=== PATIENT | male | born 1960 | race African-American/Black ===

== ENCOUNTER 2016-09-22 16:22 | Inpatient (IN) | payer OTHER, MEDICAID, MEDICARE ==
[~2016-09-22] VITALS: Ht 180.3 cm; Wt 72.3 kg
[~2016-09-22 16:22] MED LIST: ASPI81TA11 PO; CARV3.12 PO; CYCL1TAB29 PO; FURO40TA PO; LEVEMIR SQ; LISI40TA PO; ONDANSETRON HCL 4 MG/2 ML VIAL IV PUSH ONE; POTA-245 PO; PROPOFOL 200 MG/20 ML AMP IV ONE; TRAM50TA PO
[2016-09-22 16:24] VITALS: BP 204/100; PULSE 94; RESP 20; TEMP 98.2; O2SAT 97
[2016-09-22 16:41] VITALS: BP 191/88; PULSE 89
[2016-09-22] MEDS ORDERED: INSULIN HUMAN REGULAR 1,000 UNITS/10 ML VIAL SQ ONE (19:30)
[2016-09-22] MEDS ORDERED: SODIUM CHLOR 0.9% 1000 ML INJ 1,000 ML IV ONE (19:30)
[2016-09-22 19:31] VITALS: BP 207/97; PULSE 98; RESP 20; O2SAT 99
--- NOTE | 2016-09-22 19:34 | PD ---
HPI Chief Complaint: Eye Problems/Injury Stated Complaint: DR SENT/EYE PAIN Time Seen by Provider: 19:34 Travel History International Travel<30 days: No Contact w/Intl Traveler<30days: No Known affected area: No History of Present Illness HPI 56-year-old male with history of diabetes, COPD, CHF, with persistent vitreous hemorrhage, diabetic retinopathy, and blindness, presents to emergency department at the instruction of Dr. Orourke, for pain control and surgical intervention tomorrow on the left eye. Patient was in the office today and was noted to have elevated intraocular pressures of greater than 40. Following a YAG procedure, the patient developed pressures greater than 60 and a severe headache. Patient was given 500 mg Diamox in office. Patient states that this was similar to his symptoms following his last procedure. He denies a nausea vomiting. No fever or chills. Patient does report at this time that he feels like his blood glucose is not controlled as he has not been able to take his medications. He denies chest pain or tightness. No difficulty breathing. He has no other symptoms to report. History Social History Alcohol Use: No Tobacco Use: No Allergies-Medications (Allergen,Severity, Reaction): Coded Allergies: Neurontin (Verified Allergy, Intermediate, Itching, 09/22/16) Reported Meds & Prescriptions Reported Meds & Active Scripts Active Reported Tramadol (Tramadol HCl) 50 Mg Tab 50 Mg PO Q8H PRN Aspirin EC (Aspirin) 81 Mg Tabdr 81 Mg PO DAILY Carvedilol 3.125 Mg Tab 3.125 Mg PO BID Flexeril (Cyclobenzaprine HCl) 10 Mg Tab 10 Mg PO TID Furosemide 40 Mg Tab 40 Mg PO DAILY Levemir Inj (Insulin Detemir) 1,000 unit/ 10 ML Vial 28 Units SQ DAILY Do not mix with any other Insulin. Lisinopril 40 Mg Tab 40 Mg PO DAILY Klor-Con M20 (Potassium Chloride Microencaps) 20 Meq Tab 20 Meq PO DAILY Review of Systems Except as stated in HPI: all other systems reviewed are Neg Physical Exam Narrative GENERAL: Well-nourished male patient, lying in bed, in no acute distress SKIN: Warm and dry. HEAD: Atraumatic. Normocephalic. EYES: Pupils equal and round. No scleral icterus. Slight drainage from the left eye. Patient is maintaining his eyes closed for comfort. There is mild left periorbital edema. No significant erythema. ENT: No nasal bleeding or discharge. Mucous membranes pink and moist. NECK: Trachea midline. No JVD. CARDIOVASCULAR: Elevated rate and rhythm. No murmur appreciated. RESPIRATORY: No accessory muscle use. Clear to auscultation. Breath sounds equal bilaterally. GASTROINTESTINAL: Abdomen soft, non-tender, nondistended. Hepatic and splenic margins not palpable. MUSCULOSKELETAL: No obvious deformities. No clubbing. No cyanosis. No edema. NEUROLOGICAL: Awake and alert. No obvious cranial nerve deficits. Motor grossly within normal limits. Normal speech. PSYCHIATRIC: Appropriate mood and affect; insight and judgment normal. Data Data Last Documented VS Vital Signs Date Time Temp Pulse Resp B/P Pulse Ox O2 Delivery O2 Flow Rate FiO2 09/22/16 20:19 88 16 205/98 100 Room Air 09/22/16 16:24 98.2 Orders Complete Blood Count With Diff (09/22/16 19:28) Basic Metabolic Panel (Bmp) (09/22/16 19:28) Prothrombin Time / Inr (Pt) (09/22/16 19:28) Act Partial Throm Time (Ptt) (09/22/16 19:28) Iv Access Insert/Monitor (09/22/16 19:28) Beta Hydroxybutyrate (Acetone) (09/22/16 19:28) Sodium Chlor 0.9% 1000 Ml Inj (Ns 1000 M (09/22/16 19:30) Insulin Human Regular Inj (Novolin R Inj (09/22/16 19:30) Npo After Midnight W/ Po Meds (09/23/16 Breakfast) Sodium Chlorid 0.9% 500 Ml Inj (Ns 500 M (09/22/16 20:15) Chest, Single Ap (09/22/16 ) Electrocardiogram (09/22/16 ) Hydromorphone Pf Inj (Dilaudid Pf Inj) (09/22/16 20:30) Blood Glucose (09/22/16 20:41) Blood Glucose (09/22/16 21:41) Hydromorphone Pf Inj (Dilaudid Pf Inj) (09/22/16 20:45) Labs Laboratory Tests Test 09/22/16 20:00 White Blood Count 8.4 TH/MM3 Red Blood Count 4.46 MIL/MM3 Hemoglobin 11.3 GM/DL Hematocrit 34.2 % Mean Corpuscular Volume 76.6 FL Mean Corpuscular Hemoglobin 25.3 PG Mean Corpuscular Hemoglobin 33.0 % Concent Red Cell Distribution Width 14.9 % Platelet Count 146 TH/MM3 Mean Platelet Volume 11.1 FL Neutrophils (%) (Auto) 77.6 % Lymphocytes (%) (Auto) 14.5 % Monocytes (%) (Auto) 7.0 % Eosinophils (%) (Auto) 0.7 % Basophils (%) (Auto) 0.2 % Neutrophils # (Auto) 6.5 TH/MM3 Lymphocytes # (Auto) 1.2 TH/MM3 Monocytes # (Auto) 0.6 TH/MM3 Eosinophils # (Auto) 0.1 TH/MM3 Basophils # (Auto) 0.0 TH/MM3 CBC Comment DIFF FINAL Differential Comment Prothrombin Time 10.6 SEC Prothromb Time International 1.0 RATIO Ratio Activated Partial 21.8 SEC Thromboplast Time MDM Medical Decision Making Medical Screen Exam Complete: Yes Emergency Medical Condition: Yes Medical Record Reviewed: Yes Differential Diagnosis Increased intraocular pressure versus postop complication versus postop infection versus headache, cluster versus tension versus migraine versus electrolyte abnormality Narrative Course 56-year-old male presents to the emergency department at the instruction of Dr. Alvarado for admission for pain control and surgical intervention on his eye tomorrow. Patient is evaluated in the triage area. He is tearful due to his left-sided eye and head pain. He has no other focal deficits or weakness. I discussed the patient with KRISTINE Rush for Dr. Alvarado. She requests the patient be admitted for pain control and given IV mannitol 150 Grams over 60 minutes. She requests he be nothing by mouth after midnight. I discussed imaging studies with her and she states patient does not need any at this time. Preop lab work, EKG, and chest x-ray are ordered and once a medical bed becomes available, patient will be transferred to that pod and care assumed by that provider. Patient is noted to be hyperglycemic. Bedside glucose is 459. I have ordered a half liter normal saline bolus at this time if the patient is not on a monitor and has a history of CHF as well as 10 units subcutaneous regular insulin. I discussed the patient with Dr. Glover. He will assume care of the patient. Diagnosis Primary Impression: Increased intraocular pressure Qualified Code: H40.052 - Increased intraocular pressure, left Additional Impressions: Headache Qualified Code: R51 - Intractable episodic headache, unspecified headache type Vitreous hemorrhage of left eye Diabetic retinopathy Qualified Code: E13.3593 - Proliferative diabetic retinopathy of both eyes associated with diabetes mellitus of other type, unspecified proliferative retinopathy type Hyperglycemia Hypertension Qualified Code: I10 - Essential hypertension Admitting Information Admitting Physician Requests: Admit Condition: Stable Kimi Guzman Sep 22, 2016 19:34
[2016-09-22] MEDS ORDERED: SODIUM CHLORID 0.9% 500 ML INJ 500 ML IV ONE (20:15)
[2016-09-22 20:18] LABS: AUTOMATED NEUTROPHIL # 6.5 TH/MM3 (1.8-7.7); BASOPHIL % 0.2 % (0.0-2.0); EOSINOPHIL # 0.1 TH/MM3 (0-0.4); EOSINOPHIL % 0.7 % (0.0-4.0); HEMATOCRIT 34.2 % (39.0-51.0); HEMO FLAGS DIFF FINAL; LYMPH % 14.5 % (9.0-44.0); LYMPHOCYTE # 1.2 TH/MM3 (1.0-4.8); MEAN CELL VOLUME 76.6 FL (80.0-100.0); MEAN CORPUSCULAR HEMOGLOBIN 25.3 PG (27.0-34.0); NEUT % 77.6 % (16.0-70.0); PLATELET COUNT 146 TH/MM3 (150-450); RED BLOOD COUNT 4.46 MIL/MM3 (4.50-5.90); RED CELL DISTRIBUTION WIDTH 14.9 % (11.6-17.2); WHITE BLOOD COUNT 8.4 TH/MM3 (4.0-11.0)
[2016-09-22 20:19] VITALS: BP 205/98; PULSE 88; RESP 16; O2SAT 100
[2016-09-22] MEDS ORDERED: HYDROmorphone HCL PF 1 MG/ML VIAL IV PUSH ONE ×2 (20:30→20:45)
[2016-09-22 20:31] LABS: APTT (PATIENT) 21.8 SEC (24.3-30.1); PROTHROMBIN TIME - PATIENT 10.6 SEC (9.8-11.6)
--- NOTE | 2016-09-22 20:38 | RADRPT ---
EXAM DATE/TIME: 09/22/2016 20:26 [facility] COMPARISON: CHEST SINGLE AP, March 30, 2016, 7:22. INDICATIONS : Chest pain. MEDICAL HISTORY : Congestive heart failure. SURGICAL HISTORY : None. ENCOUNTER: Initial ACUITY: 1 day PAIN SCORE: 8/10 LOCATION: Bilateral chest FINDINGS: A single view of the chest demonstrates the lungs to be symmetrically aerated without evidence of mas s, infiltrate or effusion. The cardiomediastinal contours are unremarkable. Osseous structures are intact. CONCLUSION: No acute disease. Darion Kinsey MD on September 22, 2016 at 20:36 Board Certified Radiologist. This report was verified electronically.
--- NOTE | 2016-09-22 20:48 | PD ---
Data Data Last Documented VS Vital Signs Date Time Temp Pulse Resp B/P Pulse Ox O2 Delivery O2 Flow Rate FiO2 09/22/16 22:01 90 18 221/111 98 Room Air 09/22/16 16:24 98.2 Orders Complete Blood Count With Diff (09/22/16 19:28) Basic Metabolic Panel (Bmp) (09/22/16 19:28) Prothrombin Time / Inr (Pt) (09/22/16 19:28) Act Partial Throm Time (Ptt) (09/22/16 19:28) Iv Access Insert/Monitor (09/22/16 19:28) Beta Hydroxybutyrate (Acetone) (09/22/16 19:28) Sodium Chlor 0.9% 1000 Ml Inj (Ns 1000 M (09/22/16 19:30) Insulin Human Regular Inj (Novolin R Inj (09/22/16 19:30) Sodium Chlorid 0.9% 500 Ml Inj (Ns 500 M (09/22/16 20:15) Chest, Single Ap (09/22/16 ) Electrocardiogram (09/22/16 ) Hydromorphone Pf Inj (Dilaudid Pf Inj) (09/22/16 20:30) Blood Glucose (09/22/16 20:41) Blood Glucose (09/22/16 21:41) Hydromorphone Pf Inj (Dilaudid Pf Inj) (09/22/16 20:45) Admit Order (Ed Use Only) (09/22/16 22:05) Labs Laboratory Tests Test 09/22/16 20:00 White Blood Count 8.4 TH/MM3 Red Blood Count 4.46 MIL/MM3 Hemoglobin 11.3 GM/DL Hematocrit 34.2 % Mean Corpuscular Volume 76.6 FL Mean Corpuscular Hemoglobin 25.3 PG Mean Corpuscular Hemoglobin 33.0 % Concent Red Cell Distribution Width 14.9 % Platelet Count 146 TH/MM3 Mean Platelet Volume 11.1 FL Neutrophils (%) (Auto) 77.6 % Lymphocytes (%) (Auto) 14.5 % Monocytes (%) (Auto) 7.0 % Eosinophils (%) (Auto) 0.7 % Basophils (%) (Auto) 0.2 % Neutrophils # (Auto) 6.5 TH/MM3 Lymphocytes # (Auto) 1.2 TH/MM3 Monocytes # (Auto) 0.6 TH/MM3 Eosinophils # (Auto) 0.1 TH/MM3 Basophils # (Auto) 0.0 TH/MM3 CBC Comment DIFF FINAL Differential Comment Prothrombin Time 10.6 SEC Prothromb Time International 1.0 RATIO Ratio Activated Partial 21.8 SEC Thromboplast Time Sodium Level 136 MEQ/L Potassium Level 3.9 MEQ/L Chloride Level 103 MEQ/L Carbon Dioxide Level 23.1 MEQ/L Anion Gap 10 MEQ/L Blood Urea Nitrogen 41 MG/DL Creatinine 2.12 MG/DL Estimat Glomerular Filtration 39 ML/MIN Rate Random Glucose 439 MG/DL Calcium Level 8.7 MG/DL B-Hydroxybutyrate 0.28 MMOL/L [facility] Medical Record Reviewed: Yes Supervised Visit with MARC: Yes Narrative Course I, Dr. Lechuga, have reviewed the advance practice practitioner's documentation and am in agreement, met with the patient face to face, made the diagnosis, and the medical decision making was done by me. 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 Nothing by mouth past midnight status requested. The patient's pain is significantly improved after 0.75 mg hydromorphone. Case d/w Dr Wiley for [facility]. Dr Alvarado will take pt to OR in AM. Diagnosis Primary Impression: Increased intraocular pressure Qualified Code: H40.052 - Increased intraocular pressure, left Additional Impressions: Headache Qualified Code: R51 - Intractable episodic headache, unspecified headache type Hyperglycemia Diabetic retinopathy Qualified Code: E13.3593 - Proliferative diabetic retinopathy of both eyes associated with diabetes mellitus of other type, unspecified proliferative retinopathy type Vitreous hemorrhage of left eye Hypertension Qualified Code: I10 - Essential hypertension Condition: Stable Crow Lechuga MD Sep 22, 2016 20:48 Crow Lechuga MD Sep 22, 2016 20:48
[2016-09-22 20:58] LABS: BETA-HYDROXYBUTYRATE 0.28 MMOL/L (0.00-0.39); BICARBONATE 23.1 MEQ/L (21.0-32.0)
[2016-09-22 21:12] LABS: POTASSIUM 3.9 MEQ/L (3.5-5.1)
[2016-09-22 22:01] VITALS: BP 221/111; PULSE 90; RESP 18; O2SAT 98
[2016-09-22 22:13] VITALS: BP 176/97; PULSE 88; RESP 18; O2SAT 99
[2016-09-22] MEDS ORDERED: ACETAMINOPHEN 325 MG TAB PO PRN (22:30)
[2016-09-22] MEDS ORDERED: HYDROmorphone HCL PF 1 MG/ML VIAL IV PRN ×3 (22:30)
[2016-09-22] MEDS ORDERED: ACETAMINOPHEN/HYDROcodone 325 MG/5 MG TAB PO PRN (22:30)
[2016-09-22] MEDS ORDERED: NALOXONE HCL 0.4 MG/ML AMP IV PRN (22:30)
[2016-09-22] MEDS ORDERED: SODIUM CHLORIDE 0.9% FLUSH 5 ML FLUSH FLUSH PRN (22:30)
[2016-09-22] MEDS: SODIUM CHLOR 0.9% 1000 ML INJ 1,000 ML IV SCH (23:07)
--- NOTE | 2016-09-22 23:26 | HHI.HP ---
[facility] Marylin Gonzalez MD Admission Diagnosis L Eye Pain, Hyperglycemia, Renal Insufficiency Diagnoses: Chief Complaint: Left eye pain Travel History International Travel<30 Days: No Contact w/Intl Traveler <30 Da: No Traveled to Known Affected Are: No History of Present Illness 56-year-old male with a history of diabetes, COPD, CHF and vitreous hemorrhage, diabetic retinopathy and blindness was sent to the ED by Dr. Orourke for surgical intervention on the left eye in the a.m. According to the ER reports patient was seen in Dr. Orourke's office and was noted to have elevated intraocular pressures greater than 40, a YAG procedure was performed and the patient suffered increased pressures in the severe headache. Patient states in August he began to to go blind in both eyes due to vitreous hemorrhage and diabetic retinopathy. Today he denies any nausea, vomiting, fever or chills. He denies any chest pain or shortness of breath. Patient does understand the Dr. Orourke will be performing surgery in the a.m. Review of Systems Constitutional: DENIES: Fever, Chills Eyes: COMPLAINS OF: Eye inflammation, Eye pain, Vision loss Respiratory: DENIES: Cough, Sputum production, Shortness of breath Cardiovascular: DENIES: Chest pain, Lower Extremity Edema, Orthopnea Gastrointestinal: DENIES: Abdominal pain, Nausea, Vomiting Genitourinary: DENIES: Hematuria Musculoskeletal: DENIES: Back pain, Neck pain Integumentary: DENIES: Rash Hematologic/lymphatic: DENIES: Lymphadenopathy Immunologic/allergic: DENIES: Urticaria Past Family Social History Past Medical History COPD CHF Hypertension Diabetes Dyslipidemia Persistent vitreous hemorrhages Diabetic retinopathy Blindness Past Surgical History Right total knee replacement Multiple eye surgeries Reported Medications Reported Meds & Active Scripts Active Reported Tramadol (Tramadol HCl) 50 Mg Tab 50 Mg PO Q8H PRN Aspirin EC (Aspirin) 81 Mg Tabdr 81 Mg PO DAILY Carvedilol 3.125 Mg Tab 3.125 Mg PO BID Flexeril (Cyclobenzaprine HCl) 10 Mg Tab 10 Mg PO TID Furosemide 40 Mg Tab 40 Mg PO DAILY Levemir Inj (Insulin Detemir) 1,000 unit/ 10 ML Vial 28 Units SQ DAILY Do not mix with any other Insulin. Lisinopril 40 Mg Tab 40 Mg PO DAILY Klor-Con M20 (Potassium Chloride Microencaps) 20 Meq Tab 20 Meq PO DAILY Allergies: Coded Allergies: Neurontin (Verified Allergy, Intermediate, Itching, 09/22/16) Active Ordered Medications Current Medications Medications (Trade) Dose Ordered Sig/Naila Route Start Time Stop Time Status Last Admin (NS 1000 ml Inj) 1,000 ml @ 100 mls/hr Q10H IV 09/22/16 22:20 09/22/16 23:07 (NS Flush) 2 ml UNSCH PRN FLUSH 09/22/16 22:30 (NS Flush) 2 ml BID FLUSH 09/23/16 09:00 (Tylenol) 650 mg Q4H PRN PO 09/22/16 22:30 ([place] 5-325 Mg) 1 tab Q4H PRN PO 09/22/16 22:30 ([place] 10-325 Mg) 1 tab Q4H PRN PO 09/22/16 22:30 09/23/16 00:32 (Dilaudid Pf Inj) 0.5 mg Q3H PRN IV 09/22/16 22:30 (Dilaudid Pf Inj) 1 mg Q3H PRN IV 09/22/16 22:30 (Dilaudid Pf Inj) 1 mg Q3H PRN IV 09/22/16 22:30 09/23/16 00:31 (Narcan Inj) 0.4 mg UNSCH PRN IV 09/22/16 22:30 Family History Family history significant for diabetes Social History Tobacco use: Denies Alcohol use: Socially Illicit drug use: Denies Physical Exam Vital Signs Vital Signs Date Time Temp Pulse Resp B/P Pulse Ox O2 Delivery O2 Flow Rate FiO2 09/22/16 22:13 88 18 176/97 99 Room Air 09/22/16 22:01 90 18 221/111 98 Room Air 09/22/16 20:19 88 16 205/98 100 Room Air 09/22/16 19:31 98 20 207/97 99 09/22/16 16:41 89 191/88 09/22/16 16:24 98.2 94 20 204/100 97 Room Air Physical Exam GENERAL: This is a well-nourished, well-developed patient, in no apparent distress. SKIN: No rashes, ecchymoses or lesions. Cool and dry. HEAD: Atraumatic. Normocephalic. No temporal or scalp tenderness. EYES: Erythematous sclera, complete blindness. Mild drainage. ENT: Nose without bleeding, purulent drainage or septal hematoma. Throat without erythema, tonsillar hypertrophy or exudate. Uvula midline. Airway patent. NECK: Trachea midline. No JVD . CARDIOVASCULAR: Regular rate and rhythm without murmurs, gallops, or rubs. RESPIRATORY: Clear to auscultation. Breath sounds equal bilaterally. No wheezes , rales, or rhonchi. GASTROINTESTINAL: Abdomen soft, non-tender, nondistended. MUSCULOSKELETAL: Extremities without clubbing, cyanosis, or edema. No joint tenderness, effusion, or edema noted. No calf tenderness. NEUROLOGICAL: Awake and alert. Motor and sensory grossly within normal limits. Five out of 5 muscle strength in all muscle groups. Normal speech. Laboratory Laboratory Tests Test 09/22/16 20:00 White Blood Count 8.4 Red Blood Count 4.46 Hemoglobin 11.3 Hematocrit 34.2 Mean Corpuscular Volume 76.6 Mean Corpuscular Hemoglobin 25.3 Mean Corpuscular Hemoglobin 33.0 Concent Red Cell Distribution Width 14.9 Platelet Count 146 Mean Platelet Volume 11.1 Neutrophils (%) (Auto) 77.6 Lymphocytes (%) (Auto) 14.5 Monocytes (%) (Auto) 7.0 Eosinophils (%) (Auto) 0.7 Basophils (%) (Auto) 0.2 Neutrophils # (Auto) 6.5 Lymphocytes # (Auto) 1.2 Monocytes # (Auto) 0.6 Eosinophils # (Auto) 0.1 Basophils # (Auto) 0.0 CBC Comment DIFF FINAL Differential Comment Prothrombin Time 10.6 Prothromb Time International 1.0 Ratio Activated Partial 21.8 Thromboplast Time Sodium Level 136 Potassium Level 3.9 Chloride Level 103 Carbon Dioxide Level 23.1 Anion Gap 10 Blood Urea Nitrogen 41 Creatinine 2.12 Estimat Glomerular Filtration 39 Rate Random Glucose 439 Calcium Level 8.7 B-Hydroxybutyrate 0.28 Result Diagram: 09/22/16199909/22/161999 Assessment and Plan Problem List: (1) Diabetic retinopathy ICD Code: E11.319 Status: Acute (2) Diabetes mellitus ICD Code: E11.9 Status: Chronic (3) Hypertension ICD Code: I10 Status: Chronic (4) CHF (congestive heart failure) ICD Code: I50.9 Status: Acute Assessment and Plan 56-year-old male with a history of diabetes, COPD, CHF and vitreous hemorrhage, diabetic retinopathy and blindness was sent to the ED by Dr. Orourke for surgical intervention on the left eye in the a.m. Diabetic retinopathy -Surgery planned by Dr. Alvarado's in a.m. -Pain management with IV Dilaudid, and [place] by mouth Diabetes, chronic -Accu-Cheks before meals and at bedtime sliding scale insulin Hypertension, chronic -Monitor vitals -Clonidine when necessary -Reordered home medications lisinopril CHF, chronic -Reorder home medications Coreg and Lasix -Watch for fluid overload DVT prophylaxis: SCDs Written by Modesta CARMONA, acting as scribe for Dr. Wiley on 09/22/16 at 2335. The documentation accurately reflects the work performed [id number] and decisions made by me and the physician Dr Wiley on 09/22/16. The documentation accurately reflects the work performed [id number] by me Dr Wiley on 09/22/16. Discussed Condition With Patient and ED physician Physician Certification 2 Midnight Certification Type: Admission for Inpatient Services Order for Inpatient Services The services are ordered in accordance with Medicare regulations or non- Medicare payer requirements, as applicable. In the case of services not specified as inpatient-only, they are appropriately provided as inpatient services in accordance with the 2-midnight benchmark. Estimated LOS (days): 3 days is the estimated time the patient will need to remain in the hospital, assuming treatment plan goals are met and no additional complications. Post-Hospital Plan: Home Problem Qualifiers (1) Diabetic retinopathy: Qualified Code: E13.3593 - Proliferative diabetic retinopathy of both eyes associated with diabetes mellitus of other type, unspecified proliferative retinopathy type (2) Hypertension: Qualified Code: I10 - Essential hypertension Modesta Pierre Sep 22, 2016 23:26 Sahra Wiley MD Sep 23, 2016 04:08
[2016-09-22] MEDS ORDERED: MANNITOL 12.5 GM/50 ML VIAL IV ONE (23:30)
[2016-09-22] MEDS ORDERED: MANNITOL INJ 50 ML ONE (23:51)
[2016-09-23] MEDS: ACETAMINOPHEN/HYDROcodone 325 MG/10 MG TAB PO PRN (00:32)
[2016-09-23] MEDS ORDERED: GLUCAGON 1 MG/ML VIAL OTHER PRN (02:30)
[2016-09-23] MEDS ORDERED: DEXTROSE 50% IN WATER 50 ML VIAL(D50) IV PUSH PRN (02:30)
[2016-09-23 03:25] VITALS: BP 169/85; PULSE 76; RESP 20; O2SAT 99
--- NOTE | 2016-09-23 05:27 | EKG ---
Date Performed: 09/22/2016 Time Performed: 19:23:26 PTAGE: 56 years EKG: Sinus rhythm POSSIBLE LEFT ATRIAL ENLARGEMENT NONSPECIFIC ST & T-WAVE ABNORMALITY BORDERLINE ECG NO SIGNIFICANT C HANGE FROM PRIOR ELECTROCARDIOGRAM. PREVIOUS TRACING : 09/22/2016 19.22 DOCTOR: Jose Mcneal Interpretating Date/Time 09/23/2016 05:26:31
[2016-09-23 06:53] VITALS: BP 178/90; PULSE 81; RESP 20; TEMP 97.9; O2SAT 98
[2016-09-23] MEDS: INSULIN ASPART SUPPLEMENTAL SCALE SQ SCH ×4 (07:00→21:04)
[2016-09-23] MEDS ORDERED: DEXAMETHASONE SOD PHOS 4 MG/ML VIAL ONE (07:15)
[2016-09-23] MEDS ORDERED: BALANCED SALT SOLN OPHT IRRIG 15 ML BTL ONE (07:15)
[2016-09-23] MEDS ORDERED: STERILE WATER FOR INJ 20 ML VIAL ONE (07:15)
[2016-09-23] MEDS ORDERED: TOBRAMYCIN 0.3%/DEXAMETHASONE 0.1% OPHT SUSP 5 ML BTL ONE ×2 (07:15→08:54)
[2016-09-23] MEDS ORDERED: TOBRAMYCIN/DEXAMETHASONE OPTH OINT 3.5 GM TUBE ONE (07:15)
[2016-09-23] MEDS ORDERED: EPINEPHrine HCL (1:1000) 1 MG/ML VIAL ONE (07:15)
[2016-09-23] MEDS ORDERED: ceFAZolin INJ 1,000 MG VIAL ONE (07:16)
[2016-09-23 07:34] VITALS: BP 190/91
[2016-09-23] MEDS ORDERED: ATROPINE SULFATE 1% OPHT SOLN 2 ML BTL ONE (08:23)
[2016-09-23] MEDS ORDERED: FAMOTIDINE 20 MG/2 ML VIAL ONE (08:27)
[2016-09-23] MEDS ORDERED: MIDAZOLAM HCL 2 MG/2 ML VIAL ONE (08:27)
[2016-09-23] MEDS ORDERED: CYCLOPENTOLATE HCL 1% OPHT SOLN 2 ML BTL LEFT EYE SCH (08:30)
[2016-09-23] MEDS ORDERED: PHENYLEPHRINE HCL 2.5% OPTH SOLN 2 ML BTL LEFT EYE SCH (08:30)
[2016-09-23] MEDS ORDERED: ATROPINE SULFATE 1% OPHT SOLN 5 ML BTL LEFT EYE SCH (08:30)
[2016-09-23] MEDS ORDERED: TROPICAMIDE 1% OPTH SOLN 2 ML BTL LEFT EYE SCH (08:30)
[2016-09-23] MEDS ORDERED: BUPIVACAINE HCL PF 0.75% 10 ML VIAL ONE (08:54)
[2016-09-23] MEDS: SODIUM CHLORIDE 0.9% FLUSH 5 ML FLUSH FLUSH SCH ×2 (09:00→21:00)
[2016-09-23] MEDS ORDERED: LABETALOL HCL 100 MG/20 ML VIAL ONE (11:29)
[2016-09-23] MEDS ORDERED: *diphenhydrAMINE HCL 50 MG/ML VIAL PERIprocedural Use ONLY ONE (11:44)
[2016-09-23] MEDS ORDERED: DO NOT ADM ANY ANTICOAGULANT DRUGS XX PRN (11:45)
[2016-09-23] MEDS: POTASSIUM CHLORIDE 20 MEQ CONTROLLED RELEASE TAB PO SCH (11:50)
[2016-09-23] MEDS: CARVEDILOL 3.125 MG TAB PO SCH ×2 (11:50→21:03)
[2016-09-23] MEDS: FUROSEMIDE 40 MG TAB PO SCH (11:50)
[2016-09-23] MEDS: LISINOPRIL 20 MG TAB PO SCH (11:50)
[2016-09-23] MEDS ORDERED: ONDANSETRON HCL 4 MG/2 ML VIAL IM PRN (12:00)
[2016-09-23] MEDS ORDERED: LACTATED RINGER'S 1000 ML INJ 1,000 ML IV SCH (12:00)
[2016-09-23] MEDS ORDERED: oxyCODONE/ACETAMINOPHEN 5 MG/325 MG TAB PO PRN (12:00)
[2016-09-23] MEDS ORDERED: *morphine SULFATE 8 MG/ML PERIprocedure ONLY ONE (12:15)
[2016-09-23] MEDS ORDERED: *ENALAPRILAT 1.25 MG/ML VIAL PERIprocedural Use ONLY ONE (12:23)
--- NOTE | 2016-09-23 12:23 | MP ---
cc: SUNNY HUITRON M.D. 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 SURGEON Dr. Sunny Huitron. ANESTHESIA General laryngeal mask anesthesia. INDICATION Mr. Avila is a 56-year-old gentleman with a history of severe proliferative diabetic retinopathy. He underwent a second surgical procedure on 08/26/2016 to his left eye, at which time there was extreme ischemia and areas of traction and retinal detachment. This was repaired and laser performed and then silicone oil instilled. The patient was doing fairly well with improving vision to approximately counting fingers at 5 feet in his left eye when he presented with a 3-day history of headache and eye pain in the left eye. His pressure was found to be 44 and he had iris bombe. He was sent to a disaster or damage control specialist who performed an inferior laser iridotomy, however, his pressure continued to rise up to the level of 60, he was in extreme pain and agitation, complaining of headache and eye ache, when he was sent back to [place] and I had him admitted through the emergency department for pain management and IV administration of mannitol. He spent the night in the emergency department with plans to remove the silicone oil on the following day which is today. PROCEDURE He was brought to [facility] operating room one and placed on the operating table. Appropriate anesthesia monitoring devices were applied and he was placed under general anesthesia using a laryngeal mask. The left eye was identified as the operative site and then prepped and draped in the usual sterile fashion. A lid speculum was placed. At this time an appropriate time-out was called with the surgical team agreeing to the procedure and the surgical site. The conjunctivae was opened 360 degrees at the limbus using conjunctival forceps and Stefanie scissors. There was difficulty opening the superior quadrants where he had sclerostomies for two previous vitrectomies. Once the limbal peritomy was done, all four quadrants were opened with blunt dissection using the Stefanie scissors. The four recti muscles were hooked on muscle hooks and then secured with 4-0 black silk ties. Next, using the Eber 23-gauge vitrectomy system the trocar cannulas were placed 3-1/2 mm posterior to the limbus at the 2, 4 and 10 o'clock positions. At the 4 o'clock position an infusion cannula was affixed. Silicone oil was extracted from the eye and BSS allowed to flush through the eye. The visibility was poor due to a pupillary membrane across the posterior chamber IOL, this was lysed in several places but did cause some bleeding at the site of the lysis. The blood was removed with vitrectomy cutter entering at the limbus through a small incision at 11 o'clock. This allowed some visualization into the posterior pole which showed string necrosis and fibrosis on the retinal surface as well as subretinal hemorrhage. The fundus looked very disorganized and ischemic. I decided to place a 41 band around the globe to help support the areas or retina that were still attached and this was done with anchoring in all for quadrants with a 5-0 polyester suture. The orbit was flushed with a mixture of 2% lidocaine and 0.75% Marcaine after which the conjunctiva was brought back up and closed after first removing the cannulas and closing each site with a single 7-0 Vicryl suture. Once the conjunctiva was back into place, subconjunctival injections of Ancef 125 mg in half cc and Decadron 2 mg in half cc were given at separate sites, 2.5 mg in 0.1 cc of Avastin were given into the posterior pole to help control the neovascularization of the iris and elsewhere. The lid speculum was then removed and TobraDex ointment was placed on the cornea followed by patch and shield. The patient had the laryngeal mask removed in the room and was returned to recovery in good condition. SURGICAL PROCEDURE The surgical procedure was then a pars plana vitrectomy, removal of silicone oil, lysis of iris adhesions, scleral buckle procedure and intravitreal injection of Avastin. PROGNOSIS Prognosis for this eye is extremely poor. MD MERCED Harvey/CHARLEEN /11:48 AM 11:59 AM
[2016-09-23] MEDS: cloNIDine HCL 0.1 MG TAB PO PRN (14:05)
--- NOTE | 2016-09-23 16:46 | HHI.PR ---
Subjective Remarks Patient seen postop vitrectomy and other procedures noted per Ophthalmology on the left eye. He reports that he is sore on the left thigh otherwise he has no new complaints. Objective Vitals Vital Signs Date Time Temp Pulse Resp B/P Pulse Ox O2 Delivery O2 Flow Rate FiO2 09/23/16 15:00 76 14 148/85 96 Nasal Cannula 2 09/23/16 14:00 76 14 169/97 95 Nasal Cannula 2 09/23/16 13:15 80 14 169/91 94 Nasal Cannula 2 09/23/16 13:00 98.2 77 14 174/98 94 Nasal Cannula 2 09/23/16 12:45 79 14 175/92 94 Nasal Cannula 2 09/23/16 12:30 70 14 177/90 94 Nasal Cannula 2 09/23/16 12:15 59 14 183/104 94 Nasal Cannula 2 09/23/16 12:00 62 14 171/99 93 Nasal Cannula 2 09/23/16 11:45 87 14 184/98 92 Nasal Cannula 2 09/23/16 11:30 94 14 180/103 93 Nasal Cannula 2 09/23/16 11:20 98.1 93 14 193/111 92 Nasal Cannula 2 09/23/16 07:34 75 14 190/91 96 09/23/16 06:53 97.9 81 20 178/90 98 09/23/16 03:25 76 20 169/85 99 09/23/16 01:30 16 09/23/16 01:00 16 09/22/16 22:13 88 18 176/97 99 Room Air 09/22/16 22:01 90 18 221/111 98 Room Air 09/22/16 20:19 88 16 205/98 100 Room Air 09/22/16 19:31 98 20 207/97 99 I/O 09/22/16 09/22/16 09/22/16 09/23/16 09/23/16 09/23/16 07:00 15:00 23:00 07:00 15:00 23:00 Intake Total 750 ml Output Total 250 ml Balance 500 ml Intake Oral 250 ml Other 500 ml Output Urine Total 250 ml Result Diagram: 09/22/16199909/22/161999 Imaging Last Impressions Chest X-Ray 09/22/16 0000 Signed Impressions: Service Date/Time: Thursday, September 22, 2016 20:26 - CONCLUSION: No acute disease. Darion Kinsey MD Objective Remarks GENERAL: This is a well-nourished, well-developed patient. Postop. Left side is covered. Right eye is closed. Patient is blind. CARDIOVASCULAR: Normal rate and regular rhythm without murmurs, gallops, or rubs. RESPIRATORY: Good respiratory efforts. Breath sounds equal and clear to auscultation bilaterally. GASTROINTESTINAL: Abdomen soft, non-tender, non-distended. Normal active bowel sounds MUSCULOSKELETAL: Extremities without cyanosis, or edema. NEURO: Alert & Oriented x4 to person, place, time, situation. Moves all ext x4 PSYCH: Appropriate mood and affect. A/P Problem List: (1) Diabetic retinopathy ICD Code: E11.319 Status: Acute (2) Diabetes mellitus ICD Code: E11.9 Status: Chronic (3) Hypertension ICD Code: I10 Status: Chronic (4) CHF (congestive heart failure) ICD Code: I50.9 Status: Acute (5) Increased intraocular pressure ICD Code: H40.059 Status: Acute Assessment and Plan 56-year-old male with a history of diabetes, COPD, CHF and vitreous hemorrhage, diabetic retinopathy and blindness admitted for surgical intervention due to increased intraocular pressure. Diabetic retinopathy. 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 -Patient is postop vitrectomy, removal of silicone oil, lysis of iris adhesions , scleral buckle procedure and intravitreal injection of Avastin per Dr. Nath. - Poor prognosis per Dr. Nath. -Pain management with IV Dilaudid, and [place] by mouth - Further plans per ophthalmology. Diabetes with retinopathy -Accu-Cheks before meals and at bedtime sliding scale insulin. - Add Levemir 10 units daily at bedtime. Adjust insulin as indicated. Hypertension - Resume home dose Coreg and lisinopril CHF not in exacerbation -Reorder home dose Coreg, lisinopril and Lasix DVT prophylaxis: SCDs Problem Qualifiers (1) Diabetic retinopathy: Qualified Code: E13.3593 - Proliferative diabetic retinopathy of both eyes associated with diabetes mellitus of other type, unspecified proliferative retinopathy type (2) Hypertension: Qualified Code: I10 - Essential hypertension (3) Increased intraocular pressure: Qualified Code: H40.052 - Increased intraocular pressure, left Pooja Barroso MD Sep 23, 2016 16:45
[2016-09-23 18:07] VITALS: BP 147/76; PULSE 89; RESP 20; TEMP 98.6; O2SAT 97
[2016-09-23] MEDS ORDERED: INSULIN DETEMIR 100 UNITS/ML VIAL SQ SCH (21:00)
[2016-09-23 21:14] VITALS: BP 158/79; PULSE 82; RESP 20; TEMP 97.7; O2SAT 98
[2016-09-24 01:44] VITALS: BP 162/79; PULSE 82; RESP 17; TEMP 96.7; O2SAT 99
[2016-09-24 04:00] VITALS: BP 186/92; PULSE 73; RESP 17; TEMP 97.3; O2SAT 98
[2016-09-24] MEDS: SODIUM CHLOR 0.9% 1000 ML INJ 1,000 ML IV SCH (04:20)
[2016-09-24] MEDS: ACETAMINOPHEN/HYDROcodone 325 MG/10 MG TAB PO PRN ×2 (05:50→12:55)
[2016-09-24] MEDS: cloNIDine HCL 0.1 MG TAB PO PRN (05:50)
[2016-09-24] MEDS: INSULIN ASPART SUPPLEMENTAL SCALE SQ SCH ×2 (06:38→11:00)
[2016-09-24 08:00] VITALS: BP 155/84; PULSE 70; RESP 17; TEMP 97.4; O2SAT 97
[2016-09-24 08:04] LABS: BICARBONATE 22.7 MEQ/L (21.0-32.0); POTASSIUM 3.7 MEQ/L (3.5-5.1)
[2016-09-24 08:12] LABS: HEMATOCRIT 32.7 % (39.0-51.0); MEAN CELL VOLUME 77.4 FL (80.0-100.0); MEAN CORPUSCULAR HEMOGLOBIN 25.2 PG (27.0-34.0); MEAN CORPUSCULAR HGB CONC 32.5 % (32.0-36.0); PLATELET COUNT 129 TH/MM3 (150-450); RED BLOOD COUNT 4.22 MIL/MM3 (4.50-5.90); RED CELL DISTRIBUTION WIDTH 14.9 % (11.6-17.2); REVIEW FLAG FINAL; WHITE BLOOD COUNT 7.9 TH/MM3 (4.0-11.0)
[2016-09-24] MEDS: POTASSIUM CHLORIDE 20 MEQ CONTROLLED RELEASE TAB PO SCH (09:35)
[2016-09-24] MEDS: SODIUM CHLORIDE 0.9% FLUSH 5 ML FLUSH FLUSH SCH (09:35)
[2016-09-24] MEDS: CARVEDILOL 3.125 MG TAB PO SCH (09:35)
[2016-09-24] MEDS: LISINOPRIL 20 MG TAB PO SCH (09:36)
[2016-09-24] MEDS: FUROSEMIDE 40 MG TAB PO SCH (09:36)
[2016-09-24] MEDS ORDERED: INFLUENZA VIRUS VACCINE (QUADRIVALENT) 0.5 ML SYR IM ONE (10:00)
[2016-09-24] MEDS ORDERED: PERC7.5T13 PO (10:33)
--- NOTE | 2016-09-24 10:34 | HHI.DCPOC ---
Discharge Care Plan Diagnosis: (1) Vitreous hemorrhage of left eye (2) Increased intraocular pressure (3) Diabetic neuropathy (4) Diabetic retinopathy Goals to Promote Your Health * To prevent worsening of your condition and complications * To maintain your health at the optimal level Directions to Meet Your Goals Take your medications as prescribed Follow your dietary instruction Follow activity as directed Keep your appointments as scheduled Take your immunizations and boosters as scheduled If your symptoms worsen call your PCP, if no PCP go to Urgent Care Center or Emergency Room Smoking is Dangerous to Your Health. Avoid second hand smoke Call the 24-hour hour crisis hotline for domestic abuse at Pooja Barroso MD Sep 24, 2016 10:34
--- NOTE | 2016-09-24 10:38 | HHI.DS ---
Discharge Summary Admission Date Sep 22, 2016 at 22:07 Discharge Date: Sep 24, 2016 Admitting Diagnosis L Eye Pain, Hyperglycemia, Renal Insufficiency (1) Diabetic retinopathy ICD Code: E11.319 (2) Diabetes mellitus ICD Code: E11.9 (3) Hypertension ICD Code: I10 (4) CHF (congestive heart failure) ICD Code: I50.9 (5) Increased intraocular pressure ICD Code: H40.059 Procedures Vitrectomy, removal of silicone oil, lysis of iris adhesions, scleral buckle procedure and intravitreal injection of Avastin Brief History - From Admission 56-year-old male with a history of diabetes, COPD, CHF and vitreous hemorrhage, diabetic retinopathy and blindness was sent to the ED by Dr. Orourke for surgical intervention on the left eye in the a.m. According to the ER reports patient was seen in Dr. Orourke's office and was noted to have elevated intraocular pressures greater than 40, a YAG procedure was performed and the patient suffered increased pressures in the severe headache. Patient states in August he began to to go blind in both eyes due to vitreous hemorrhage and diabetic retinopathy. Today he denies any nausea, vomiting, fever or chills. He denies any chest pain or shortness of breath. CBC/BMP: 09/24/16 0725 09/24/16 0725 Significant Findings Laboratory Tests Test 09/22/16 09/24/16 20:00 07:25 Red Blood Count 4.46 MIL/MM3 4.22 MIL/MM3 (4.50-5.90) (4.50-5.90) Hemoglobin 11.3 GM/DL 10.6 GM/DL (13.0-17.0) (13.0-17.0) Hematocrit 34.2 % 32.7 % (39.0-51.0) (39.0-51.0) Mean Corpuscular Volume 76.6 FL 77.4 FL (80.0-100.0) (80.0-100.0) Mean Corpuscular Hemoglobin 25.3 PG 25.2 PG (27.0-34.0) (27.0-34.0) Platelet Count 146 TH/MM3 129 TH/MM3 (150-450) (150-450) Mean Platelet Volume 11.1 FL 11.4 FL (7.0-11.0) (7.0-11.0) Neutrophils (%) (Auto) 77.6 % (16.0-70.0) Activated Partial 21.8 SEC Thromboplast Time (24.3-30.1) Blood Urea Nitrogen 41 MG/DL (7-18) 30 MG/DL (7-18) Creatinine 2.12 MG/DL 2.28 MG/DL (0.60-1.30) (0.60-1.30) Estimat Glomerular Filtration 39 ML/MIN (>89) 36 ML/MIN (>89) Rate Random Glucose 439 MG/DL 285 MG/DL (74-106) (74-106) Chloride Level 109 MEQ/L (98-107) Calcium Level 8.4 MG/DL (8.5-10.1) Imaging Last Impressions Chest X-Ray 09/22/16 0000 Signed Impressions: Service Date/Time: Thursday, September 22, 2016 20:26 - CONCLUSION: No acute disease. Darion Kinsey MD PE at Discharge GENERAL: This is a well-nourished, well-developed patient. Postop. Left side is covered. Right eye is closed. Patient is blind. CARDIOVASCULAR: Normal rate and regular rhythm without murmurs, gallops, or rubs. RESPIRATORY: Good respiratory efforts. Breath sounds equal and clear to auscultation bilaterally. GASTROINTESTINAL: Abdomen soft, non-tender, non-distended. Normal active bowel sounds MUSCULOSKELETAL: Extremities without cyanosis, or edema. NEURO: Alert & Oriented x4 to person, place, time, situation. Moves all ext x4 PSYCH: Appropriate mood and affect. Pt update on day of discharge Patient reports that he is doing okay except for usual pain on the left eye. Hospital Course 56-year-old male with a history of diabetes, COPD, CHF and vitreous hemorrhage, diabetic retinopathy and blindness admitted for surgical intervention due to increased intraocular pressure. Treatment course detailed below: Diabetic retinopathy. 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 -Patient is postop vitrectomy, removal of silicone oil, lysis of iris adhesions , scleral buckle procedure and intravitreal injection of Avastin per Dr. Nath. - Poor prognosis per Dr. Nath. The patient was cleared for discharge to follow-up in the clinic. -He was given a prescription for Percocet for pain control. Diabetes with retinopathy Patient was treated with Levemir and sliding scale insulin. He is to resume his home dose insulin follow-up with his primary care physician. Hypertension - Resume home dose Coreg and lisinopril CHF not in exacerbation -Continue home dose Coreg, lisinopril and Lasix Pt Condition on Discharge: Stable Discharge Disposition: Discharge Home Discharge Time: <= 30 minutes Discharge Instructions DIET: Follow Instructions for: Diabetic Diet Activities you can perform: Regular-No Restrictions Follow up Referrals: Ophthalmology PCP Follow-up - 1 Week New Medications: Oxycodone-Acetaminophen (Percocet) 7.5-325 mg Tab 1 TAB PO Q4H PRN PAIN #20 Ref 0 TAB Continued Medications: Aspirin DR (Aspirin EC) 81 Mg Tabdr 81 MG PO DAILY Ref 0 TAB Carvedilol (Carvedilol) 3.125 Mg Tab 3.125 MG PO BID #60 Ref 0 TAB Cyclobenzaprine (Flexeril) 10 Mg Tab 10 MG PO TID Muscle Spasm #90 Ref 0 TAB Furosemide (Furosemide) 40 Mg Tab 40 MG PO DAILY #30 Ref 0 TAB Insulin Detemir Inj (Levemir Inj) 1,000 unit/ 10 ML Vial 28 UNITS SQ DAILY Do not mix with any other Insulin. Blood Sugar Management Ref 0 VIAL Lisinopril (Lisinopril) 40 Mg Tab 40 MG PO DAILY Blood Pressure Management #30 Ref 0 TAB Potassium Chloride Microencaps (Klor-Con M20) 20 Meq Tab 20 MEQ PO DAILY Electrolyte Replacement #30 Ref 0 TAB Discontinued Medications: Tramadol (Tramadol) 50 Mg Tab 50 MG PO Q8H PRN PAIN Ref 0 TAB Pooja Barroso MD Sep 24, 2016 10:38
[2016-09-24 12:00] VITALS: BP 167/92; PULSE 79; RESP 16; TEMP 98.1; O2SAT 97
== END 2016-09-24 13:54 | disposition home or self-care (01) | DRG 115 ==
LOC: HOR 16:22 → NEDA 22:07 → NEDH 09-23 02:25 → HSDI 09-23 10:32 → N05B 09-23 17:03
PROVIDERS: ADMIT Family Medicine; ATTEND Family Medicine
PROC: 08T53ZZ Resection of Left Vitreous, Percutaneous Approach (ICD-10-PCS; 2016-09-23)
PROC: 08ND3ZZ Release Left Iris, Percutaneous Approach (ICD-10-PCS; 2016-09-23)
PROC: 08U10JZ Supplement of Left Eye with Synthetic Substitute, Open Approach (ICD-10-PCS; principal; 2016-09-23 08:44)
DX: H43.12 Vitreous hemorrhage, left eye (principal); E11.65 Type 2 diabetes mellitus with hyperglycemia; I50.9 Heart failure, unspecified; H40.212 Acute angle-closure glaucoma, left eye; E11.3592 Type 2 diabetes mellitus with proliferative diabetic retinopathy without macular edema, left eye; H40.052 Ocular hypertension, left eye; J44.9 Chronic obstructive pulmonary disease, unspecified; H54.0 Blindness, both eyes; R51 Headache; I10 Essential (primary) hypertension; E78.5 Hyperlipidemia, unspecified; Z23 Encounter for immunization; Z79.4 Long term (current) use of insulin; Z96.651 Presence of right artificial knee joint
CPT/HCPCS: 71010; 80048; 82010; 82948; 85025; 85027; 85610; 85730; 90686; 93005; 96372; 96374; J0171; J0690; J1100; J1170; J1200; J1815; J2150; J2250; J2270; J2405; J3010; J7030; Q2038

== ENCOUNTER 2017-03-10 07:09 | Day surgery (SDC) | payer OTHER, MEDICAID ==
[~2017-03-10] VITALS: Ht 180.3 cm; Wt 80.2 kg
[~2017-03-10 07:09] MED LIST changes: +BALANCED SALT SOLN OPHT IRRIG 15 ML BTL ONE; +DEXAMETHASONE SOD PHOS 4 MG/ML VIAL ONE; +EPINEPHrine HCL (1:1000) 1 MG/ML VIAL ONE; -ONDANSETRON HCL 4 MG/2 ML VIAL IV PUSH ONE; +PERC7.5T13 PO; -PROPOFOL 200 MG/20 ML AMP IV ONE; +STERILE WATER FOR INJ 20 ML VIAL ONE; +TOBRAMYCIN/DEXAMETHASONE OPTH OINT 3.5 GM TUBE ONE; -TRAM50TA PO; +TRIAMCINOLONE ACETONIDE/PF 40 MG/ML OPTH VIAL ONE; +ceFAZolin INJ 1,000 MG VIAL ONE
[2017-03-10] MEDS ORDERED: SODIUM CHLORID 0.9% 500 ML IV PRN (07:45)
[2017-03-10] MEDS ORDERED: METOPROLOL TARTRATE 25 MG TAB PO PRN (07:45)
[2017-03-10] MEDS ORDERED: LACTATED RINGER'S 1000 ML IV PRN (07:45)
[2017-03-10] MEDS ORDERED: POVIDONE IODINE 5% (ANTISEPSIS KIT) 4 APPLICATIONS EACH NARE PRN (07:45)
[2017-03-10] MEDS ORDERED: CHLORHEXIDINE GLUCONATE 2 % 1 PACK (2 CLOTHS) TOPICAL PRN (07:45)
[2017-03-10] MEDS ORDERED: INSULIN HUMAN REGULAR 1,000 UNITS/10 ML VIAL SQ PRN (07:45)
[2017-03-10 08:24] VITALS: BP 180/100; PULSE 76; RESP 20; TEMP 97.8; O2SAT 100
[2017-03-10] MEDS ORDERED: ATROPINE SULFATE 1% OPHT SOLN 2 ML BTL ONE (08:49)
[2017-03-10 09:01] LABS: AUTOMATED NEUTROPHIL # 4.4 TH/MM3 (1.8-7.7); BASOPHIL % 0.5 % (0.0-2.0); EOSINOPHIL # 0.1 TH/MM3 (0-0.4); EOSINOPHIL % 1.4 % (0.0-4.0); HEMATOCRIT 34.3 % (39.0-51.0); HEMO FLAGS DIFF FINAL; LYMPH % 25.2 % (9.0-44.0); LYMPHOCYTE # 1.7 TH/MM3 (1.0-4.8); MEAN CELL VOLUME 75.2 FL (80.0-100.0); MEAN CORPUSCULAR HEMOGLOBIN 24.9 PG (27.0-34.0); MEAN CORPUSCULAR HGB CONC 33.1 % (32.0-36.0); MONO % 7.5 % (0.0-8.0); NEUT % 65.4 % (16.0-70.0); PLATELET COUNT 141 TH/MM3 (150-450); RED BLOOD COUNT 4.57 MIL/MM3 (4.50-5.90); RED CELL DISTRIBUTION WIDTH 14.8 % (11.6-17.2); WHITE BLOOD COUNT 6.7 TH/MM3 (4.0-11.0)
[2017-03-10] MEDS: ATROPINE SULFATE 1% OPHT SOLN 5 ML BTL LEFT EYE SCH ×4 (10:10→11:00)
[2017-03-10] MEDS: TROPICAMIDE 1% OPHT SOLN 15 ML BTL LEFT EYE SCH ×4 (10:10→11:00)
[2017-03-10] MEDS: PHENYLEPHRINE HCL 2.5% OPTH SOLN 2 ML BTL LEFT EYE SCH ×4 (10:10→11:00)
[2017-03-10] MEDS: CYCLOPENTOLATE HCL 1% OPHT SOLN 2 ML BTL LEFT EYE SCH ×4 (10:10→11:00)
[2017-03-10] MEDS ORDERED: LACTATED RINGER'S 1000 ML INJ 1,000 ML IV ONE (12:00)
[2017-03-10] MEDS ORDERED: ONDANSETRON HCL 4 MG/2 ML VIAL IV PUSH ONE (12:00)
[2017-03-10] MEDS ORDERED: PROPOFOL 200 MG/20 ML AMP IV ONE (12:00)
[2017-03-10] MEDS ORDERED: ePHEDrine/NS 25 MG/5 ML SYR IV ONE (12:00)
[2017-03-10] MEDS ORDERED: DO NOT ADM ANY ANTICOAGULANT DRUGS PRN (14:00)
[2017-03-10] MEDS ORDERED: MIDAZOLAM HCL 2 MG/2 ML VIAL ONE (14:04)
[2017-03-10] MEDS ORDERED: *diphenhydrAMINE HCL 50 MG/ML VIAL PERIprocedural Use ONLY ONE (15:58)
[2017-03-10] MEDS ORDERED: *LABETALOL HCL 100 MG/20 ML VIAL PERIprocedural Use ONLY ONE (16:03)
[2017-03-10] MEDS ORDERED: *morphine SULFATE 8 MG/ML PERIprocedure ONLY ONE ×2 (16:39→17:17)
[2017-03-10] MEDS ORDERED: LORazepam 2 MG/ML VIAL ONE (16:43)
[2017-03-10] MEDS ORDERED: hydrALAZINE HCL 20 MG/ML VIAL ONE ×2 (16:44→17:17)
[2017-03-10] MEDS ORDERED: LORazepam 2 MG/ML VIAL IV ONE (18:00)
[2017-03-10] MEDS ORDERED: hydrALAZINE HCL 20 MG/ML VIAL IV ONE ×3 (18:00→19:00)
[2017-03-10 18:15] VITALS: TEMP 98.2
[2017-03-10 18:48] VITALS: BP 180/82; PULSE 85; RESP 14; O2SAT 99
--- NOTE | 2017-03-11 14:08 | MP ---
cc: SUNNY HUITRON M.D. 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 PROCEDURE Trans pars plana vitrectomy with lysis of iris synechia, peripheral iridectomies, washout of anterior and posterior chamber, air-fluid exchange, and injection of intravitreal Eylea 2 mg in 0.05 cc, left eye. SURGEON Dr. Sunny Huitron ANESTHESIA General laryngeal mask. INDICATION Mr. Avila is a 56-year-old gentleman with severe proliferative diabetic retinopathy and multiple retinal procedures on both eyes. 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 It was thought that he needed to have the iris synechia lysed and peripheral iridectomies placed to try and prevent this from happening again. The condition of the retina is poor. The risks and benefits of surgery were discussed with the patient. Informed consent was obtained. No guarantee was made as to the outcome. DETAILS OF PROCEDURE He was brought to [facility] Operating Room-1 and placed on the operating table. Appropriate anesthesia monitoring devices were applied and he was placed under general anesthesia using a laryngeal mask. The left eye was prepped and draped in the usual sterile fashion. A lid speculum was placed and the microscope was brought around and adjusted. At this time the appropriate timeout was called with the surgical team agreeing to the surgical site and the planned procedure. Using the Eber 23-gauge vitrectomy system the trocar cannulas were placed 3.5 mm posterior to the limbus with the first one being placed at 3 o'clock, verified to be in the posterior chamber and infusion cannula affixed to it. Two additional trocar cannulas were made at 10 and 2 o'clock and plugged with sterile plugs. The anterior chamber was entered with a 30-gauge needle on a TB syringe at the limbus and attempts were made to place the synechia on the posterior surface of the iris to the capsule. This generated hemorrhage in the anterior chamber which was controlled by increasing the intraocular pressure and allowing the blood to clot. The eye was then entered with the vitrectomy cutter and peripheral iridectomies of good size were made at 12:30 o'clock, 10 o'clock and 5:30 o'clock. Again this generated some bleeding so the plugs were placed back in the eye and the blood was allowed to clot and stop. After that occurred a 23-gauge MVR blade was used at the limbus to create a shelf incision to allow the vitrectomy cutter to be placed into the anterior chamber so the blood clot over the posterior chamber IOL centrally and on the iris could be removed. With this being done there was some visualization of the posterior pole which allowed washout of the hemorrhage there. The retina was ischemic. There were areas of traction detachment. Overall the retina looked very ischemic. An air-fluid exchange was performed. The limbal incision was closed with interrupted 10-0 nylon suture. The plugs were removed one by one and the superonasal sclerostomy required a single 7-0 Vicryl to make it airtight. Atropine drops were placed on the cornea followed by subconjunctival injections of Ancef 125 mg in 0.5 cc and Decadron 2 mg in 0.5 cc. The last thing was injection 3 mm posterior to the limbus at the 9 o'clock position of 2 mg in 0.05 cc of Eylea, an anti-VEGF agent. Atropine drops were placed on the cornea. The lid speculum was removed. The patient was undraped. TobraDex ointment was placed on the cornea and then the left eye was patched and shielded. The patient had the laryngeal mask removed in the room and was returned to Recovery in a head-up position. When he is awake and cooperative he will be asked to begin some face-down positioning. MD MERCED Harvey/STEPHANIE /4:10 PM /1:47 PM
== END 2017-03-10 19:00 | disposition home or self-care (01) ==
LOC: HSDC 07:09
PROVIDERS: ATTEND Ophthalmology
DX: E13.3 Other specified diabetes mellitus with ophthalmic complications (principal); H21.542 Posterior synechiae (iris), left eye; H21.42 Pupillary membranes, left eye; H40.20X0 Unspecified primary angle-closure glaucoma, stage unspecified
CPT/HCPCS: 00145; 65875; 67036; 82948; 85025; J0171; J0360; J0690; J1100; J1200; J1815; J2060; J2250; J2270; J2405; J3010; J7120; J3300

== ENCOUNTER 2017-03-27 07:25 | Inpatient (IN) | payer OTHER, MEDICAID, MEDICARE ==
[2017-03-27] VITALS (8 sets, daily range): BP systolic 127–197; BP diastolic 71–113; PULSE 80–107; RESP 17–21; TEMP 97.8–99.9; O2SAT 98–100
[~2017-03-27] VITALS: Ht 180.3 cm; Wt 79.9 kg
[~2017-03-27 07:25] MED LIST changes: -BALANCED SALT SOLN OPHT IRRIG 15 ML BTL ONE; -DEXAMETHASONE SOD PHOS 4 MG/ML VIAL ONE; -EPINEPHrine HCL (1:1000) 1 MG/ML VIAL ONE; -STERILE WATER FOR INJ 20 ML VIAL ONE; -TOBRAMYCIN/DEXAMETHASONE OPTH OINT 3.5 GM TUBE ONE; -TRIAMCINOLONE ACETONIDE/PF 40 MG/ML OPTH VIAL ONE; -ceFAZolin INJ 1,000 MG VIAL ONE
[2017-03-27] MEDS ORDERED: ONDANSETRON HCL 4 MG/2 ML VIAL ONE (07:49)
[2017-03-27] MEDS ORDERED: MORPHINE SULFATE 8 MG/ML INJ IV PUSH ONE ×2 (08:00→11:30)
[2017-03-27] MEDS ORDERED: SODIUM CHLORIDE 0.9% FLUSH 10 ML FLUSH IVF PRN (08:00)
[2017-03-27] MEDS ORDERED: ASPIRIN 81 MG CHEW TAB PO ONE (08:00)
--- NOTE | 2017-03-27 08:05 | PD ---
HPI Chief Complaint: Cardiac Complaint Time Seen by Provider: 07:35 Travel History International Travel<30 days: No Contact w/Intl Traveler<30days: No Traveled to known affect area: No History of Present Illness HPI 56yo M with PMH of COPD, CHF, DM, bilateral blindness presents to the ED with 2 complaints. States he has been having epigastric abdominal pain for 2 days and it is nonradiating and associated with nausea. Pt also with left sided chest pain for 1 day and states this is a different pain than the abdominal pain. Intermittent, nonradiating. +Cough. 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 Never had an ND. Denies any fever, sob , dysuria, hematuria, focal weakness or numbness. Pt also has chronic lower back pain for which he used to take dilaudid and currently takes tramadol for and has not seen pain management for a while. PFSH Past Medical History Arthritis: Yes (CHRONIC BACK/ BODY PAIN) Blood Disorders: No Anxiety: No Depression: No Heart Rhythm Problems: No Cancer: No Cardiovascular Problems: Yes High Cholesterol: No Chest Pain: No Congestive Heart Failure: Yes Diabetes: Yes Patient Takes Glucophage: Yes Diminished Hearing: No Endocrine: Yes Gastrointestinal Disorders: No GERD: No Glaucoma: No Genitourinary: No Hepatitis: No Hiatal Hernia: No Hypertension: Yes Immune Disorder: No Kidney Stones: No Musculoskeletal: Yes (ARTHRITIS) Neurologic: No Psychiatric: No Reproductive: No Respiratory: No Integumentary: No Immunizations Current: No Pneumonia: Yes (WITH SEPSIS) Renal Failure: No Thyroid Disease: No Ulcer: Yes (2013) Past Surgical History Abdominal Surgery: Yes AICD: No Cardiac Surgery: No Ear Surgery: No Endocrine Surgery: No Eye Surgery: Yes (SURGERY TO BOTH EYES) Genitourinary Surgery: No Joint Replacement: No Oral Surgery: No Pacemaker: No Thoracic Surgery: No Other Surgery: Yes (Liver Drain, Right Knee Arthroscopy, Eye Sx) Social History Alcohol Use: Yes (social) Tobacco Use: No Substance Use: No Allergies-Medications (Allergen,Severity, Reaction): Coded Allergies: Neurontin (Verified Allergy, Intermediate, Itching, 03/27/17) Reported Meds & Prescriptions Reported Meds & Active Scripts Active Reported Aspirin EC (Aspirin) 81 Mg Tabdr 81 Mg PO DAILY Carvedilol 3.125 Mg Tab 3.125 Mg PO BID Flexeril (Cyclobenzaprine HCl) 10 Mg Tab 10 Mg PO TID Furosemide 40 Mg Tab 40 Mg PO DAILY Levemir Inj (Insulin Detemir) 1,000 unit/ 10 ML Vial 28 Units SQ DAILY Do not mix with any other Insulin. Lisinopril 40 Mg Tab 40 Mg PO DAILY Klor-Con M20 (Potassium Chloride Microencaps) 20 Meq Tab 20 Meq PO DAILY Review of Systems Except as stated in HPI: all other systems reviewed are Neg Physical Exam Narrative GENERAL: 56yo M in mild distress. SKIN: Focused skin assessment warm/dry. HEAD: Atraumatic. Normocephalic. EYES: Bilateral blindness. ENT: No nasal bleeding or discharge. Mucous membranes pink and moist. NECK: Trachea midline. No JVD. CARDIOVASCULAR: Regular rate and rhythm. No murmur appreciated. RESPIRATORY: No accessory muscle use. Clear to auscultation. Breath sounds equal bilaterally. GASTROINTESTINAL: Abdomen soft, +Epigastric abdominal pain. No rebound tenderness or guarding. MUSCULOSKELETAL: No obvious deformities. No clubbing. No cyanosis. Trace lower ext edema. NEUROLOGICAL: Awake and alert. No obvious cranial nerve deficits. Motor grossly within normal limits. Normal speech. PSYCHIATRIC: Appropriate mood and affect; insight and judgment normal. Data Data Last Documented VS Vital Signs Date Time Temp Pulse Resp B/P Pulse Ox O2 Delivery O2 Flow Rate FiO2 03/27/17 09:03 145/78 03/27/17 08:26 100 Room Air 03/27/17 07:40 99.9 101 20 Orders Ondansetron Inj (Zofran Inj) (03/27/17 07:49) Electrocardiogram (03/27/17 07:56) B-Type Natriuretic Peptide (03/27/17 07:56) Ckmb (Isoenzyme) Profile (03/27/17 07:56) Complete Blood Count With Diff (03/27/17 07:56) Magnesium (Mg) (03/27/17 07:56) Prothrombin Time / Inr (Pt) (03/27/17 07:56) Act Partial Throm Time (Ptt) (03/27/17 07:56) Troponin I (03/27/17 07:56) Lipase (03/27/17 07:56) Chest, Single Ap (03/27/17 07:56) Ecg Monitoring (03/27/17 07:56) Bilateral Bp Monitoring (03/27/17 07:56) Iv Access Insert/Monitor (03/27/17 07:56) Oximetry (03/27/17 07:56) Oxygen Administration (03/27/17 07:56) Aspirin Chew (Aspirin Chew) (03/27/17 08:00) Sodium Chloride 0.9% Flush (Ns Flush) (03/27/17 08:00) Comprehensive Metabolic Panel (03/27/17 07:56) Morphine Inj (Morphine Inj) (03/27/17 08:00) Blood Culture (03/27/17 07:58) Lactic Acid Sepsis Protocol (03/27/17 07:58) CKMB (03/27/17 08:15) CKMB% (03/27/17 08:15) Ct Abd/Pel W/O Iv Contrast (03/27/17 ) Admit Order (Ed Use Only) (03/27/17 10:32) Labs Laboratory Tests Test 03/27/17 08:15 White Blood Count 6.6 TH/MM3 Red Blood Count 5.03 MIL/MM3 Hemoglobin 12.3 GM/DL Hematocrit 38.3 % Mean Corpuscular Volume 76.2 FL Mean Corpuscular Hemoglobin 24.6 PG Mean Corpuscular Hemoglobin 32.2 % Concent Red Cell Distribution Width 14.4 % Platelet Count 146 TH/MM3 Mean Platelet Volume 11.2 FL Neutrophils (%) (Auto) 73.0 % Lymphocytes (%) (Auto) 12.8 % Monocytes (%) (Auto) 13.2 % Eosinophils (%) (Auto) 0.5 % Basophils (%) (Auto) 0.5 % Neutrophils # (Auto) 4.8 TH/MM3 Lymphocytes # (Auto) 0.8 TH/MM3 Monocytes # (Auto) 0.9 TH/MM3 Eosinophils # (Auto) 0.0 TH/MM3 Basophils # (Auto) 0.0 TH/MM3 CBC Comment DIFF FINAL Differential Comment Prothrombin Time 10.7 SEC Prothromb Time International 1.0 RATIO Ratio Activated Partial 29.2 SEC Thromboplast Time Sodium Level 135 MEQ/L Potassium Level 3.8 MEQ/L Chloride Level 102 MEQ/L Carbon Dioxide Level 23.1 MEQ/L Anion Gap 10 MEQ/L Blood Urea Nitrogen 23 MG/DL Creatinine 2.46 MG/DL Estimat Glomerular Filtration 33 ML/MIN Rate Random Glucose 113 MG/DL Lactic Acid Level 1.3 mmol/L Calcium Level 9.0 MG/DL Magnesium Level 1.9 MG/DL Total Bilirubin 0.3 MG/DL Aspartate Amino Transf 29 U/L (AST/SGOT) Alanine Aminotransferase 28 U/L (ALT/SGPT) Alkaline Phosphatase 89 U/L Total Creatine Kinase 582 U/L Creatine Kinase MB 1.8 NG/ML Creatine Kinase MB % 0.3 % Troponin I 0.05 NG/ML B-Type Natriuretic Peptide 45 PG/ML Total Protein 7.7 GM/DL Albumin 3.3 GM/DL Lipase 80 U/L [facility] Medical Decision Making Medical Screen Exam Complete: Yes Emergency Medical Condition: Yes Interpretation(s) EKG: Sinus tachycardia at 103bpm. ST depression II, V5, V6. Differential Diagnosis Pneumonia vs. ACS vs. Pancreatitis vs. gastritis vs. colitis Narrative Course 56yo M with PMH of CHF, DM here with left sided chest pain for 1 day. It is atypical. Labs reviewed, no leukocytosis. H/H low but at baseline. BUN/ Creatinine elevated but at baseline. Lactic acid 1.3. BNP 45. CK is mildly elevated but CKMB is normal. Troponin is within normal limits at 0.05. Lipase normal. CXR normal. CTa/p showed normal exam except for prostatic enlargement. Pt given aspirin, morphine and zofran. Pt reevaluated at bedside and still with some pain so another dose of morphine ordered. States morphine did help. Pt now states he follows with Dr. Best and saw him in December. Unsure what tests were done. I discussed with Dr. Best on the phone and he states that he remembers seeing him but cannot states if nuclear stress test was completed at this time. Does recommend ruling out ACS in chest pain center and they can contact him in the morning prior to stress test. I initially admitted pt to chest pain center to r/o ACS. However, Dr. Gilmore evaluated the patient and feels that GI consult is appropriate since pt is still having epigastric abdominal pain. Pt still needs to have ACS ruled out but since pt is still with abdominal pain, needs further work up for this pain as well so will admit to hospitalist instead of chest pain center. Discussed with Dr. Barroso and accepted to his service. Diagnosis Primary Impression: Chest pain Qualified Code: R07.9 - Chest pain, unspecified type Additional Impression: Abdominal pain Qualified Code: R10.13 - Epigastric pain Admitting Information Admitting Physician Requests: Cynthia Guillory DO Mar 27, 2017 08:05
--- NOTE | 2017-03-27 08:22 | RADRPT ---
EXAM DATE/TIME: 03/27/2017 08:02 [facility] COMPARISON: No previous studies available for comparison. INDICATIONS : Chest pain MEDICAL HISTORY : Congestive heart failure. SURGICAL HISTORY : None. ENCOUNTER: Initial ACUITY: 3 days PAIN SCORE: 8/10 LOCATION: Bilateral chest FINDINGS: A single view of the chest demonstrates the lungs to be symmetrically aerated without evidence of mas s, infiltrate or effusion. The cardiomediastinal contours are unremarkable. Osseous structures are intact. CONCLUSION: Normal examination. Ion Staley MD on March 27, 2017 at 8:20 Board Certified Radiologist. This report was verified electronically.
[2017-03-27 08:44] LABS: AUTOMATED NEUTROPHIL # 4.8 TH/MM3 (1.8-7.7); BASOPHIL % 0.5 % (0.0-2.0); EOSINOPHIL % 0.5 % (0.0-4.0); HEMATOCRIT 38.3 % (39.0-51.0); HEMO FLAGS DIFF FINAL; LYMPH % 12.8 % (9.0-44.0); LYMPHOCYTE # 0.8 TH/MM3 (1.0-4.8); MEAN CELL VOLUME 76.2 FL (80.0-100.0); MEAN CORPUSCULAR HEMOGLOBIN 24.6 PG (27.0-34.0); MEAN CORPUSCULAR HGB CONC 32.2 % (32.0-36.0); MONO % 13.2 % (0.0-8.0); PLATELET COUNT 146 TH/MM3 (150-450); RED BLOOD COUNT 5.03 MIL/MM3 (4.50-5.90); RED CELL DISTRIBUTION WIDTH 14.4 % (11.6-17.2); WHITE BLOOD COUNT 6.6 TH/MM3 (4.0-11.0)
[2017-03-27 08:49] LABS: APTT (PATIENT) 29.2 SEC (24.3-30.1); PROTHROMBIN TIME - PATIENT 10.7 SEC (9.8-11.6)
[2017-03-27 09:00] LABS: ANION GAP 10 MEQ/L (5-15); AST (GOT) 29 U/L (15-37); BICARBONATE 23.1 MEQ/L (21.0-32.0); BLOOD UREA NITROGEN 23 MG/DL (7-18); CHLORIDE 102 MEQ/L (98-107); GLOMERULAR FILTRATION RATE 33 ML/MIN (>89); MAGNESIUM 1.9 MG/DL (1.5-2.5); POTASSIUM 3.8 MEQ/L (3.5-5.1); SODIUM (NA) 135 MEQ/L (136-145)
[2017-03-27 09:01] LABS: ALT (GPT) 28 U/L (12-78)
[2017-03-27 09:05] LABS: ALKALINE PHOSPHATASE 89 U/L (45-117); CREATINE KINASE 582 U/L (39-308); TOTAL BILIRUBIN ADULT 0.3 MG/DL (0.2-1.0)
[2017-03-27 09:18] LABS: CKMB 1.8 NG/ML (0.5-3.6)
--- NOTE | 2017-03-27 10:27 | RADRPT ---
EXAM DATE/TIME: 03/27/2017 10:05 [place] COMPARISON: No previous studies available for comparison. INDICATIONS : Epigastric pain for two days. ORAL CONTRAST: No oral contrast ingested. RADIATION DOSE: 9.96 CTDIvol (mGy) MEDICAL HISTORY : Congestive heart failure. SURGICAL HISTORY : None. ENCOUNTER: Initial ACUITY: 2 days PAIN SCALE: 8/10 LOCATION: epigastric abdomen TECHNIQUE: Volumetric scanning of the abdomen and pelvis was performed. Using automated exposure control and ad justment of the mA and/or kV according to patient size, radiation dose was kept as low as reasonably achievable to obtain optimal diagnostic quality images. DICOM format image data is available electro nically for review and comparison. FINDINGS: LOWER LUNGS: The visualized lower lungs are clear. LIVER: Homogeneous density without lesion. There is no dilation of the biliary tree. No calcified gallston es. SPLEEN: Normal size without lesion. PANCREAS: Within normal limits. KIDNEYS: Normal in size and shape. There is no mass, stone, or hydronephrosis. ADRENAL GLANDS: Within normal limits. VASCULAR: There is no aortic aneurysm. BOWEL/MESENTERY: The stomach, small bowel, and colon demonstrate no acute abnormality. There is no free intraperitone al air or fluid. ABDOMINAL WALL: Within normal limits. RETROPERITONEUM: There is no lymphadenopathy. BLADDER: No wall thickening or mass. The prostate is enlarged. INGUINAL: There is no lymphadenopathy or hernia. MUSCULOSKELETAL: Within normal limits for patient age. CONCLUSION: Normal examination except for prostatic enlargement. Ion Staley MD on March 27, 2017 at 10:23 Board Certified Radiologist. This report was verified electronically.
[2017-03-27] MEDS ORDERED: MORPHINE SULFATE 4 MG/ML INJ IV PUSH ONE (10:45)
[2017-03-27] MEDS ORDERED: DEXTROSE 50% IN WATER 50 ML VIAL(D50) IV PRN ×2 (11:00→12:30)
[2017-03-27] MEDS ORDERED: GLUCAGON 1 MG/ML VIAL IM/SQ PRN (11:00)
[2017-03-27] MEDS ORDERED: INSULIN ASPART SUPPLEMENTAL SCALE SQ SCH (11:00)
[2017-03-27] MEDS ORDERED: BISACODYL 10 MG SUPP RECTAL PRN (12:30)
[2017-03-27] MEDS ORDERED: NALOXONE HCL 0.4 MG/ML AMP IV PRN (12:30)
[2017-03-27] MEDS ORDERED: GLUCAGON 1 MG/ML VIAL OTHER PRN (12:30)
[2017-03-27] MEDS ORDERED: SENNOSIDES 8.6 MG TAB PO PRN (12:30)
[2017-03-27] MEDS ORDERED: SODIUM CHLORIDE 0.9% FLUSH 10 ML FLUSH IV FLUSH PRN (12:30)
[2017-03-27] MEDS ORDERED: LACTULOSE SYRUP 20 GM/30 ML CUP PO PRN (12:30)
[2017-03-27] MEDS ORDERED: MAGNESIUM HYDROXIDE SUSP 30 ML CUP PO PRN (12:30)
[2017-03-27] MEDS ORDERED: CYCLOBENZAPRINE HCL 10 MG TAB PO SCH (13:00)
--- NOTE | 2017-03-27 13:20 | EKG ---
Date Performed: 03/27/2017 Time Performed: 07:49:05 PTAGE: 56 years EKG: SINUS TACHYCARDIA WITH OCCASIONAL SUPRAVENTRICULAR PREMATURE COMPLEXES POSSIBLE LEFT ATRIAL ENLARGEMENT LEFT VENTRICULAR HYPERTROPHY AND ST-T CHANGE ABNORMAL ECG PREVIOUS TRACING : 09/22/2016 19.23 Compared to prior tracing no significant change DOCTOR: Wallace Lechuga Interpretating Date/Time 03/27/2017 13:18:35
--- NOTE | 2017-03-27 13:50 | HHI.HP ---
[facility] Marylin Gonzalez MD Admission Diagnosis Chest pain Diagnoses: Chief Complaint: abdominal pain/nausea/vomiting Travel History International Travel<30 Days: No Contact w/Intl Traveler <30 Da: No Traveled to Known Affected Are: No History of Present Illness Written by Lyndsey Arnold, acting as scribe for Dr. Barroso on 03/27/17 at 14:16. 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 The patient reports 2 days ago he developed congestion and cough with sputum production (unknown color as patient is blind). Denies fevers/chills. He then developed diffuse abdominal pain located across bilateral mid abdomen/ periumbilical yesterday and then became nauseous and vomited twice. He states with the vomiting he also developed chest pains located at the left lower lateral rib cage that has now resolved. The patient reports his last BM was 2 days ago. The patient does endorse contact with a friend who had flulike symptoms on 03/21/17. He denies any other medical complaints. Since his arrival to the ER, he has been given IV Zofran and morphine and he started feeling better. He has now ate lunch and has not yet had any further nausea or vomiting. 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 Denies any history of UT/CAD. Review of Systems Except as stated in HPI: all other systems reviewed are Neg Past Family Social History Past Medical History COPD CHF Hypertension Diabetes Dyslipidemia Persistent vitreous hemorrhages Diabetic retinopathy Blindness Liver abscess 2013 Past Surgical History Right total knee replacement Multiple eye surgeries Liver abscess with drain placement and removed Reported Medications Reported Meds & Active Scripts Active Reported Aspirin EC (Aspirin) 81 Mg Tabdr 81 Mg PO DAILY Carvedilol 3.125 Mg Tab 3.125 Mg PO BID Flexeril (Cyclobenzaprine HCl) 10 Mg Tab 10 Mg PO TID Furosemide 40 Mg Tab 40 Mg PO DAILY Levemir Inj (Insulin Detemir) 1,000 unit/ 10 ML Vial 28 Units SQ DAILY Do not mix with any other Insulin. Lisinopril 40 Mg Tab 40 Mg PO DAILY Klor-Con M20 (Potassium Chloride Microencaps) 20 Meq Tab 20 Meq PO DAILY Allergies: Coded Allergies: Neurontin (Verified Allergy, Intermediate, Itching, 03/27/17) Active Ordered Medications Current Medications Medications (Trade) Dose Ordered Sig/Anila Route Start Time Stop Time Status Last Admin (NS Flush) 2 ml UNSCH PRN IVF 03/27/17 08:00 (D50w (Vial) Inj) 25 ml UNSCH PRN IV 03/27/17 11:00 (Glucagon Inj) 1 mg UNSCH PRN IM/SQ 03/27/17 11:00 (Ecotrin Ec) 81 mg DAILY PO 03/28/17 09:00 (Coreg) 3.125 mg BID PO 03/27/17 21:00 (Flexeril) 10 mg TID PO 03/27/17 13:00 (Lasix) 40 mg DAILY PO 03/28/17 09:00 (Levemir Inj) 28 units DAILY SQ 03/28/17 09:00 (KCl) 20 meq DAILY PO 03/28/17 09:00 (Prinivil) 40 mg DAILY PO 03/28/17 09:00 (NS Flush) 2 ml UNSCH PRN IV FLUSH 03/27/17 12:30 (NS Flush) 2 ml BID IV FLUSH 03/27/17 21:00 (Zofran Inj) 4 mg Q6H PRN IVP 03/27/17 12:30 (Narcan Inj) 0.4 mg UNSCH PRN IV 03/27/17 12:30 (Brittany-Colace) 1 tab BID PO 03/27/17 21:00 (Milk Of Magnesia Liq) 30 ml Q12H PRN PO 03/27/17 12:30 (Senokot) 17.2 mg Q12H PRN PO 03/27/17 12:30 (Dulcolax Supp) 10 mg DAILY PRN RECTAL 03/27/17 12:30 (Lactulose Liq) 30 ml DAILY PRN PO 03/27/17 12:30 (D50w (Vial) Inj) 50 ml UNSCH PRN IV 03/27/17 12:30 (Glucagon Inj) 1 mg UNSCH PRN OTHER 03/27/17 12:30 Family History Family history significant for diabetes Social History Tobacco use: Denies Alcohol use: Socially Illicit drug use: Denies Physical Exam Vital Signs Vital Signs Date Time Temp Pulse Resp B/P Pulse Ox O2 Delivery O2 Flow Rate FiO2 03/27/17 11:16 85 18 127/84 100 Room Air 03/27/17 09:03 145/78 03/27/17 08:26 100 Room Air 03/27/17 08:26 100 Room Air 03/27/17 07:40 99.9 101 20 197/106 100 Room Air 03/27/17 07:27 97.8 107 21 141/88 98 Physical Exam GENERAL: Well-nourished, well-developed pleasant Blind male patient in NAD. SKIN: Warm and dry. No rash. HEAD: Normocephalic. Atraumatic. EYES: Pupils equal and round. No scleral icterus. No injection or drainage. ENT: No nasal bleeding or discharge. Mucous membranes pink and moist. NECK: Supple. Trachea midline. CARDIOVASCULAR: Regular rate and rhythm. S1, S2 noted. No murmur appreciated. RESPIRATORY: No accessory muscle use. Clear to auscultation. Breath sounds equal bilaterally. GASTROINTESTINAL: Abdomen soft, nondistended, mild diffuse TTP throughout mid abdominal/periumbilical area. Normoactive bowel sounds x4. MUSCULOSKELETAL: No obvious deformities. Extremities without clubbing, cyanosis , or edema. NEUROLOGICAL: Awake and alert. No obvious cranial nerve deficits. Motor grossly within normal limits. Normal speech. PSYCHIATRIC: Appropriate mood and affect; insight and judgment normal. Laboratory Laboratory Tests Test 03/27/17 08:15 White Blood Count 6.6 Red Blood Count 5.03 Hemoglobin 12.3 Hematocrit 38.3 Mean Corpuscular Volume 76.2 Mean Corpuscular Hemoglobin 24.6 Mean Corpuscular Hemoglobin 32.2 Concent Red Cell Distribution Width 14.4 Platelet Count 146 Mean Platelet Volume 11.2 Neutrophils (%) (Auto) 73.0 Lymphocytes (%) (Auto) 12.8 Monocytes (%) (Auto) 13.2 Eosinophils (%) (Auto) 0.5 Basophils (%) (Auto) 0.5 Neutrophils # (Auto) 4.8 Lymphocytes # (Auto) 0.8 Monocytes # (Auto) 0.9 Eosinophils # (Auto) 0.0 Basophils # (Auto) 0.0 CBC Comment DIFF FINAL Differential Comment Prothrombin Time 10.7 Prothromb Time International 1.0 Ratio Activated Partial 29.2 Thromboplast Time Sodium Level 135 Potassium Level 3.8 Chloride Level 102 Carbon Dioxide Level 23.1 Anion Gap 10 Blood Urea Nitrogen 23 Creatinine 2.46 Estimat Glomerular Filtration 33 Rate Random Glucose 113 Lactic Acid Level 1.3 Calcium Level 9.0 Magnesium Level 1.9 Total Bilirubin 0.3 Aspartate Amino Transf 29 (AST/SGOT) Alanine Aminotransferase 28 (ALT/SGPT) Alkaline Phosphatase 89 Total Creatine Kinase 582 Creatine Kinase MB 1.8 Creatine Kinase MB % 0.3 Troponin I 0.05 B-Type Natriuretic Peptide 45 Total Protein 7.7 Albumin 3.3 Lipase 80 Date/Time Procedure Status Source Growth 03/27/17 08:20 Aerobic Blood Culture Received Blood Peripheral Pending 03/27/17 08:20 Anaerobic Blood Culture Received Blood Peripheral Pending Result Diagram: 03/27/17 0815 03/27/17 0815 Imaging Last Impressions Chest X-Ray 03/27/17 0756 Signed Impressions: Service Date/Time: Monday, March 27, 2017 08:02 - CONCLUSION: Normal examination. Ion Staley MD Abdomen/Pelvis CT 03/27/17 0000 Signed Impressions: Service Date/Time: Monday, March 27, 2017 10:05 - CONCLUSION: Normal examination except for prostatic enlargement. Ion Staley MD Assessment and Plan Problem List: (1) Abdominal pain ICD Code: R10.9 Status: Acute (2) Nausea ICD Code: R11.0 Status: Acute (3) Chest pain ICD Code: R07.9 Status: Resolved (4) Cough ICD Code: R05 Status: Acute Assessment and Plan 56-year-old blind male with history of COPD, CHF, HTN, DM, HLD, and liver abscess 2013 presents with cough, abdominal pain, nausea/vomiting, and chest pains. Abdominal Pain/Nausea/Vomiting: suspect gastroenteritis. CT abd/pelvis images reviewed, no acute findings although study done without oral or IV contrast. Lipase and LFTs wnl. Afebrile, no leukocytosis, and lactic acid 1.3. S/p IV Zofran/Morphine in the ER with significant relief. -Continue supportive treatment with antiemetics and pain control prn -Caution with IVF with hx of CHF, give IVF at 42cc/hr x1L -Diet as tolerated -Last BM 2 days ago, started on brittany-colace -patient improving Cough/Congestion, suspect Viral URI: recent sick contact last week. CXR images reviewed, no acute findings. Low grade fever Tmax99.9 and tachycardic upon arrival. -supportive treatment with Robitussin prn cough -check sputum culture Atypical Chest Pain: suspect pleuritic secondary to recent coughing/vomiting -initial troponin 0.05, will continue to trend serial cardiac enzymes and EKGs -monitor on telemetry -continue aspirin, lisinopril, coreg -check lipid panel in the am POLI on CKD, stage III: Cr 2.46, previously Cr 1.94 March2016 -suspect secondary to recent vomiting -will give very gentle IVF with NS at 42ml/hr x1L -repeat BMP in the am Diabetes Mellitus: chronic -continue patient's Levemir 28u daily -monitor Accu-checks, cover with SSI Chronic Systolic CHF: no signs of fluid overload at this time. BNP 45. CXR clear. Echo showed EF 30-35% with mild-mod MR, mild-mod TR. -caution with IVF -hold patient's lasix for today All other chronic medical conditions stable, continue home medications as appropriate. DVT Prophylaxis: teds/SCDs This note was transcribed by [email or web address] [janneth Arnold]. I, Dr. Pooja Barroso personally performed the history, physical exam, and medical decision making; and confirmed the accuracy of the information in the transcribed note. Authenticated by Dr. Pooja Barroso on 03/27/17 at 1420. Discussed Condition With Patient, ER Problem Qualifiers (1) Abdominal pain: Qualified Code: R10.10 - Pain of upper abdomen (2) Chest pain: Qualified Code: R07.9 - Chest pain, unspecified type Lyndsey Arnold PA-C Mar 27, 2017 13:50 Pooja Barroso MD Mar 30, 2017 19:51
[2017-03-27] MEDS ORDERED: SODIUM CHLOR 0.9% 1000 ML INJ 1,000 ML IV SCH (16:00)
[2017-03-27 16:14] LABS: CKMB 1.1 NG/ML (0.5-3.6)
[2017-03-27] MEDS ORDERED: ACETAMINOPHEN 325 MG TAB PO PRN (16:30)
[2017-03-27] MEDS ORDERED: ACETAMINOPHEN/HYDROcodone 325 MG/5 MG TAB PO PRN (16:30)
[2017-03-27] MEDS: INSULIN ASPART SUPPLEMENTAL SCALE SQ SCH ×2 (17:55→21:07)
[2017-03-27] MEDS: SODIUM CHLORIDE 0.9% FLUSH 10 ML FLUSH IV FLUSH SCH (21:00)
[2017-03-27] MEDS ORDERED: CYCLOBENZAPRINE HCL 10 MG TAB PO PRN (21:00)
[2017-03-27] MEDS: DOCUSATE SODIUM 50 MG/SENNA 8.6 MG TAB PO SCH (21:09)
[2017-03-27] MEDS: CARVEDILOL 3.125 MG TAB PO SCH (21:10)
[2017-03-27 22:30] LABS: CKMB 1.1 NG/ML (0.5-3.6)
[2017-03-28] VITALS (10 sets, daily range): BP systolic 122–183; BP diastolic 63–87; PULSE 79–96; RESP 15–18; TEMP 98–100.4; O2SAT 98–100
[2017-03-28] MEDS: guaiFENesin/DEXTROMETHORPHAN 200 MG/20 MG/10 ML CUP PO PRN (01:36)
[2017-03-28] MEDS: ONDANSETRON HCL 4 MG/2 ML VIAL IVP PRN ×2 (01:37→10:46)
[2017-03-28] MEDS: MORPHINE SULFATE 4 MG/ML INJ IV PUSH PRN ×3 (01:38→19:32)
[2017-03-28] MEDS: INSULIN ASPART SUPPLEMENTAL SCALE SQ SCH ×4 (07:00→20:30)
--- NOTE | 2017-03-28 08:46 | HHI.PR ---
Subjective Remarks Follow-up for abdominal pain and nausea. The patient continues to complain of nausea today, no vomiting. He also continues to have lower abdominal cramping pain. He denies any problems urinating. He denies any chest pain or shortness breath. He continues to have productive cough. He continues to feel generally unwell. He did tolerate full diet last night. Zofran helps the nausea. Objective Vitals Vital Signs Date Time Temp Pulse Resp B/P Pulse Ox O2 Delivery O2 Flow Rate FiO2 03/28/17 07:41 98.2 96 15 145/87 98 03/28/17 04:49 100.4 89 183/85 98 03/28/17 04:29 87 03/28/17 02:38 79 03/28/17 01:58 84 03/28/17 00:08 98.6 86 18 132/86 100 03/27/17 20:29 98.9 85 17 152/113 99 03/27/17 17:45 80 03/27/17 14:37 99.2 81 18 151/71 98 03/27/17 11:16 85 18 127/84 100 Room Air 03/27/17 09:03 145/78 I/O 03/27/17 03/27/17 03/27/17 03/28/17 03/28/17 03/28/17 07:00 15:00 23:00 07:00 15:00 23:00 Intake Total 240 ml 570 ml Output Total 200 ml 400 ml Balance 240 ml -200 ml 170 ml Intake Oral 240 ml 150 ml IV Total 420 ml Output Urine Total 200 ml 400 ml # Voids 2 Result Diagram: 03/27/17 0815 03/27/17 0815 Imaging Last Impressions Chest X-Ray 03/27/17 0756 Signed Impressions: Service Date/Time: Monday, March 27, 2017 08:02 - CONCLUSION: Normal examination. Ion Staley MD Abdomen/Pelvis CT 03/27/17 0000 Signed Impressions: Service Date/Time: Monday, March 27, 2017 10:05 - CONCLUSION: Normal examination except for prostatic enlargement. Ion Staley MD Objective Remarks GENERAL: Well-developed well-nourished. In no acute distress. SKIN: Warm and dry. No lesions noted. HEENT: Normocephalic. Pupils equal and round. Blindness. Mucous membranes pink and moist. CARDIOVASCULAR: Regular rate and rhythm. No murmur appreciated. RESPIRATORY: No accessory muscle use. Clear to auscultation. Breath sounds equal bilaterally. GASTROINTESTINAL: Abdomen soft, nondistended. RLQ TTP, no rebound. Bowel sounds x4. MUSCULOSKELETAL: No obvious deformities. No clubbing or cyanosis. No edema. NEUROLOGICAL: Awake and alert. No focal neurological deficits. Moves upper and lower extremities spontaneously. Normal speech. PSYCHIATRIC: Appropriate mood and affect; insight and judgment normal. A/P Problem List: (1) Abdominal pain ICD Code: R10.9 Status: Acute (2) Nausea ICD Code: R11.0 Status: Acute (3) Chest pain ICD Code: R07.9 Status: Resolved (4) Cough ICD Code: R05 Status: Acute Assessment and Plan 56-year-old blind male with history of COPD, CHF, HTN, DM, HLD, and liver abscess 2013 presents with cough, abdominal pain, nausea/vomiting, and chest pains. Abdominal Pain/Nausea/Vomiting: Likely secondary to viral enteritis. Reviewed: CT abd/pelvis reviewed, no acute findings although study done without oral or IV contrast. Lipase and LFTs wnl. Afebrile, no leukocytosis, and lactic acid 1.3. -Continue supportive treatment with antiemetics and pain control prn -Caution with IVF with hx of CHF, give IVF at 42cc/hr x1L -Diet as tolerated -Last BM 2 days prior, started on david-colace -patient improving Cough/Congestion, suspect Viral URI: recent sick contact last week. CXR reviewed , no acute findings. -supportive treatment with Robitussin prn cough -sputum culture pending Atypical Chest Pain: suspect pleuritic secondary to recent coughing/vomiting. Reviewed: EKG with nonspecific lateral ST changes, no standing and change from previous. Troponins 0.05, 0.05, 0.06; flat, nonischemic. - Ruled out ACS per protocol. -monitor on telemetry -continue aspirin, lisinopril, coreg -Lipid panel pending POLI on CKD, stage III: Cr 2.46, previously Cr 1.94 March2016 -suspect secondary to recent vomiting -will give very gentle IVF with NS at 42ml/hr x1L -repeat BMP pending SIRS: Overnight the patient with Tmax 100.4 and tachycardia. Suspect source is likely viral. -Follow up blood cultures -Check UA Diabetes Mellitus: chronic -continue patient's Levemir 28u daily -monitor Accu-checks, cover with SSI Chronic Systolic CHF: no signs of fluid overload at this time. BNP 45. CXR clear. Echo showed EF 30-35% with mild-mod MR, mild-mod TR. -caution with IVF -hold patient's lasix for now All other chronic medical conditions stable, continue home medications as appropriate. DVT Prophylaxis: teds/SCDs Discharge Planning Follow-up blood cultures and monitor clinically. Possible discharge tomorrow if patient continues to improve and cultures remain negative. Problem Qualifiers (1) Abdominal pain: Qualified Code: R10.10 - Pain of upper abdomen (2) Chest pain: Qualified Code: R07.9 - Chest pain, unspecified type Reji Jaramlilo Mar 28, 2017 08:46
[2017-03-28] MEDS ORDERED: FUROSEMIDE 40 MG TAB PO SCH (09:00)
[2017-03-28] MEDS: SODIUM CHLORIDE 0.9% FLUSH 10 ML FLUSH IV FLUSH SCH ×2 (09:00→20:12)
[2017-03-28 09:05] LABS: BICARBONATE 25.5 MEQ/L (21.0-32.0); HDL CHOLESTEROL 39.2 MG/DL (40.0-60.0)
[2017-03-28] MEDS: LISINOPRIL 20 MG TAB PO SCH (09:16)
[2017-03-28] MEDS: DOCUSATE SODIUM 50 MG/SENNA 8.6 MG TAB PO SCH ×2 (09:16→20:12)
[2017-03-28] MEDS: CARVEDILOL 3.125 MG TAB PO SCH ×2 (09:16→20:12)
[2017-03-28] MEDS: POTASSIUM CHLORIDE 20 MEQ CONTROLLED RELEASE TAB PO SCH (09:17)
[2017-03-28] MEDS: ASPIRIN EC 81 MG TABEC PO SCH (09:17)
[2017-03-28] MEDS: INSULIN DETEMIR 100 UNITS/ML VIAL SQ SCH (09:27)
[2017-03-28 09:32] LABS: BACTERIA, URINE RARE /hpf; BLOOD, URINE SMALL (NEG); COMMENT (UR) CULT NOT INDICATED; CULTURE IF INDICATED CULT NOT INDICATED; GLUCOSE,URINE TRACE mg/dL (NEG); KETONE, URINE NEG (NEG); MUCUS URINE FEW /lpf (OCC); NITRITE,URINE NEG (NEG); SQUAMOUS EPITHELIAL CELL URINE <1 /hpf (0-5); URINE COLOR YELLOW (YELLW/STRAW)
--- NOTE | 2017-03-28 13:33 | EKG ---
Date Performed: 03/27/2017 Time Performed: 20:55:47 PTAGE: 56 years EKG: Sinus rhythm NONSPECIFIC ST & T-WAVE ABNORMALITY ABNORMAL ECG Compared to prior tracing no significant change PREVIOUS TRACING : 03/27/2017 16.57 DOCTOR: Leonardo Gilmore Interpretating Date/Time 03/28/2017 13:29:00
--- NOTE | 2017-03-28 13:49 | EKG ---
Date Performed: 03/27/2017 Time Performed: 16:57:07 PTAGE: 56 years EKG: Sinus rhythm NONSPECIFIC ST & T-WAVE ABNORMALITY ABNORMAL ECG Compared to PREVIOUS TRACING , the rate has slowed otherwise largely unchanged. PREVIOUS TRACIN05/2017 07.49 DOCTOR: Leonardo Gilmore Interpretating Date/Time 03/28/2017 13:48:12
[2017-03-29] VITALS (8 sets, daily range): BP systolic 143–190; BP diastolic 70–93; PULSE 68–82; RESP 16–18; TEMP 97.8–99.6; O2SAT 99–100
[2017-03-29] MEDS: INSULIN ASPART SUPPLEMENTAL SCALE SQ SCH ×4 (06:12→20:40)
[2017-03-29] MEDS: POTASSIUM CHLORIDE 20 MEQ CONTROLLED RELEASE TAB PO SCH (08:24)
[2017-03-29] MEDS: ASPIRIN EC 81 MG TABEC PO SCH (08:25)
[2017-03-29] MEDS: SODIUM CHLORIDE 0.9% FLUSH 10 ML FLUSH IV FLUSH SCH ×2 (08:25→20:35)
[2017-03-29] MEDS: CARVEDILOL 3.125 MG TAB PO SCH ×2 (08:25→20:36)
[2017-03-29] MEDS: DOCUSATE SODIUM 50 MG/SENNA 8.6 MG TAB PO SCH ×2 (08:25→20:36)
[2017-03-29] MEDS: LISINOPRIL 20 MG TAB PO SCH (08:25)
[2017-03-29] MEDS: INSULIN DETEMIR 100 UNITS/ML VIAL SQ SCH (08:26)
--- NOTE | 2017-03-29 10:09 | EKG ---
Date Performed: 03/28/2017 Time Performed: 18:24:59 PTAGE: 56 years EKG: Sinus rhythm NONSPECIFIC T-WAVE ABNORMALITY ABNORMAL ECG PREVIOUS TRACING : 03/27/[address] abnormalities have improved from the old tracing. DOCTOR: Demian Meek Interpretating Date/Time 03/29/2017 10:07:23
[2017-03-29 10:13] LABS: BASOPHIL % 0.4 % (0.0-2.0); EOSINOPHIL # 0.1 TH/MM3 (0-0.4); EOSINOPHIL % 1.4 % (0.0-4.0); HEMATOCRIT 34.6 % (39.0-51.0); HEMO FLAGS DIFF FINAL; LYMPH % 35.9 % (9.0-44.0); LYMPHOCYTE # 1.5 TH/MM3 (1.0-4.8); MEAN CELL VOLUME 76.2 FL (80.0-100.0); MEAN CORPUSCULAR HEMOGLOBIN 24.1 PG (27.0-34.0); MEAN CORPUSCULAR HGB CONC 31.7 % (32.0-36.0); MONO % 13.5 % (0.0-8.0); NEUT % 48.8 % (16.0-70.0); PLATELET COUNT 119 TH/MM3 (150-450); RED BLOOD COUNT 4.54 MIL/MM3 (4.50-5.90); WHITE BLOOD COUNT 4.1 TH/MM3 (4.0-11.0)
[2017-03-29 10:20] LABS: BICARBONATE 25.6 MEQ/L (21.0-32.0); POTASSIUM 4.2 MEQ/L (3.5-5.1)
[2017-03-29] MEDS ORDERED: FAMOTIDINE 20 MG TAB PO SCH (11:00)
--- NOTE | 2017-03-29 11:02 | HHI.PR ---
Subjective Remarks Follow-up for abdominal pain. The patient continues to complain of some epigastric discomfort. He denies any specific fever or chills, but states he has felt hot. He has been tolerating diet, and feels like he can't get enough food. He denies any vomiting or diarrhea. He does have a history of kidney disease and his band shover is Dr. Granados. Objective Vitals Vital Signs Date Time Temp Pulse Resp B/P Pulse Ox O2 Delivery O2 Flow Rate FiO2 03/29/17 07:12 99.6 76 16 145/82 100 03/29/17 05:00 99.5 80 18 151/74 99 03/29/17 00:16 98.9 82 17 145/70 100 03/28/17 20:15 79 03/28/17 19:45 99.6 84 17 137/77 98 03/28/17 15:48 98.2 86 15 122/63 98 03/28/17 11:31 98.0 84 16 133/70 I/O 03/28/17 03/28/17 03/28/17 03/29/17 03/29/17 03/29/17 07:00 15:00 23:00 07:00 15:00 23:00 Intake Total 570 ml Output Total 200 ml 400 ml Balance -200 ml 170 ml Intake Oral 150 ml IV Total 420 ml Output Urine Total 200 ml 400 ml # Voids 2 Result Diagram: 03/29/17 0929 03/29/17 0929 Imaging Last Impressions Chest X-Ray 03/27/17 0756 Signed Impressions: Service Date/Time: Monday, March 27, 2017 08:02 - CONCLUSION: Normal examination. Ion Staley MD Abdomen/Pelvis CT 03/27/17 0000 Signed Impressions: Service Date/Time: Monday, March 27, 2017 10:05 - CONCLUSION: Normal examination except for prostatic enlargement. Ion Staley MD Objective Remarks GENERAL: Well-developed well-nourished. In no acute distress. SKIN: Warm and dry. No lesions noted. HEENT: Normocephalic. Pupils equal and round. Blindness. Mucous membranes pink and moist. CARDIOVASCULAR: Regular rate and rhythm. No murmur appreciated. RESPIRATORY: No accessory muscle use. Clear to auscultation. Breath sounds equal bilaterally. GASTROINTESTINAL: Abdomen soft, nondistended. Mild epigastric TTP. Bowel sounds x4. MUSCULOSKELETAL: No obvious deformities. No clubbing or cyanosis. No edema. NEUROLOGICAL: Awake and alert. No focal neurological deficits. Moves upper and lower extremities spontaneously. Normal speech. PSYCHIATRIC: Appropriate mood and affect; insight and judgment normal. A/P Problem List: (1) Abdominal pain ICD Code: R10.9 Status: Acute (2) Nausea ICD Code: R11.0 Status: Acute (3) Chest pain ICD Code: R07.9 Status: Resolved (4) Cough ICD Code: R05 Status: Acute Assessment and Plan 56-year-old blind male with history of COPD, CHF, HTN, DM, HLD, and liver abscess 2013 presents with cough, abdominal pain, nausea/vomiting, and chest pains. Abdominal Pain/Nausea/Vomiting: Likely secondary to viral enteritis, improving. Reviewed: CT abd/pelvis reviewed, no acute findings although study done without oral or IV contrast. Lipase and LFTs wnl. Afebrile, no leukocytosis, and lactic acid 1.3. -Continue supportive treatment with antiemetics and pain control prn -Caution with IVF with hx of CHF, given 1L IVF -Diet as tolerated -Last BM 2 days prior, started on david-colace -Start Pepcid Cough/Congestion, suspect Viral URI: recent sick contact last week. CXR reviewed , no acute findings. -supportive treatment with Robitussin prn cough -sputum culture pending Atypical Chest Pain: suspect pleuritic secondary to recent coughing/vomiting vs epigastric from enteritis. Reviewed: EKG with nonspecific lateral ST changes, no standing and change from previous. Troponins 0.05, 0.05, 0.06; flat, nonischemic. Lipid profile well controlled. -Ruled out ACS per protocol. -monitor on telemetry -continue aspirin, lisinopril, coreg POLI on CKD, stage III: Cr 2.46, previously Cr 1.94 March2016. Creatinine continues to increase, now to 2.69. -S/P gentle IVF, resume -Hold Lasix and lisinopril. -Check urine sodium and creatinine -Check renal ultrasound -Consult nephrology SIRS: Tmax 100.4 and tachycardia overnight on 03/28. Still with some low-grade fevers. No leukocytosis. UA shows no infection. Suspect source is likely viral. -Follow up blood cultures Diabetes Mellitus: chronic -continue patient's Levemir 28u daily -monitor Accu-checks, cover with SSI Chronic Systolic CHF: no signs of fluid overload at this time. BNP 45. CXR clear. Echo showed EF 30-35% with mild-mod MR, mild-mod TR. -caution with IVF -hold patient's lasix for now All other chronic medical conditions stable, continue home medications as appropriate. DVT Prophylaxis: teds/SCDs Discharge Planning Follow blood cultures. Follow nephrology recommendations. Consider inpatient admission with worsening kidney function. Problem Qualifiers (1) Abdominal pain: Qualified Code: R10.10 - Pain of upper abdomen (2) Chest pain: Qualified Code: R07.9 - Chest pain, unspecified type Reji Jaramillo Mar 29, 2017 11:02
[2017-03-29] MEDS: MORPHINE SULFATE 4 MG/ML INJ IV PUSH PRN ×2 (13:25→20:46)
[2017-03-29] MEDS ORDERED: SODIUM CHLOR 0.9% 1000 ML INJ 1,000 ML IV SCH (15:00)
--- NOTE | 2017-03-29 17:15 | PD.CONS ---
HPI Service Nephrology Consult Requested By Reason for Consult POLI on CKD Primary Care Physician Marylin Gonzalez MD History of Present Illness This is a 56 y/o male patient who was admitted on 03/27 for complaints of cough with chest pain. He did later endorse abdominal pain and back pain. He vomited a few times at home that may have been the result of a heavy cough/gag reflex. PMH of COPD, HTN, CHF, DM II, diabetic retinopathy and he is mostly blind. He also has a hx of CKD. Looking through his records, we follow him outpatient and at the end of this past September, his creatinine was 1.64, GFR 53, consistent with CKD 3. On admission his creatinine was 2.46, that increased to 2.54 and is 2.69 today. We were consulted for management. He has been on IVF at 42cc/hr since arrival. His lasix and lisinopril have been held beginning today. His UA has protein, RBC, and trace blood. His CK was elevated at 582 that has improved to 231 as of today. Potassium is in normal range. His blood pressure was elevated at 200 systolic two days ago and then dropped to 120s shortly after. He is awake, alert, not in distress, and is a full code. (Britney Perry) Review of Systems Constitutional: COMPLAINS OF: Fatigue, DENIES: Fever Respiratory: COMPLAINS OF: Cough, DENIES: Shortness of breath Cardiovascular: DENIES: Chest pain, Dyspnea on Exertion, Lower Extremity Edema , Orthopnea Gastrointestinal: DENIES: Abdominal pain (Britney Perry) Past Family Social History Allergies: Coded Allergies: Neurontin (Verified Allergy, Intermediate, Itching, 03/27/17) Past Medical History CKD 3 COPD CHF Hypertension Diabetes Dyslipidemia Persistent vitreous hemorrhages Diabetic retinopathy and Blindness Liver abscess 2013 Past Surgical History Right total knee replacement Multiple eye surgeries Liver abscess with drain placement and removed Reported Medications Aspirin EC (Aspirin) 81 Mg Tabdr 81 Mg PO DAILY Carvedilol 3.125 Mg Tab 3.125 Mg PO BID Flexeril (Cyclobenzaprine HCl) 10 Mg Tab 10 Mg PO TID Furosemide 40 Mg Tab 40 Mg PO DAILY Levemir Inj (Insulin Detemir) 1,000 unit/ 10 ML Vial 28 Units SQ DAILY Do not mix with any other Insulin. Lisinopril 40 Mg Tab 40 Mg PO DAILY [place]ah-Con M20 (Potassium Chloride Microencaps) 20 Meq Tab 20 Meq PO DAILY Active Ordered Medications Current Medications Medications (Trade) Dose Ordered Sig/Anila Route Start Time Stop Time Status Last Admin (NS Flush) 2 ml UNSCH PRN IVF 03/27/17 08:00 (Ecotrin Ec) 81 mg DAILY PO 03/28/17 09:00 03/29/17 08:25 (Coreg) 3.125 mg BID PO 03/27/17 21:00 03/29/17 08:25 (Lasix) 40 mg DAILY PO 03/28/17 09:00 Hold (Levemir Inj) 28 units DAILY SQ 03/28/17 09:00 03/29/17 08:26 (KCl) 20 meq DAILY PO 03/28/17 09:00 Hold 03/29/17 08:24 (Prinivil) 40 mg DAILY PO 03/28/17 09:00 Hold 03/29/17 08:25 (NS Flush) 2 ml UNSCH PRN IV FLUSH 03/27/17 12:30 03/28/17 19:35 (NS Flush) 2 ml BID IV FLUSH 03/27/17 21:00 03/29/17 08:25 (Zofran Inj) 4 mg Q6H PRN IVP 03/27/17 12:30 03/28/17 10:46 (Narcan Inj) 0.4 mg UNSCH PRN IV 03/27/17 12:30 (Brittany-Colace) 1 tab BID PO 03/27/17 21:00 03/29/17 08:25 (Milk Of Magnesia Liq) 30 ml Q12H PRN PO 03/27/17 12:30 (Senokot) 17.2 mg Q12H PRN PO 03/27/17 12:30 (Dulcolax Supp) 10 mg DAILY PRN RECTAL 03/27/17 12:30 (Lactulose Liq) 30 ml DAILY PRN PO 03/27/17 12:30 (D50w (Vial) Inj) 50 ml UNSCH PRN IV 03/27/17 12:30 (Glucagon Inj) 1 mg UNSCH PRN OTHER 03/27/17 12:30 (Flexeril) 10 mg Q8H PRN PO 03/27/17 21:00 (Robitussin Dm 200-20 Mg/10 ml Liq) 10 ml Q4H PRN PO 03/27/17 16:00 03/28/17 01:36 (Tylenol) 650 mg Q6H PRN PO 03/27/17 16:30 03/27/17 16:35 (Morphine Inj) 1 mg Q3H PRN IV PUSH 03/28/17 17:00 03/29/17 13:25 Famotidine 10 mg 10 mg BID PO 03/29/17 21:00 (NS 1000 ml Inj) 1,000 ml @ 42 mls/hr [id number] IV 03/29/17 15:00 03/29/17 15:16 Family History no hx of renal disorders Social History , lives alone 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 legally 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 non smoker no ETOH full code (Britney Perry) Physical Exam Vital Signs Vital Signs Date Time Temp Pulse Resp B/P Pulse Ox O2 Delivery O2 Flow Rate FiO2 03/29/17 15:25 97.8 68 18 143/79 99 03/29/17 13:30 20 03/29/17 11:13 98.2 68 16 153/70 99 03/29/17 07:12 99.6 76 16 145/82 100 03/29/17 05:00 99.5 80 18 151/74 99 03/29/17 00:16 98.9 82 17 145/70 100 03/28/17 20:15 79 03/28/17 19:45 99.6 84 17 137/77 98 Physical Exam Elderly AAM lying in bed awake/alert, no neuro deficit S1/S2, RRR no murmurs or ectopy Lungs clear in all alcazar abd: soft, non tender, normal bowel sounds ext: no edema skin: intact Laboratory Laboratory Tests Test 03/29/17 09:29 White Blood Count 4.1 Red Blood Count 4.54 Hemoglobin 10.9 Hematocrit 34.6 Mean Corpuscular Volume 76.2 Mean Corpuscular Hemoglobin 24.1 Mean Corpuscular Hemoglobin 31.7 Concent Red Cell Distribution Width 15.0 Platelet Count 119 Mean Platelet Volume 10.5 Neutrophils (%) (Auto) 48.8 Lymphocytes (%) (Auto) 35.9 Monocytes (%) (Auto) 13.5 Eosinophils (%) (Auto) 1.4 Basophils (%) (Auto) 0.4 Neutrophils # (Auto) 2.0 Lymphocytes # (Auto) 1.5 Monocytes # (Auto) 0.5 Eosinophils # (Auto) 0.1 Basophils # (Auto) 0.0 CBC Comment DIFF FINAL Differential Comment Sodium Level 137 Potassium Level 4.2 Chloride Level 106 Carbon Dioxide Level 25.6 Anion Gap 5 Blood Urea Nitrogen 32 Creatinine 2.69 Estimat Glomerular Filtration 30 Rate Random Glucose 133 Calcium Level 8.2 Total Creatine Kinase 231 Date/Time Procedure Status Source Growth 03/27/17 16:33 Cancelled Sputum Expectorated Sputum 03/27/17 08:20 Aerobic Blood Culture - Preliminary Resulted Blood Peripheral NO GROWTH IN 2 DAYS 03/27/17 08:20 Anaerobic Blood Culture - Preliminary Resulted Blood Peripheral NO GROWTH IN 2 DAYS (Britney Perry) Result Diagram: 03/29/17 0929 03/29/17 0929 Imaging Last 72 hours Impressions Chest X-Ray 03/27/17 0756 Signed Impressions: Service Date/Time: Monday, March 27, 2017 08:02 - CONCLUSION: Normal examination. Ion Staley MD Abdomen/Pelvis CT 03/27/17 0000 Signed Impressions: Service Date/Time: Monday, March 27, 2017 10:05 - CONCLUSION: Normal examination except for prostatic enlargement. Ion Staley MD (Britney Perry) Assessment and Plan Problem List: (1) ARF (acute renal failure) Plan: In a patient with baseline CKD 3, creatinine 1.64/GFR 53 in September 2016 , suspected underlying diabetic nephropathy CT negative for obstruction renal function has not improved with IVF he had a relative drop in blood pressure which may have lead to renal hypoperfusion, may have progressed to ATN CPK was elevated on arrival but not at levels typical with rhabdomyolysis at this time I agree with holding lasix and lisinopril he is non oliguric, I have asked the nurse to obtain post void bladder scan to assess for retention, he has a hx of untreated BPH repeat renal panel in am avoid nephrotoxic medications quantify proteinuria his EF was 30% in 2013, check echo to evaluate LVEF; due to this I will stop the IVF currently infusing (2) Hypertension Plan: continue coreg, CHANTAL has been held due to POLI (3) Diabetes mellitus Plan: continue insulin therapy, goal 14-180 mg/dL glucose level (Britney Perry) Assessment and Plan patient was seen and examined. Agree with above assessment and plan. Clinically does not appear volume overloaded. Monitor renal function, continue supportive care. (Rohit Granados MD) Britney Perry Mar 29, 2017 17:15 Rohit Granados MD Mar 30, 2017 16:49
[2017-03-29] MEDS: FAMOTIDINE 20 MG TAB PO SCH (20:37)
[2017-03-29] MEDS: guaiFENesin/DEXTROMETHORPHAN 200 MG/20 MG/10 ML CUP PO PRN (22:28)
[2017-03-30] VITALS (9 sets, daily range): BP systolic 153–194; BP diastolic 76–99; PULSE 72–90; RESP 16–20; TEMP 97.1–98.6; O2SAT 95–100
[2017-03-30] MEDS: MORPHINE SULFATE 4 MG/ML INJ IV PUSH PRN ×3 (01:30→21:00)
[2017-03-30] MEDS ORDERED: NIFEdipine 30 MG SUSTAINED RELEASE TAB PO ONE (03:30)
[2017-03-30] MEDS: guaiFENesin/DEXTROMETHORPHAN 200 MG/20 MG/10 ML CUP PO PRN ×2 (05:56→23:28)
[2017-03-30] MEDS: INSULIN ASPART SUPPLEMENTAL SCALE SQ SCH ×4 (06:06→21:15)
[2017-03-30 07:30] LABS: BICARBONATE 17.5 MEQ/L (21.0-32.0); POTASSIUM 4.9 MEQ/L (3.5-5.1)
[2017-03-30] MEDS: CARVEDILOL 3.125 MG TAB PO SCH ×2 (07:59→21:10)
[2017-03-30] MEDS: DOCUSATE SODIUM 50 MG/SENNA 8.6 MG TAB PO SCH ×2 (07:59→21:00)
[2017-03-30] MEDS: ASPIRIN EC 81 MG TABEC PO SCH (07:59)
[2017-03-30] MEDS: FAMOTIDINE 20 MG TAB PO SCH ×2 (07:59→21:00)
[2017-03-30] MEDS: SODIUM CHLORIDE 0.9% FLUSH 10 ML FLUSH IV FLUSH SCH ×2 (07:59→21:00)
[2017-03-30] MEDS: INSULIN DETEMIR 100 UNITS/ML VIAL SQ SCH (08:00)
[2017-03-30] MEDS ORDERED: NIFEdipine 30 MG SUSTAINED RELEASE TAB PO SCH (09:00)
--- NOTE | 2017-03-30 11:18 | HHI.NPPN ---
Subjective Renal Failure: Chronic, Acute, Stage III Interval History He is sitting up in chair, not in distress. Denies further chest pain. Renal function has improved. (Britney Perry) Review of Systems Respiratory Lungs: SOB, Cough (Britney Perry) Cardiovascular Cardiac: Chest Pain Cardiac Remarks mostly resolved (Britney Perry) Objective Data Data 03/29/17 03/30/17 19:00 07:00 Intake Total 1080 ml 360 ml Output Total 700 ml 501 ml Balance 380 ml -141 ml Intake Oral 1080 ml 360 ml Output Urine Total 700 ml 500 ml Stool Total 1 ml # Bowel Movements 1 Vital Signs Date Time Temp Pulse Resp B/P Pulse Ox O2 Delivery O2 Flow Rate FiO2 03/30/17 08:00 97.1 74 20 194/99 100 03/30/17 06:08 16 03/30/17 03:06 98.2 72 16 192/96 100 03/30/17 02:11 98.0 77 18 165/78 97 03/29/17 21:50 170/90 03/29/17 20:00 70 03/29/17 19:36 98.1 69 17 190/93 03/29/17 15:25 97.8 68 18 143/79 99 (Britney Perry) -: 03/29/17 0929 03/30/17 0557 Imaging Last Impressions Chest X-Ray 03/27/17 0756 Signed Impressions: Service Date/Time: Monday, March 27, 2017 08:02 - CONCLUSION: Normal examination. Ion Staley MD Abdomen/Pelvis CT 03/27/17 0000 Signed Impressions: Service Date/Time: Monday, March 27, 2017 10:05 - CONCLUSION: Normal examination except for prostatic enlargement. Ion Staley MD (Britney Perry) Physical Exam General Appearance: Well Developed, Comfortable (Britney Perry) Eyes Eye Remarks blind at baseline (Britney Perry) Throat Throat Exam: Oral Mucosa [place] & Moist (Britney Perry) Neck Neck Exam: Neck Supple (Britney Perry) Pulmonary Resp Exam: Clear Bilaterally, Breath Sounds Equal (Britney Perry) Cardiology CV Exam: Regular, Normal Sinus Rhythm (Britney Perry) Gastrointestinal/Abdomen GI Exam: Soft, Non-Tender, Bowel Sounds Present (Britney Perry) Musculoskeletal MS Exam: Joints Intact, Normal Gait, Normal Tone, Good Strength (Britney Perry) Integumentary Skin Exam: Clear, Warm, Dry, Intact (Britney Perry) Extremeties Extremities Exam: No Edema, Pedal Pulses Palpable (Britney Perry) Neurologic Neuro Exam: Alert, Awake, Oriented, Speech Clear, Moving All Extremities ( Britney Perry) Psychiatric Psych Exam: Appropriate Responses (Britney Perry) Assessment/Plan Discussed Condition With: Patient Assessment Summary: POLI/Acute Renal Failure, Proteinuria, CHF, Hypertension, Diabetes Mellitus Problem List: (1) ARF (acute renal failure) Plan: In a patient with baseline CKD 3, creatinine 1.64/GFR 53 in September 2016 , suspected underlying diabetic nephropathy POLI from suspected renal hypoperfusion, may have progressed to ATN renal function has improved he is non oliguric, post void bladder scan not indicating retention, he has a hx of untreated BPH start Flomax daily to continue after discharge avoid nephrotoxic medications 2D echo ordered to evaluate LVEF he is not on IVF he can likely be discharged today after Echo, we will follow in CKD clinic resume CHNATAL tomorrow resume Lasix on tuesday (2) Hypertension Plan: continue coreg, given nifedipine CHANTAL has been held due to POLI (3) Diabetes mellitus Plan: blood sugar is acceptable, continue insulin therapy with a goal 14-180 mg /dL glucose level (Britney Perry) Plan patient was seen and examined. Renal function has improved. He can be discharged from renal standpoint. (Rohit Granados MD) Britney Perry Mar 30, 2017 11:18 Rohit Granados MD Mar 30, 2017 16:55
[2017-03-30] MEDS ORDERED: hydrALAZINE HCL 50 MG TAB PO ONE (11:30)
[2017-03-30] MEDS: TAMSULOSIN HCL 0.4 MG CAP PO SCH (11:30)
--- NOTE | 2017-03-30 11:52 | HHI.PR ---
Subjective Remarks Follow up for gastroenteritis, POLI on CKD. The patient reports feeling better today. He is tolerating oral intake. Denies any further abdominal pain, nausea, or vomiting. Denies fevers but reports constant chills because he is cold in the hospital. He wants to go home today. Objective Vitals Vital Signs Date Time Temp Pulse Resp B/P Pulse Ox O2 Delivery O2 Flow Rate FiO2 03/30/17 08:00 97.1 74 20 194/99 100 03/30/17 06:08 16 03/30/17 03:06 98.2 72 16 192/96 100 03/30/17 02:11 98.0 77 18 165/78 97 03/29/17 21:50 170/90 03/29/17 20:00 70 03/29/17 19:36 98.1 69 17 190/93 03/29/17 15:25 97.8 68 18 143/79 99 I/O 03/29/17 03/29/17 03/29/17 03/30/17 03/30/17 03/30/17 07:00 15:00 23:00 07:00 15:00 23:00 Intake Total 1080 ml 360 ml Output Total 700 ml 501 ml Balance 380 ml -141 ml Intake Oral 1080 ml 360 ml Output Urine Total 700 ml 500 ml Stool Total 1 ml # Bowel Movements 1 Result Diagram: 03/29/17 0929 03/30/17 0557 Imaging Last Impressions Chest X-Ray 03/27/17 0756 Signed Impressions: Service Date/Time: Monday, March 27, 2017 08:02 - CONCLUSION: Normal examination. Ion Staley MD Abdomen/Pelvis CT 03/27/17 0000 Signed Impressions: Service Date/Time: Monday, March 27, 2017 10:05 - CONCLUSION: Normal examination except for prostatic enlargement. Ion Staley MD Objective Remarks GENERAL: Well-nourished, well-developed pleasant blind AA male patient in [facility]. SKIN: Warm and dry. No rash. HEENT: Normocephalic. Atraumatic. Mucous membranes pink and moist. NECK: Supple. Trachea midline. CARDIOVASCULAR: Regular rate and rhythm. S1, S2 noted. No murmur appreciated. RESPIRATORY: No accessory muscle use. Clear to auscultation. Breath sounds equal bilaterally. GASTROINTESTINAL: Abdomen soft, non-tender, nondistended. Normoactive bowel sounds x4. MUSCULOSKELETAL: No obvious deformities. Extremities without clubbing, cyanosis , or edema. NEUROLOGICAL: Awake and alert. No obvious cranial nerve deficits. Motor grossly within normal limits. Normal speech. PSYCHIATRIC: Appropriate mood and affect; insight and judgment normal. Medications and IVs Current Medications Medications (Trade) Dose Ordered Sig/Anila Route Start Time Stop Time Status Last Admin (NS Flush) 2 ml UNSCH PRN IVF 03/27/17 08:00 (Ecotrin Ec) 81 mg DAILY PO 03/28/17 09:00 03/30/17 07:59 (Coreg) 3.125 mg BID PO 03/27/17 21:00 03/30/17 07:59 (Lasix) 40 mg DAILY PO 03/28/17 09:00 Hold (Levemir Inj) 28 units DAILY SQ 03/28/17 09:00 03/30/17 08:00 (KCl) 20 meq DAILY PO 03/28/17 09:00 Hold 03/29/17 08:24 (Prinivil) 40 mg DAILY PO 03/28/17 09:00 Hold 03/29/17 08:25 (NS Flush) 2 ml UNSCH PRN IV FLUSH 03/27/17 12:30 03/28/17 19:35 (NS Flush) 2 ml BID IV FLUSH 03/27/17 21:00 03/30/17 07:59 (Zofran Inj) 4 mg Q6H PRN IVP 03/27/17 12:30 03/28/17 10:46 (Narcan Inj) 0.4 mg UNSCH PRN IV 03/27/17 12:30 (Brittany-Colace) 1 tab BID PO 03/27/17 21:00 03/30/17 07:59 (Milk Of Magnesia Liq) 30 ml Q12H PRN PO 03/27/17 12:30 (Senokot) 17.2 mg Q12H PRN PO 03/27/17 12:30 (Dulcolax Supp) 10 mg DAILY PRN RECTAL 03/27/17 12:30 (Lactulose Liq) 30 ml DAILY PRN PO 03/27/17 12:30 (D50w (Vial) Inj) 50 ml UNSCH PRN IV 03/27/17 12:30 (Glucagon Inj) 1 mg UNSCH PRN OTHER 03/27/17 12:30 (Flexeril) 10 mg Q8H PRN PO 03/27/17 21:00 (Robitussin Dm 200-20 Mg/10 ml Liq) 10 ml Q4H PRN PO 03/27/17 16:00 03/30/17 05:56 (Tylenol) 650 mg Q6H PRN PO 03/27/17 16:30 03/27/17 16:35 (Morphine Inj) 1 mg Q3H PRN IV PUSH 03/28/17 17:00 03/30/17 06:03 (Pepcid) 10 mg BID PO 03/29/17 21:00 03/30/17 07:59 (Flomax) 0.4 mg DAILY PO 03/30/17 11:30 A/P Problem List: (1) Abdominal pain ICD Code: R10.9 Status: Acute (2) Nausea ICD Code: R11.0 Status: Acute (3) Chest pain ICD Code: R07.9 Status: Resolved (4) Cough ICD Code: R05 Status: Acute Assessment and Plan 56-year-old blind male with history of COPD, CHF, HTN, DM, HLD, and liver abscess 2013 presents with cough, abdominal pain, nausea/vomiting, and chest pains. Abdominal Pain/Nausea/Vomiting: Likely secondary to viral enteritis, improving. Reviewed: CT abd/pelvis reviewed, no acute findings although study done without oral or IV contrast. Lipase and LFTs wnl. Afebrile, no leukocytosis, and lactic acid 1.3. -Continue supportive treatment with antiemetics and pain control prn -Caution with IVF with hx of CHF, given 1L IVF -Diet as tolerated -Likely component of constipation no BM x3days, relieved with 1 large BM yesterday 03/29 -Started Pepcid -symptoms mostly resolved, patient tolerating oral intake Cough/Congestion, suspect Viral URI: recent sick contact last week. CXR reviewed , no acute findings. -supportive treatment with Robitussin prn cough -sputum culture unremarkable Atypical Chest Pain: suspect pleuritic secondary to recent coughing/vomiting vs epigastric from enteritis. Reviewed: EKG with nonspecific lateral ST changes, no standing and change from previous. Troponins 0.05, 0.05, 0.06; flat, nonischemic. Lipid profile well controlled. -Ruled out ACS per protocol. -monitor on telemetry -continue aspirin, lisinopril, coreg -chest pain resolved POLI on CKD, stage III: Cr 2.46, previously Cr 1.94 March2016. Creatinine continues to increase, now to 2.69. -S/P gentle IVF, resume -Held Lasix and lisinopril. -Ur Na 40 and Cr 93. -CT abd negative for obstruction -Consult nephrology, suspect hypoperfusion with drop in BP possibly progressed to ATN -BMP improved today with Cr 2.19 -post void bladder scan does not indicate retention, hx of untreated BPH, started on Flomax -nephrology ordered echo to evaluate LVEF -per nephro, patient can be discharged after echo; restart lisinopril tomorrow 03/31 and restart lasix on Sunday 04/01 SIRS: Tmax 100.4 and tachycardia overnight on 03/28. Still with some low-grade fevers. No leukocytosis. UA shows no infection. Suspect source is likely viral. -blood cultures with no growth x3days -no further fevers Diabetes Mellitus: chronic -continue patient's Levemir 28u daily -monitor Accu-checks, cover with SSI Chronic Systolic CHF: no signs of fluid overload at this time. BNP 45. CXR clear. Echo showed EF 30-35% with mild-mod MR, mild-mod TR. -caution with IVF -hold patient's lasix for now -echo pending Hypertension: BP elevated, likely secondary to holding patient's lisinopril and lasix -will start on hydralazine for now while home meds on hold -plan to restart lisinopril tomorrow and lasix in 2 days All other chronic medical conditions stable, continue home medications as appropriate. DVT Prophylaxis: teds/SCDs Discharge Planning 1140hrs: Likely discharge later today after echocardiogram resulted. Problem Qualifiers (1) Abdominal pain: Qualified Code: R10.10 - Pain of upper abdomen (2) Chest pain: Qualified Code: R07.9 - Chest pain, unspecified type Lyndsey Arnold PA-C Mar 30, 2017 11:52 am
[2017-03-30] MEDS ORDERED: hydrALAZINE HCL 25 MG TAB PO PRN (18:45)
[2017-03-31 04:00] VITALS: BP 142/88; PULSE 81; RESP 18; TEMP 97.8; O2SAT 98
[2017-03-31] MEDS: guaiFENesin/DEXTROMETHORPHAN 200 MG/20 MG/10 ML CUP PO PRN (05:54)
[2017-03-31] MEDS: INSULIN ASPART SUPPLEMENTAL SCALE SQ SCH ×2 (06:14→11:41)
[2017-03-31] MEDS: ASPIRIN EC 81 MG TABEC PO SCH (08:10)
[2017-03-31] MEDS: MORPHINE SULFATE 4 MG/ML INJ IV PUSH PRN ×2 (08:10→11:31)
[2017-03-31] MEDS: TAMSULOSIN HCL 0.4 MG CAP PO SCH (08:10)
[2017-03-31] MEDS: CARVEDILOL 3.125 MG TAB PO SCH (08:10)
[2017-03-31] MEDS: FAMOTIDINE 20 MG TAB PO SCH (08:17)
[2017-03-31] MEDS: DOCUSATE SODIUM 50 MG/SENNA 8.6 MG TAB PO SCH (08:17)
[2017-03-31] MEDS: SODIUM CHLORIDE 0.9% FLUSH 10 ML FLUSH IV FLUSH SCH (08:17)
[2017-03-31 08:20] VITALS: PULSE 78
[2017-03-31] MEDS: INSULIN DETEMIR 100 UNITS/ML VIAL SQ SCH (08:20)
[2017-03-31 08:28] VITALS: BP 175/88; PULSE 81; RESP 20; TEMP 97.9; O2SAT 99
[2017-03-31] MEDS: LISINOPRIL 20 MG TAB PO SCH (09:23)
--- NOTE | 2017-03-31 10:16 | HHI.NPPN ---
Subjective Renal Failure: Chronic, Acute, Stage III Interval History He has no concerns today. Labs in process. (Britney Perry) Review of Systems Respiratory Lungs: SOB, Cough (Britney Perry) Cardiovascular Cardiac: Chest Pain Cardiac Remarks mostly resolved (Britney Perry) Objective Data Data 03/30/17 03/31/17 19:00 07:00 Intake Total 0 ml 1320 ml Output Total 200 ml 1850 ml Balance -200 ml -530 ml Intake Oral 0 ml 1320 ml Output Urine Total 200 ml 1850 ml # Voids 1 # Bowel Movements 1 Vital Signs Date Time Temp Pulse Resp B/P Pulse Ox O2 Delivery O2 Flow Rate FiO2 03/31/17 08:28 97.9 81 20 175/88 99 03/31/17 08:20 78 03/31/17 04:00 97.8 81 18 142/88 98 03/30/17 23:20 75 03/30/17 23:00 98.4 77 18 164/89 99 03/30/17 20:57 98.6 76 18 156/80 99 03/30/17 20:00 90 03/30/17 16:06 97.9 82 16 153/76 95 03/30/17 12:00 98.1 77 20 175/90 100 (Britney Perry) -: 03/29/17 0929 03/30/17 0557 Physical Exam General Appearance: Well Developed, No Acute Distress, Comfortable (Britney Perry) Eyes Eye Remarks blind at baseline (Britney Perry) Throat Throat Exam: Oral Mucosa [place] & Moist (Britney Perry) Neck Neck Exam: Neck Supple (Britney Perry) Pulmonary Resp Exam: Clear Bilaterally, Breath Sounds Equal (Britney Perry) Cardiology CV Exam: Regular, Normal Sinus Rhythm, Good Perfusion (Britney Perry) Gastrointestinal/Abdomen GI Exam: Soft, Non-Tender, Bowel Sounds Present (Britney Perry) Musculoskeletal MS Exam: Joints Intact, Normal Gait, Normal Tone, Good Strength (Britney Perry) Integumentary Skin Exam: Clear, Warm, Dry, Intact (Britney Perry) Extremeties Extremities Exam: No Edema, Pedal Pulses Palpable (Britney Perry) Neurologic Neuro Exam: Alert, Awake, Oriented, Speech Clear, Moving All Extremities ( Britney Perry) Psychiatric Psych Exam: Appropriate Responses (Britney Perry) Assessment/Plan Discussed Condition With: Patient Assessment Summary: POLI/Acute Renal Failure, Proteinuria, CHF, Hypertension, Diabetes Mellitus Problem List: (1) ARF (acute renal failure) Plan: In a patient with baseline CKD 3, creatinine 1.64/GFR 53 in September 2016 , suspected underlying diabetic nephropathy POLI from suspected renal hypoperfusion, may have progressed to ATN renal function improving, repeat in process he is non oliguric, hx BPH, started on Flomax avoid nephrotoxic medications avoid IVF he is cleared for discharge, we will follow in CKD clinic resume home medications after discharge, although he may not require KCL tabs daily (2) Hypertension Plan: on coreg and hydralazine; resume CHANTAL after discharge (3) Diabetes mellitus Plan: blood sugar is acceptable, continue insulin therapy with a goal 14-180 mg /dL glucose level (4) CHF (congestive heart failure) Plan: fluid status is stable resume lasix at discharge (Britney Perry) Plan patient was seen and examined. Renal function has improved, he can be discharged from renal standpoint. Agree with above assessment and plan. ( Rohit Granados MD) Britney Perry Mar 31, 2017 10:15 Rohit Granados MD Apr 01, 2017 14:00
[2017-03-31] MEDS ORDERED: TAMS5CAP PO (10:56)
[2017-03-31] MEDS ORDERED: FAMO20TA2 PO (10:56)
--- NOTE | 2017-03-31 10:57 | HHI.DCPOC ---
Discharge Care Plan Diagnosis: (1) Gastroenteritis (2) Hypertension (3) Diabetes mellitus (4) Abdominal pain (5) Chest pain (6) Cough Goals to Promote Your Health * To prevent worsening of your condition and complications * To maintain your health at the optimal level Directions to Meet Your Goals Take your medications as prescribed Follow your dietary instruction Follow activity as directed Keep your appointments as scheduled Take your immunizations and boosters as scheduled If your symptoms worsen call your PCP, if no PCP go to Urgent Care Center or Emergency Room Smoking is Dangerous to Your Health. Avoid second hand smoke Call the 24-hour hour crisis hotline for domestic abuse at Lyndsey rAnold PA-C Mar 31, 2017 10:57 am
--- NOTE | 2017-03-31 11:34 | HHI.DS ---
cc: Rohit Granados MD; Marylin Gonzalez MD Discharge Summary Admission Date Mar 29, 2017 at 4:20 pm Discharge Date: Mar 31, 2017 Admitting Diagnosis Chest pain (1) Gastroenteritis ICD Code: K52.9 Diagnosis: Principal (2) Abdominal pain ICD Code: R10.9 Diagnosis: Principal (3) Nausea ICD Code: R11.0 Diagnosis: Principal (4) Chest pain ICD Code: R07.9 Diagnosis: Principal (5) Cough ICD Code: R05 Diagnosis: Secondary (6) POLI (acute kidney injury) ICD Code: N17.9 Diagnosis: Principal (7) CKD (chronic kidney disease) stage 3, GFR 30-59 ml/min ICD Code: N18.3 Diagnosis: Secondary (8) CHF (congestive heart failure) ICD Code: I50.9 Diagnosis: Secondary (9) Hypertension ICD Code: I10 Diagnosis: Secondary (10) Diabetes mellitus ICD Code: E11.9 Diagnosis: Secondary Procedures No procedures performed to the patient. 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 The patient reports 2 days ago he developed congestion and cough with sputum production (unknown color as patient is blind). Denies fevers/chills. He then developed diffuse abdominal pain located across bilateral mid abdomen/ periumbilical yesterday and then became nauseous and vomited twice. He states with the vomiting he also developed chest pains located at the left lower lateral rib cage that has now resolved. The patient reports his last BM was 2 days ago. The patient does endorse contact with a friend who had flulike symptoms on 03/21/17. He denies any other medical complaints. Since his arrival to the ER, he has been given IV Zofran and morphine and he started feeling better. He has now ate lunch and has not yet had any further nausea or vomiting. 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 Denies any history of NC/CAD. CBC/BMP: 03/29/17 0929 03/30/17 0557 Significant Findings Laboratory Tests Test 03/29/17 03/30/17 03/30/17 09:29 00:30 05:57 Hemoglobin 10.9 GM/DL (13.0-17.0) Hematocrit 34.6 % (39.0-51.0) Mean Corpuscular Volume 76.2 FL (80.0-100.0) Mean Corpuscular Hemoglobin 24.1 PG (27.0-34.0) Mean Corpuscular Hemoglobin 31.7 % Concent (32.0-36.0) Platelet Count 119 TH/MM3 (150-450) Monocytes (%) (Auto) 13.5 % (0.0-8.0) Blood Urea Nitrogen 32 MG/DL (7-18) 31 MG/DL (7-18) Creatinine 2.69 MG/DL 2.19 MG/DL (0.60-1.30) (0.60-1.30) Estimat Glomerular Filtration 30 ML/MIN (>89) 38 ML/MIN (>89) Rate Random Glucose 133 MG/DL (74-106) Calcium Level 8.2 MG/DL (8.5-10.1) Urine Microalbumin/Creatinine 1223 MG/G CRE Ratio (0-30) Sodium Level 135 MEQ/L (136-145) Chloride Level 109 MEQ/L (98-107) Carbon Dioxide Level 17.5 MEQ/L (21.0-32.0) Albumin 2.1 GM/DL (3.4-5.0) Imaging Last Impressions Chest X-Ray 03/27/17 0756 Signed Impressions: Service Date/Time: Monday, March 27, 2017 08:02 - CONCLUSION: Normal examination. Ion Staley MD Abdomen/Pelvis CT 03/27/17 0000 Signed Impressions: Service Date/Time: Monday, March 27, 2017 10:05 - CONCLUSION: Normal examination except for prostatic enlargement. Ion Staley MD PE at Discharge GENERAL: Well-nourished, well-developed pleasant blind AA male patient in NAD. SKIN: Warm and dry. No rash. HEENT: Normocephalic. Atraumatic. Mucous membranes pink and moist. NECK: Supple. Trachea midline. CARDIOVASCULAR: Regular rate and rhythm. S1, S2 noted. No murmur appreciated. RESPIRATORY: No accessory muscle use. Clear to auscultation. Breath sounds equal bilaterally. GASTROINTESTINAL: Abdomen soft, non-tender, nondistended. Normoactive bowel sounds x4. MUSCULOSKELETAL: No obvious deformities. Extremities without clubbing, cyanosis , or edema. NEUROLOGICAL: Awake and alert. No obvious cranial nerve deficits. Motor grossly within normal limits. Normal speech. PSYCHIATRIC: Appropriate mood and affect; insight and judgment normal. Pt update on day of discharge Follow up for gastroenteritis, POLI on CKD. The patient reports feeling much better again today and wants to go home. Denies any further nausea/vomiting/ abdominal pain. He is tolerating oral intake. No fevers/chills. He has no other medical complaints at this time. 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 The patient was initially admitted with abdominal pain/nausea/vomiting, suspected secondary viral enteritis. CT abd/pelvis reviewed, no acute findings although study done without oral or IV contrast. Lipase and LFTs wnl. Afebrile, no leukocytosis, and lactic acid 1.3. He was given supportive treatment with gentle IVF, antiemetics and pain control prn. Diet was advanced. Likely component of constipation no BM x3days, relieved after admission with large bowel movement. The patient also reported cough with chest congestion, suspect viral URI with recent sick contact last week. CXR and sputum culture was unremarkable. Patient also diagnosed with SIRS, Tmax 100.4 and tachycardia on . No leukocytosis. UA shows no infection. Suspect source is likely viral. Blood cultures with no growth x3days. No further fevers. Symptoms improved. The patient also had atypical chest pains, suspect pleuritic secondary to recent coughing/vomiting vs epigastric from enteritis. Ruled out ACS, EKG with nonspecific lateral ST changes, no standing and change from previous. Troponins 0.05, 0.05, 0.06; flat, nonischemic. Lipid profile well controlled. Chest pain resolved. He was started on Pepcid. The patient was also diagnosed with POLI on CKD stage III with Cr 2.46, previously 1.94 in March2016, then Cr increased to 2.69 after admission. His lasix and lisinopril were held. Nephrology was consulted, CT abd was negative for obstruction, nephrology suspected hypoperfusion with drop in BP possibly progressed to ATN. Post void bladder scan did not indicate retention, hx of untreated BPH, started on Flomax. BMP improved with Cr 2.19. He was cleared for discharge by nephrology, resume lisinopril today and resume lasix tomorrow. Outpatient follow up with nephrology. The patient was feeling well at discharge, tolerating oral intake, and requested to go home. Of note, echocardiogram was ordered by nephrology on to assess LVEF however still not done on 03/31 therefore echo was canceled by nephrology and will f/up as outpatient. Pt Condition on Discharge: Stable Discharge Disposition: Discharge Home Discharge Time: > 30 minutes Discharge Instructions DIET: Follow Instructions for: Heart Healthy Diet, Diabetic Diet Activities you can perform: Regular-No Restrictions Follow up Referrals: Nephrology - 1 Week with Rohit Granados MD PCP Follow-up - 2-3 Days with Marylin Gonzalez MD New Medications: Famotidine (Famotidine) 20 Mg Tab 10 MG PO BID Manage Heartburn #60 TAB Tamsulosin (Flomax) 0.4 Mg Cap 0.4 MG PO DAILY BPH #30 CAP Continued Medications: Aspirin DR (Aspirin EC) 81 Mg Tabdr 81 MG PO DAILY Ref 0 TAB Carvedilol (Carvedilol) 3.125 Mg Tab 3.125 MG PO BID #60 Ref 0 TAB Furosemide (Furosemide) 40 Mg Tab 40 MG PO DAILY #30 Ref 0 TAB Insulin Detemir Inj (Levemir Inj) 1,000 unit/ 10 ML Vial 28 UNITS SQ DAILY Do not mix with any other Insulin. Blood Sugar Management Ref 0 VIAL Lisinopril (Lisinopril) 40 Mg Tab 40 MG PO DAILY Blood Pressure Management #30 Ref 0 TAB Potassium Chloride Microencaps (Klor-Con M20) 20 Meq Tab 20 MEQ PO DAILY Electrolyte Replacement #30 Ref 0 TAB Discontinued Medications: Cyclobenzaprine (Flexeril) 10 Mg Tab 10 MG PO TID Muscle Spasm #90 Ref 0 TAB Lyndsey Arnold PA-C Mar 31, 2017 11:34 am
[2017-03-31 11:54] LABS: BICARBONATE 24.6 MEQ/L (21.0-32.0); POTASSIUM 4.4 MEQ/L (3.5-5.1)
[2017-03-31 12:07] VITALS: BP 170/84; PULSE 72; RESP 20; TEMP 98.4; O2SAT 98
== END 2017-03-31 15:45 | disposition home or self-care (01) | DRG 392 ==
LOC: NEPE 07:25 → NEDA 10:33 → NEPHCDU 14:31 → OBSVTOIN 03-29 16:20 → N04A 03-30 22:36
PROVIDERS: ADMIT Hospitalist; ATTEND Hospitalist
DX: A08.4 Viral intestinal infection, unspecified (principal); E11.22 Type 2 diabetes mellitus with diabetic chronic kidney disease; N17.9 Acute kidney failure, unspecified; I13.0 Hypertensive heart and chronic kidney disease with heart failure and stage 1 through stage 4 chronic kidney disease, or unspecified chronic kidney disease; N18.3 Chronic kidney disease, stage 3 (moderate); I50.22 Chronic systolic (congestive) heart failure; J44.9 Chronic obstructive pulmonary disease, unspecified; E11.319 Type 2 diabetes mellitus with unspecified diabetic retinopathy without macular edema; E78.5 Hyperlipidemia, unspecified; G89.29 Other chronic pain; M54.5 Low back pain; N40.0 Benign prostatic hyperplasia without lower urinary tract symptoms; K59.00 Constipation, unspecified; Z79.4 Long term (current) use of insulin; Z79.82 Long term (current) use of aspirin
CPT/HCPCS: 71010; 74176; 80048; 80053; 80061; 80069; 81001; 82043; 82550; 82552; 82570; 82948; 83605; 83690; 83735; 83880; 84300; 84484; 85025; 85610; 85730; 87040; 87205; 93005; 96374; 96375; G0378; J1815; J2270; J2405; J7030

== ENCOUNTER 2017-04-16 07:09 | Emergency (ER) | payer OTHER, MEDICAID ==
[~2017-04-16] VITALS: Ht 180.3 cm; Wt 80.0 kg
[~2017-04-16 07:09] MED LIST changes: -CYCL1TAB29 PO; +FAMO20TA2 PO; -PERC7.5T13 PO; +TAMS5CAP PO
[2017-04-16 07:13] VITALS: BP 215/107; PULSE 108; RESP 18; TEMP 98.7; O2SAT 99
--- NOTE | 2017-04-16 07:39 | PD ---
HPI Chief Complaint: Pain: Acute or Chronic Time Seen by Provider: 07:22 Travel History International Travel<30 days: No Contact w/Intl Traveler<30days: No Traveled to known affect area: No History of Present Illness HPI patient c/o 3 days of sharp left sided neck pain, 7/10, nonradiating, worse with movement, improves when decreasing movement. patient states that he did lawn work and work around the house over past week, and now has pain with moving left side of neck PFSH Past Medical History Arthritis: Yes (CHRONIC BACK/ BODY PAIN) Blood Disorders: No Anxiety: No Depression: No Heart Rhythm Problems: No Cancer: No Cardiovascular Problems: Yes High Cholesterol: Yes Chest Pain: Yes Congestive Heart Failure: Yes COPD: Yes Diabetes: Yes Diminished Hearing: No Endocrine: Yes Gastrointestinal Disorders: No GERD: No Glaucoma: No Genitourinary: Yes Hepatitis: No Hiatal Hernia: No Hypertension: Yes Immune Disorder: Yes Kidney Stones: No Musculoskeletal: Yes (ARTHRITIS) Neurologic: No Psychiatric: No Reproductive: No Respiratory: No Integumentary: No Immunizations Current: No Pneumonia: Yes (WITH SEPSIS) Renal Failure: No Thyroid Disease: No Ulcer: Yes (2013) Past Surgical History Abdominal Surgery: Yes AICD: No Cardiac Surgery: No Ear Surgery: No Endocrine Surgery: No Eye Surgery: Yes (SURGERY TO BOTH EYES) Genitourinary Surgery: No Joint Replacement: No Oral Surgery: No Pacemaker: No Thoracic Surgery: No Other Surgery: Yes (Liver Drain, Right Knee Arthroscopy, Eye Sx) Social History Alcohol Use: Yes (social) Tobacco Use: No Substance Use: No Allergies-Medications (Allergen,Severity, Reaction): Coded Allergies: Neurontin (Verified Allergy, Intermediate, Itching, 04/16/17) Reported Meds & Prescriptions Reported Meds & Active Scripts Active Flomax (Tamsulosin HCl) 0.4 Mg Cap 0.4 Mg PO DAILY Reported Aspirin EC (Aspirin) 81 Mg Tabdr 81 Mg PO DAILY Carvedilol 3.125 Mg Tab 3.125 Mg PO BID Furosemide 40 Mg Tab 40 Mg PO DAILY Levemir Inj (Insulin Detemir) 1,000 unit/ 10 ML Vial 28 Units SQ DAILY Do not mix with any other Insulin. Lisinopril 40 Mg Tab 40 Mg PO DAILY Klor-Con M20 (Potassium Chloride Microencaps) 20 Meq Tab 20 Meq PO DAILY Review of Systems Except as stated in HPI: all other systems reviewed are Neg Musculoskeletal: Positive: Limited ROM, Pain Physical Exam Narrative GENERAL: SKIN: Warm and dry. HEAD: Atraumatic. Normocephalic. EYES: Pupils equal and round. No scleral icterus. No injection or drainage. ENT: No nasal bleeding or discharge. Mucous membranes pink and moist. NECK: Trachea midline. No JVD. post scm ttp, also painful with rom. CARDIOVASCULAR: Regular rate and rhythm. RESPIRATORY: No accessory muscle use. Clear to auscultation. Breath sounds equal bilaterally. GASTROINTESTINAL: Abdomen soft, non-tender, nondistended. Hepatic and splenic margins not palpable. MUSCULOSKELETAL: Extremities without clubbing, cyanosis, or edema. No obvious deformities. PATIENT HAS ROM AT WRIST/ELBOW AND SHOULDER WITHOUT TROUBLE NEUROLOGICAL: Awake and alert. No obvious cranial nerve deficits. Motor grossly within normal limits. Five out of 5 muscle strength in the arms and legs. Normal speech. PSYCHIATRIC: Appropriate mood and affect; insight and judgment normal. Data Data Last Documented VS Vital Signs Date Time Temp Pulse Resp B/P Pulse Ox O2 Delivery O2 Flow Rate FiO2 04/16/17 07:55 20 04/16/17 07:13 98.7 108 215/107 99 Orders Electrocardiogram (04/16/17 07:39) Lorazepam Inj (Ativan Inj) (04/16/17 07:45) Ketorolac Inj (Toradol Inj) (04/16/17 07:45) [facility] Medical Decision Making Medical Screen Exam Complete: Yes Emergency Medical Condition: Yes Medical Record Reviewed: Yes Interpretation(s) SINUS RHYTHM, 98, NO STEMI PATTERN AND NO CHANGES WHEN C/W PREVIOUS MARCH 29 EKG Differential Diagnosis ATYPICAL MA V MUSCULOSKELETAL Narrative Course PATIENT'S EKG WAS REVIEWED AND C/W MARCH 29 AND ESSENTIALLY UNCHANGED. PATIENT HAD PALPABLE, REPRODUCIBLE NECK PAIN ON PALPATION OF LEFT SCM AND TRAPEZIUS (NO HEMOTYMPANUM AND NO E/O SCALP TRAUMA). C/W MUSCULOSKELETAL PAIN WILL D/C ON MUSCLE RELAXER Diagnosis Primary Impression: Acute cervical sprain Qualified Code: S13.9XXA - Acute cervical sprain, initial encounter Patient Instructions: General Instructions, Muscle Spasm (ED) Scripts Hydrocodone-Acetaminophen (Lortab)7.5-325 Mg Tab1 Tab PO Q6H PRN (PAIN) #20 TAB Prov:Antoine Boogie MD 04/16/17 Cyclobenzaprine (Flexeril)10 Mg Tab10 Mg PO TID #21 TAB Prov:Antoine Boogie MD 04/16/17 Disposition: 01 DISCHARGE HOME Condition: Stable Antoine Boogie MD Apr 16, 2017 07:39
[2017-04-16] MEDS ORDERED: KETOROLAC TROMETHAMINE 60 MG/2 ML (IM) VIAL IM ONE (07:45)
[2017-04-16] MEDS ORDERED: LORazepam 2 MG/ML VIAL IM ONE (07:45)
[2017-04-16] MEDS ORDERED: ACETAMINOPHEN/HYDROcodone 325 MG/5 MG TAB PO ONE (08:15)
[2017-04-16] MEDS ORDERED: ORPHENADRINE INJ 60 MG/2 ML AMP IM ONE (08:15)
[2017-04-16] MEDS ORDERED: CYCL1TAB29 PO (08:17)
[2017-04-16] MEDS ORDERED: HYDR-3534 PO (08:17)
[2017-04-16] MEDS ORDERED: ULTR50TA5 PO (09:11)
--- NOTE | 2017-04-16 16:18 | EKG ---
Date Performed: 04/16/2017 Time Performed: 07:36:45 PTAGE: 57 years EKG: Sinus tachycardia Minor nonspecific T-wave change Since PREVIOUS TRACING , no significant change. PREVIOUS TRACIN03/28/2017 18.24 DOCTOR: Sadiq Orozco Interpretating Date/Time 04/16/2017 16:16:38
== END 2017-04-16 09:20 | disposition home or self-care (01) ==
LOC: NEPC 07:09
DX: S13.9XXA Sprain of joints and ligaments of unspecified parts of neck, initial encounter (principal); R00.0 Tachycardia, unspecified; M13.88 Other specified arthritis, other site; E78.00 Pure hypercholesterolemia, unspecified; I50.9 Heart failure, unspecified; J44.9 Chronic obstructive pulmonary disease, unspecified; E11.9 Type 2 diabetes mellitus without complications; I10 Essential (primary) hypertension; Y93.H2 Activity, gardening and landscaping
CPT/HCPCS: 93005; 96372; 99284; J1885; J2060; J2360

== ENCOUNTER 2017-12-22 12:57 | Inpatient (IN) | payer OTHER, MEDICAID, MEDICARE ==
[~2017-12-22] VITALS: Ht 180.3 cm; Wt 76.9 kg
[2017-12-22] VITALS (9 sets, daily range): BP systolic 170–224; BP diastolic 79–109; PULSE 69–94; RESP 16–20; TEMP 97.6–98.8; O2SAT 96–100
[~2017-12-22 12:57] MED LIST changes: -ASPI81TA11 PO; +ASPI81TA23 PO; +CYCL10TA PO; -FAMO20TA2 PO; +KLOR20TA3 PO; -POTA-245 PO; +TRAM50 PO
[2017-12-22] MEDS ORDERED: SODIUM CHLOR 0.9% 1000 ML INJ 1,000 ML IV SCH (14:21)
[2017-12-22] MEDS ORDERED: MORPHINE SULFATE 4 MG/ML INJ IV PUSH ONE (14:30)
[2017-12-22] MEDS ORDERED: ONDANSETRON HCL 4 MG/2 ML VIAL IVP ONE (14:30)
[2017-12-22 14:57] LABS: BILIRUBIN, URINE NEG (NEG); BLOOD, URINE SMALL (NEG); GLUCOSE,URINE 70 mg/dL (NEG); HYALINE CAST, URINE 3 /lpf (RARE); KETONE, URINE NEG (NEG); NITRITE,URINE NEG (NEG); PH, URINE 6.5 (5.0-8.5); SQUAMOUS EPITHELIAL CELL URINE <1 /hpf (0-5); URINE COLOR LIGHT-YELLOW (YELLW/STRAW); URINE LEUKOCYTE ESTERASE NEG (NEG)
[2017-12-22 15:05] LABS: AUTOMATED NEUTROPHIL # 5.9 TH/MM3 (1.8-7.7); BASOPHIL % 0.3 % (0.0-2.0); EOSINOPHIL # 0.1 TH/MM3 (0-0.4); EOSINOPHIL % 1.4 % (0.0-4.0); HEMATOCRIT 33.2 % (39.0-51.0); LYMPH % 19.3 % (9.0-44.0); LYMPHOCYTE # 1.6 TH/MM3 (1.0-4.8); MEAN CELL VOLUME 76.5 FL (80.0-100.0); MEAN CORPUSCULAR HEMOGLOBIN 25.5 PG (27.0-34.0); MEAN CORPUSCULAR HGB CONC 33.3 % (32.0-36.0); MEAN PLATELET VOLUME 10.8 FL (7.0-11.0); MONO % 7.5 % (0.0-8.0); MONOCYTE # 0.6 TH/MM3 (0-0.9); NEUT % 71.5 % (16.0-70.0); PLATELET COUNT 156 TH/MM3 (150-450); RED BLOOD COUNT 4.34 MIL/MM3 (4.50-5.90); WHITE BLOOD COUNT 8.2 TH/MM3 (4.0-11.0)
[2017-12-22] MEDS ORDERED: LISINOPRIL 20 MG TAB PO ONE ×2 (15:30)
[2017-12-22] MEDS ORDERED: CARVEDILOL 3.125 MG TAB PO ONE (15:30)
--- NOTE | 2017-12-22 15:33 | PD ---
HPI Chief Complaint: GI Complaint Time Seen by Provider: 14:03 Travel History International Travel<30 days: No Contact w/Intl Traveler<30days: No Traveled to known affect area: No History of Present Illness HPI 57-year-old male who presents to the ED for evaluation of dizziness, nausea vomiting abdominal pain. Patient cannot keep anything down has been throwing up a lot. Per patient he feels very dizzy whenever he stands in calcium to be very nauseous. Per patient has never had this before. He has a history of having "a hole on my stomach". He denies any recent surgeries. He denies any chest pain or shortness of breath. He does state that he has a history of heart problems as well as high blood pressure and prostate issues. He takes medications for this but again is not able to keep anything down today. He denies any diarrhea. Per patient he denies any injuries or trauma. States that he cannot keep anything down because he just throws it up. Pain per patient especially on the belly is 8 out of 10. He states having a headache feels like a pressure. Allergy to gabapentin. PFSH Past Medical History Arthritis: Yes (CHRONIC BACK/ BODY PAIN) Blood Disorders: No Anxiety: No Depression: No Heart Rhythm Problems: No Cancer: No Cardiovascular Problems: Yes High Cholesterol: Yes Chest Pain: Yes Congestive Heart Failure: Yes COPD: Yes Diabetes: Yes Patient Takes Glucophage: No Diminished Hearing: No Endocrine: Yes Gastrointestinal Disorders: Yes GERD: No Glaucoma: No Genitourinary: Yes Hepatitis: No Hiatal Hernia: No Hypertension: Yes Immune Disorder: Yes Kidney Stones: No Musculoskeletal: Yes (ARTHRITIS) Neurologic: No Psychiatric: No Reproductive: No Respiratory: No Integumentary: No Immunizations Current: No Pneumonia: Yes (WITH SEPSIS) Renal Failure: No Thyroid Disease: No Ulcer: Yes (2013) Past Surgical History Abdominal Surgery: Yes AICD: No Cardiac Surgery: No Ear Surgery: No Endocrine Surgery: No Eye Surgery: Yes (SURGERY TO BOTH EYES) Genitourinary Surgery: No Joint Replacement: No Oral Surgery: No Pacemaker: No Thoracic Surgery: No Other Surgery: Yes (Liver Drain, Right Knee Arthroscopy, Eye Sx) Social History Alcohol Use: Yes (social) Tobacco Use: No Substance Use: No Allergies-Medications (Allergen,Severity, Reaction): Coded Allergies: gabapentin (Unverified Allergy, Intermediate, Itching, 8/16/17) Reported Meds & Prescriptions Reported Meds & Active Scripts Active Reported Aspirin EC (Aspirin) 81 Mg Tabdr 81 Mg PO DAILY Carvedilol 3.125 Mg Tab 3.125 Mg PO BID Furosemide 40 Mg Tab 40 Mg PO DAILY Levemir Inj (Insulin Detemir) 1,000 unit/ 10 ML Vial 28 Units SQ DAILY Do not mix with any other Insulin. Lisinopril 40 Mg Tab 40 Mg PO DAILY Review of Systems Except as stated in HPI: all other systems reviewed are Neg Physical Exam Narrative GENERAL: SKIN: Warm and dry. HEAD: Atraumatic. Normocephalic. EYES: Pupils equal and round 4 mm reactive to light and accommodation. No scleral icterus. No injection or drainage. ENT: No nasal bleeding or discharge. Mucous membranes pink and moist. Tongue is midline. No uvula deviation. NECK: Trachea midline. No JVD. CARDIOVASCULAR: Regular rate and rhythm. No murmurs, S3, S4. RESPIRATORY: No accessory muscle use. Clear to auscultation. Breath sounds equal bilaterally. GASTROINTESTINAL: Abdomen soft, tender to touch on the abdomen especially in the upper abdomen, nondistended. Hepatic and splenic margins not palpable. MUSCULOSKELETAL: Extremities without clubbing, cyanosis, or edema. No obvious deformities. Full range of motion of the upper and lower extremities bilaterally. 2+ pulses bilaterally. NEUROLOGICAL: Awake and alert. No obvious cranial nerve deficits. Motor grossly within normal limits. Five out of 5 muscle strength in the arms and legs. Normal speech. PSYCHIATRIC: Appropriate mood and affect; insight and judgment normal. Data Data Last Documented VS Vital Signs Date Time Temp Pulse Resp B/P (MAP) Pulse Ox O2 Delivery O2 Flow Rate FiO2 12/22/17 17:47 69 18 195/95 (128) 100 Room Air 12/22/17 13:38 98.8 Orders Orders Complete Blood Count With Diff (12/22/17 14:13) Comprehensive Metabolic Panel (12/22/17 14:13) Urinalysis - C+S If Indicated (12/22/17 14:13) Iv Access Insert/Monitor (12/22/17 14:13) Oximetry (12/22/17 14:13) Lipase (12/22/17 14:13) Lactic Acid (12/22/17 14:21) Ecg Monitoring (12/22/17 14:21) Morphine Inj (Morphine Inj) (12/22/17 14:30) Ondansetron Inj (Zofran Inj) (12/22/17 14:30) Sodium Chlor 0.9% 1000 Ml Inj (Ns 1000 M (12/22/17 14:21) Electrocardiogram (12/22/17 14:21) Ct Brain W/O Iv Contrast(Rout) (12/22/17 ) Lisinopril (Prinivil) (12/22/17 15:30) Carvedilol (Coreg) (12/22/17 15:30) Lisinopril (Prinivil) (12/22/17 15:30) Orthostatic Vital Signs (12/22/17 15:30) Morphine Inj (Morphine Inj) (12/22/17 15:45) Sodium Chlor 0.9% 1000 Ml Inj (Ns 1000 M (12/22/17 16:00) Ct Abd/Pel W/O Iv Contrast (12/22/17 ) Hydralazine Inj (Apresoline Inj) (12/22/17 18:00) Place In Observation (12/22/17 ) Vital Signs (Adult) Q4H (12/22/17 18:19) Activity Oob With Assistance (12/22/17 18:19) Stage Rigger / Telemetry .CONTINUOUS (12/22/17 18:19) Diet Clear Liquid (12/22/17 Dinner) Sodium Chlor 0.9% 1000 Ml Inj (Ns 1000 M (12/22/17 18:19) Sodium Chloride 0.9% Flush (Ns Flush) (12/22/17 18:30) Sodium Chloride 0.9% Flush (Ns Flush) (12/22/17 21:00) Ondansetron Inj (Zofran Inj) (12/22/17 18:30) Basic Metabolic Panel (Bmp) (12/23/17 06:00) Complete Blood Count With Diff (12/23/17 06:00) Naloxone Inj (Narcan Inj) (12/22/17 18:30) ^ Other Nursing Orders (12/22/17 18:19) Consult General Surgery (12/22/17 ) Morphine Inj (Morphine Inj) (12/22/17 18:30) Admit Order (Ed Use Only) (12/22/17 18:23) Labs Laboratory Tests Test 12/22/17 14:29 12/22/17 14:32 White Blood Count 8.2 TH/MM3 Red Blood Count 4.34 MIL/MM3 Hemoglobin 11.0 GM/DL Hematocrit 33.2 % Mean Corpuscular Volume 76.5 FL Mean Corpuscular Hemoglobin 25.5 PG Mean Corpuscular Hemoglobin Concent 33.3 % Red Cell Distribution Width 14.0 % Platelet Count 156 TH/MM3 Mean Platelet Volume 10.8 FL Neutrophils (%) (Auto) 71.5 % Lymphocytes (%) (Auto) 19.3 % Monocytes (%) (Auto) 7.5 % Eosinophils (%) (Auto) 1.4 % Basophils (%) (Auto) 0.3 % Neutrophils # (Auto) 5.9 TH/MM3 Lymphocytes # (Auto) 1.6 TH/MM3 Monocytes # (Auto) 0.6 TH/MM3 Eosinophils # (Auto) 0.1 TH/MM3 Basophils # (Auto) 0.0 TH/MM3 CBC Comment DIFF FINAL Differential Comment Urine Color LIGHT-YELLOW Urine Turbidity CLEAR Urine pH 6.5 Urine Specific [place] 1.012 Urine Protein 300 mg/dL Urine Glucose (UA) 70 mg/dL Urine Ketones NEG mg/dL Urine Occult Blood SMALL Urine Nitrite NEG Urine Bilirubin NEG Urine Urobilinogen LESS THAN 2.0 MG/DL Urine Leukocyte Esterase NEG Urine RBC 5 /hpf Urine WBC LESS THAN 1 /hpf Urine Squamous Epithelial Cells <1 /hpf Urine Hyaline Casts 3 /lpf Microscopic Urinalysis Comment CULT NOT INDICATED Blood Urea Nitrogen 22 MG/DL Creatinine 2.90 MG/DL Random Glucose 79 MG/DL Total Protein 6.3 GM/DL Albumin 2.5 GM/DL Calcium Level 8.1 MG/DL Alkaline Phosphatase 82 U/L Aspartate Amino Transf (AST/SGOT) 22 U/L Alanine Aminotransferase (ALT/SGPT) 27 U/L Total Bilirubin 0.3 MG/DL Sodium Level 145 MEQ/L Potassium Level 3.7 MEQ/L Chloride Level 115 MEQ/L Carbon Dioxide Level 24.3 MEQ/L Anion Gap 6 MEQ/L Estimat Glomerular Filtration Rate 27 ML/MIN Lipase 77 U/L Lactic Acid Level 0.5 mmol/L MDM Medical Decision Making Medical Screen Exam Complete: Yes Emergency Medical Condition: Yes Medical Record Reviewed: Yes Interpretation(s) CBC & BMP Diagram 12/22/17 14:29 Total Protein 6.3 L, Albumin 2.5 L, Calcium Level 8.1 L, Alkaline Phosphatase 82 , Aspartate Amino Transf (AST/SGOT) 22, Alanine Aminotransferase (ALT/SGPT) 27, Total Bilirubin 0.[address] 12/22/17 0000 Signed Impressions: Service Date/Time: December 17:29 - CONCLUSION: 1. No acute findings in the brain. Leeroy Norman MD Abdomen/Pelvis CT 12/22/17 0000 Signed Impressions: Service Date/Time: December 17:33 - CONCLUSION: 1. Interval interval development of appendicolith near the tip the appendix with overall appendiceal size 6 mm, upper limits normal. 2. Prostate enlargement indenting on the urinary bladder, similar in configuration to prior. Leeroy Norman MD lactic acid WNL UA WNL Differential Diagnosis Acute abdomen versus abdominal pain versus gastroenteritis versus mass in the right dizziness with lightheadedness versus otalgia versus nausea and vomiting Narrative Course 57-year-old male presents to the ED for evaluation of abdominal pain. Labs and imaging were done. Patient was given IV pain medication as well as attending recommendation p.o. hypertensives. Labs and imaging showed inflammed appendix and possible appendicolith. Surprisingly patient has pain everywhere else on his abdomen but the right lower quadrant. Unclear if this is related or not. Patient does appear to be very hypertensive here. Patient with his p.o. medications with no relief of the blood pressure. Given IV hydralazine and this seemed to finally bring down the blood pressure below the 200 systolic. Patient was given pain medications. My attending evaluated the patient herself and agrees with plan. She agrees the patient has no right lower quadrant pain. I spoke with Dr. Harris who states that will evaluate the patient will here in the hospital. He wants to start patient on Flagyl and Levaquin. This was started. Case was discussed with Dr. Dhaliwal who agreed to admission. Diagnosis Primary Impression: Abdominal pain Qualified Codes: R10.84 - Generalized abdominal pain Additional Impressions: Vomiting Qualified Codes: R11.10 - Vomiting, unspecified Hypertensive urgency Admitting Information Admitting Physician Requests: Observation Pteros Jordan Dec 22, 2017 15:32
[2017-12-22 15:35] LABS: ALBUMIN 2.5 GM/DL (3.4-5.0); ALT (GPT) 27 U/L (12-78); AST (GOT) 22 U/L (15-37); BICARBONATE 24.3 MEQ/L (21.0-32.0); BLOOD UREA NITROGEN 22 MG/DL (7-18); CALCIUM 8.1 MG/DL (8.5-10.1); CHLORIDE 115 MEQ/L (98-107); GLOMERULAR FILTRATION RATE 27 ML/MIN (>89); GLUCOSE,RANDOM 79 MG/DL (74-106); SODIUM (NA) 145 MEQ/L (136-145)
[2017-12-22 15:36] LABS: ALKALINE PHOSPHATASE 82 U/L (45-117); TOTAL BILIRUBIN ADULT 0.3 MG/DL (0.2-1.0); TOTAL PROTEIN 6.3 GM/DL (6.4-8.2)
[2017-12-22] MEDS ORDERED: MORPHINE SULFATE 2 MG/ML SYRINGE IV PUSH ONE (15:45)
[2017-12-22] MEDS ORDERED: SODIUM CHLOR 0.9% 1000 ML INJ 1,000 ML IV ONE (16:00)
--- NOTE | 2017-12-22 17:52 | RADRPT ---
EXAM DATE/TIME: 12/22/2017 17:29 [facility] COMPARISON: No previous studies available for comparison. INDICATIONS : Hypertension, dizziness RADIATION DOSE: 48.23 CTDIvol (mGy) MEDICAL HISTORY : Cardiovascular disease. Hypertension. Diabetes, enlarged prostate SURGICAL HISTORY : None. ENCOUNTER: Initial ACUITY: 2 days PAIN SCALE: 4/10 LOCATION: cranial TECHNIQUE: Multiple contiguous axial images were obtained of the head. Using automated exposure control and adj ustment of the mA and/or kV according to patient size, radiation dose was kept as low as reasonably a chievable to obtain optimal diagnostic quality images. DICOM format image data is available electro nically for review and comparison. FINDINGS: CEREBRUM: The ventricles are normal for age. No evidence of midline shift, mass lesion, hemorrhage or acute in farction. No extra-axial fluid collections are seen. POSTERIOR FOSSA: The cerebellum and brainstem are intact. The 4th ventricle is midline. The cerebellopontine angle i s unremarkable. EXTRACRANIAL: Atrophic and calcified right eyeball. There is extension of the medial wall of the right bony orbit into the ethmoids.. SKULL: The calvaria is intact. No evidence of skull fracture. CONCLUSION: 1. No acute findings in the brain. Leeroy Norman MD on December 22, 2017 at 17:48 Board Certified Radiologist. This report was verified electronically.
[2017-12-22] MEDS ORDERED: hydrALAZINE HCL 20 MG/ML VIAL IV PUSH ONE (18:00)
--- NOTE | 2017-12-22 18:04 | RADRPT ---
EXAM DATE/TIME: 12/22/2017 17:33 [place] COMPARISON: CT ABDOMEN & PELVIS W/O CONTRAST, March 27, 2017, 10:05. INDICATIONS : Abdominal pain ORAL CONTRAST: No oral contrast ingested. RADIATION DOSE: 9.28 CTDIvol (mGy) MEDICAL HISTORY : Cardiovascular disease. Hypertension. Diabetes, enlarged prostate SURGICAL HISTORY : None. ENCOUNTER: Initial ACUITY: 2 days PAIN SCALE: 6/10 LOCATION: Bilateral Abdomen TECHNIQUE: Volumetric scanning of the abdomen and pelvis was performed. Using automated exposure control and ad justment of the mA and/or kV according to patient size, radiation dose was kept as low as reasonably achievable to obtain optimal diagnostic quality images. DICOM format image data is available electro nically for review and comparison. FINDINGS: LOWER LUNGS: The visualized lower lungs are clear. LIVER: Homogeneous density without lesion for noncontrast technique. There is no dilation of the biliary tr ee. No calcified gallstones. SPLEEN: Normal size without lesion. PANCREAS: Within normal limits. KIDNEYS: Normal in size and shape. There is no mass, stone, or hydronephrosis. ADRENAL GLANDS: Within normal limits. VASCULAR: There is no aortic aneurysm. BOWEL/MESENTERY: No dilated loops of small or large bowel. The appendix is identified in the right lower quadrant and measures 6 mm in size, upper limits normal. There is a 3 mm calcification near the tip of the appen iker, best seen on axial image #67 and on coronal image #39. This is a new finding from prior CT. No induration of the fat about the appendix. No evidence of free fluid. ABDOMINAL WALL: Within normal limits. RETROPERITONEUM: There is no lymphadenopathy. BLADDER: No wall thickening or mass. REPRODUCTIVE: Marked enlargement of the prostate causing significant indentation on the urinary bladder. AP dimens ion the prostate measures 6.5 cm. Configuration is unchanged from prior examination in 2017. INGUINAL: There is no lymphadenopathy or hernia. MUSCULOSKELETAL: Within normal limits for patient age. CONCLUSION: 1. Interval interval development of appendicolith near the tip the appendix with overall appendiceal size 6 mm, upper limits normal. 2. Prostate enlargement indenting on the urinary bladder, similar in configuration to prior. Leeroy Norman MD on December 22, 2017 at 17:57 Board Certified Radiologist. This report was verified electronically.
--- NOTE | 2017-12-22 18:12 | PD ---
Physical Exam Narrative GENERAL: 57-year-old male in no apparent distress SKIN: Focused skin assessment warm/dry. HEAD: Atraumatic. Normocephalic. EYES: Pupils equal and round. No scleral icterus. No injection or drainage. ENT: No nasal bleeding or discharge. Mucous membranes pink and moist. NECK: Trachea midline. CARDIOVASCULAR: Regular rate and rhythm. RESPIRATORY: No accessory muscle use. Clear to auscultation. Breath sounds equal bilaterally. GASTROINTESTINAL: Abdomen soft, Tender to epigastric and left lower quadrant, nondistended. no rebound or guarding MUSCULOSKELETAL: No obvious deformities. No clubbing. No cyanosis. No edema. NEUROLOGICAL: Awake and alert. No obvious cranial nerve deficits. Motor grossly within normal limits. Normal speech. Data Data Last Documented VS Vital Signs Date Time Temp Pulse Resp B/P (MAP) Pulse Ox O2 Delivery O2 Flow Rate FiO2 12/22/17 17:47 69 18 195/95 (128) 100 Room Air 12/22/17 13:38 98.8 Orders Orders Complete Blood Count With Diff (12/22/17 14:13) Comprehensive Metabolic Panel (12/22/17 14:13) Urinalysis - C+S If Indicated (12/22/17 14:13) Iv Access Insert/Monitor (12/22/17 14:13) Oximetry (12/22/17 14:13) Lipase (12/22/17 14:13) Lactic Acid (12/22/17 14:21) Ecg Monitoring (12/22/17 14:21) Morphine Inj (Morphine Inj) (12/22/17 14:30) Ondansetron Inj (Zofran Inj) (12/22/17 14:30) Sodium Chlor 0.9% 1000 Ml Inj (Ns 1000 M (12/22/17 14:21) Electrocardiogram (12/22/17 14:21) Ct Brain W/O Iv Contrast(Rout) (12/22/17 ) Lisinopril (Prinivil) (12/22/17 15:30) Carvedilol (Coreg) (12/22/17 15:30) Lisinopril (Prinivil) (12/22/17 15:30) Orthostatic Vital Signs (12/22/17 15:30) Morphine Inj (Morphine Inj) (12/22/17 15:45) Sodium Chlor 0.9% 1000 Ml Inj (Ns 1000 M (12/22/17 16:00) Ct Abd/Pel W/O Iv Contrast (12/22/17 ) Hydralazine Inj (Apresoline Inj) (12/22/17 18:00) Place In Observation (12/22/17 ) Vital Signs (Adult) Q4H (12/22/17 18:19) Activity Oob With Assistance (12/22/17 18:19) Career Coach / Telemetry .CONTINUOUS (12/22/17 18:19) Diet Clear Liquid (12/22/17 Dinner) Sodium Chlor 0.9% 1000 Ml Inj (Ns 1000 M (12/22/17 18:19) Sodium Chloride 0.9% Flush (Ns Flush) (12/22/17 18:30) Sodium Chloride 0.9% Flush (Ns Flush) (12/22/17 21:00) Ondansetron Inj (Zofran Inj) (12/22/17 18:30) Basic Metabolic Panel (Bmp) (12/23/17 06:00) Complete Blood Count With Diff (12/23/17 06:00) Naloxone Inj (Narcan Inj) (12/22/17 18:30) ^ Other Nursing Orders (12/22/17 18:19) Consult General Surgery (12/22/17 ) Morphine Inj (Morphine Inj) (12/22/17 18:30) Admit Order (Ed Use Only) (12/22/17 18:23) Labs Laboratory Tests Test 12/22/17 14:29 12/22/17 14:32 White Blood Count 8.2 TH/MM3 Red Blood Count 4.34 MIL/MM3 Hemoglobin 11.0 GM/DL Hematocrit 33.2 % Mean Corpuscular Volume 76.5 FL Mean Corpuscular Hemoglobin 25.5 PG Mean Corpuscular Hemoglobin Concent 33.3 % Red Cell Distribution Width 14.0 % Platelet Count 156 TH/MM3 Mean Platelet Volume 10.8 FL Neutrophils (%) (Auto) 71.5 % Lymphocytes (%) (Auto) 19.3 % Monocytes (%) (Auto) 7.5 % Eosinophils (%) (Auto) 1.4 % Basophils (%) (Auto) 0.3 % Neutrophils # (Auto) 5.9 TH/MM3 Lymphocytes # (Auto) 1.6 TH/MM3 Monocytes # (Auto) 0.6 TH/MM3 Eosinophils # (Auto) 0.1 TH/MM3 Basophils # (Auto) 0.0 TH/MM3 CBC Comment DIFF FINAL Differential Comment Urine Color LIGHT-YELLOW Urine Turbidity CLEAR Urine pH 6.5 Urine Specific [place] 1.012 Urine Protein 300 mg/dL Urine Glucose (UA) 70 mg/dL Urine Ketones NEG mg/dL Urine Occult Blood SMALL Urine Nitrite NEG Urine Bilirubin NEG Urine Urobilinogen LESS THAN 2.0 MG/DL Urine Leukocyte Esterase NEG Urine RBC 5 /hpf Urine WBC LESS THAN 1 /hpf Urine Squamous Epithelial Cells <1 /hpf Urine Hyaline Casts 3 /lpf Microscopic Urinalysis Comment CULT NOT INDICATED Blood Urea Nitrogen 22 MG/DL Creatinine 2.90 MG/DL Random Glucose 79 MG/DL Total Protein 6.3 GM/DL Albumin 2.5 GM/DL Calcium Level 8.1 MG/DL Alkaline Phosphatase 82 U/L Aspartate Amino Transf (AST/SGOT) 22 U/L Alanine Aminotransferase (ALT/SGPT) 27 U/L Total Bilirubin 0.3 MG/DL Sodium Level 145 MEQ/L Potassium Level 3.7 MEQ/L Chloride Level 115 MEQ/L Carbon Dioxide Level 24.3 MEQ/L Anion Gap 6 MEQ/L Estimat Glomerular Filtration Rate 27 ML/MIN Lipase 77 U/L Lactic Acid Level 0.5 mmol/L MDM Supervised Visit with MARC: Yes Interpretation(s) CBC & BMP Diagram 12/22/17 14:29 Total Protein 6.3 L, Albumin 2.5 L, Calcium Level 8.1 L, Alkaline Phosphatase 82 , Aspartate Amino Transf (AST/SGOT) 22, Alanine Aminotransferase (ALT/SGPT) 27, Total Bilirubin 0.3 Last [address] 12/22/17 0000 Signed Impressions: Service Date/Time: December 17:29 - CONCLUSION: 1. No acute findings in the brain. Leeroy Norman MD Narrative Course I, Dr. bocanegra, have reviewed the advance practice practitioner's documentation and am in agreement, met with the patient face to face, made the diagnosis, and the medical decision making was done by me. *My assessment and Findings: 57-year-old male presents with vomiting, abdominal pain and dizziness. Patient is not keeping his blood pressure medications down. Given anti-emetics but still has persistent emesis. Will admit to the hospital for blood pressure control and anti-emetics. CT shows appendicolith the patient is not having significant tenderness over this area currently and is requesting diet will discuss with general surgery Physician Communication Physician Communication dr hartley agrees to admit Diagnosis Primary Impression: Hypertensive urgency Additional Impressions: Vomiting Qualified Codes: R11.10 - Vomiting, unspecified Abdominal pain Qualified Codes: R10.84 - Generalized abdominal pain Admitting Information Admitting Physician Requests: Observation Radha Bocanegra MD Dec 22, 2017 18:12
[2017-12-22] MEDS ORDERED: SODIUM CHLORIDE 0.9% FLUSH 10 ML FLUSH IV FLUSH PRN (18:30)
[2017-12-22] MEDS ORDERED: NALOXONE HCL 0.4 MG/ML AMP IV PUSH PRN (18:30)
[2017-12-22] MEDS ORDERED: ONDANSETRON HCL 4 MG/2 ML VIAL IVP PRN (18:30)
[2017-12-22] MEDS ORDERED: LEVOFLOXACIN 500 MG PREMIX INJ 100 ML IV ONE (18:45)
[2017-12-22] MEDS ORDERED: metroNIDAZOLE 500 MG INJ 100 ML IV ONE (18:45)
[2017-12-22] MEDS ORDERED: PANTOPRAZOLE SODIUM 40 MG VIAL IV PUSH SCH (20:00)
--- NOTE | 2017-12-22 20:10 | EKG ---
Date Performed: 12/22/2017 Time Performed: 15:59:10 PTAGE: 57 years EKG: Sinus rhythm WITH OCCASIONAL SUPRAVENTRICULAR PREMATURE COMPLEXES POSSIBLE LEFT ATRIAL ENLARGEMENT NONSPECIFIC T- WAVE ABNORMALITY ABNORMAL ECG PREVIOUS TRACING : 04/16/2017 07.36 Compared to previous tracing, nonspecific T wave abnormalit y is now evident. DOCTOR: Brennan Holley Interpretating Date/Time 12/22/2017 20:09:27
[2017-12-22] MEDS: SODIUM CHLORIDE 0.9% FLUSH 10 ML FLUSH IV FLUSH SCH (22:07)
[2017-12-22] MEDS: SODIUM CHLOR 0.9% 1000 ML INJ 1,000 ML IV SCH (22:08)
[2017-12-23] MEDS: MORPHINE SULFATE 2 MG/ML SYRINGE IV PUSH PRN ×4 (00:15→21:40)
[2017-12-23] MEDS ORDERED: GLUCAGON 1 MG/ML VIAL OTHER PRN (02:30)
[2017-12-23] MEDS ORDERED: DEXTROSE 50% IN WATER 50 ML VIAL(D50) IV PUSH PRN (02:30)
--- NOTE | 2017-12-23 02:30 | HHI.HP ---
[facility] Marylin Gonzalez MD Admission Diagnosis abdominal pain, vomiting, appendicolith, hypertensive urgency Diagnoses: Travel History International Travel<30 Days: No Contact w/Intl Traveler <30 Da: No Traveled to Known Affected Are: No History of Present Illness 57-year-old male with a past medical history significant for diabetes mellitus, hypertension, hyperlipidemia, BPH and CHF (no recent echo for comparison) presents to the emergency department evaluation of 2 days of abdominal pain. The patient reports he's had associated nausea/vomiting/diarrhea. He states he has been unable to keep any oral intake down. He endorses dizziness upon standing. Denies any chest pain or shortness of breath. No fever/chills. No lateralizing signs/symptoms. Review of Systems Except as stated in HPI: all other systems reviewed are Neg Past Family Social History Past Medical History Diabetes mellitus Hypertension Hyperlipidemia BPH CHF Past Surgical History Bowel perforation secondary to ulcer Right knee surgery Reported Medications Reported Meds & Active Scripts Active Reported Aspirin EC (Aspirin) 81 Mg Tabdr 81 Mg PO DAILY Carvedilol 3.125 Mg Tab 3.125 Mg PO BID Furosemide 40 Mg Tab 40 Mg PO DAILY Levemir Inj (Insulin Detemir) 1,000 unit/ 10 ML Vial 28 Units SQ DAILY Do not mix with any other Insulin. Lisinopril 40 Mg Tab 40 Mg PO DAILY Allergies: Coded Allergies: gabapentin (Unverified Allergy, Intermediate, Itching, 05/04/17) Family History Both parents with diabetes mellitus Social History Quit tobacco approximately one year ago. Occasional alcohol. Positive marijuana. Denies all other illicit drugs Physical Exam Vital Signs Vital Signs Date Time Temp Pulse Resp B/P (MAP) Pulse Ox O2 Delivery O2 Flow Rate FiO2 12/22/17 23:37 94 20 194/97 (129) 98 12/22/17 20:53 97.6 91 20 186/89 (121) 100 12/22/17 20:04 12/22/17 18:53 85 18 170/79 (109) 98 Room Air 12/22/17 17:47 69 18 195/95 (128) 100 Room Air 12/22/17 17:23 84 208/98 (134) 194/102 (132) 12/22/17 16:07 80 18 200/99 (132) 100 Room Air 12/22/17 16:02 81 18 188/95 (126) 82 18 208/97 (134) 84 18 210/93 (132) 12/22/17 15:07 94 18 224/95 (138) 98 Room Air 12/22/17 13:38 98.8 77 16 210/109 (142) 96 Physical Exam GENERAL: Shayy male lying in bed SKIN: No rashes, ecchymoses or lesions. Cool and dry. HEAD: Atraumatic. Normocephalic. No temporal or scalp tenderness. EYES: Pupils equal round and reactive. Extraocular motions intact. No scleral icterus. No injection or drainage. ENT: Nose without bleeding, purulent drainage or septal hematoma. Throat without erythema, tonsillar hypertrophy or exudate. Uvula midline. Airway patent. NECK: Trachea midline. No JVD or lymphadenopathy. Supple, nontender, no meningeal signs. CARDIOVASCULAR: Regular rate and rhythm without murmurs, gallops, or rubs. RESPIRATORY: Clear to auscultation. Breath sounds equal bilaterally. No wheezes , rales, or rhonchi. GASTROINTESTINAL: Abdomen soft, tender to palpation throughout, nondistended. No hepato-splenomegaly, or palpable masses. No guarding. No peritoneal signs. No rebound tenderness. MUSCULOSKELETAL: Extremities without clubbing, cyanosis, or edema. No joint tenderness, effusion, or edema noted. No calf tenderness. NEUROLOGICAL: Awake and alert. Cranial nerves II through XII intact. Motor and sensory grossly within normal limits. Normal speech. Laboratory Laboratory Tests Test 12/22/17 14:29 12/22/17 14:32 White Blood Count 8.2 Red Blood Count 4.34 Hemoglobin 11.0 Hematocrit 33.2 Mean Corpuscular Volume 76.5 Mean Corpuscular Hemoglobin 25.5 Mean Corpuscular Hemoglobin Concent 33.3 Red Cell Distribution Width 14.0 Platelet Count 156 Mean Platelet Volume 10.8 Neutrophils (%) (Auto) 71.5 Lymphocytes (%) (Auto) 19.3 Monocytes (%) (Auto) 7.5 Eosinophils (%) (Auto) 1.4 Basophils (%) (Auto) 0.3 Neutrophils # (Auto) 5.9 Lymphocytes # (Auto) 1.6 Monocytes # (Auto) 0.6 Eosinophils # (Auto) 0.1 Basophils # (Auto) 0.0 CBC Comment DIFF FINAL Differential Comment Urine Color LIGHT-YELLOW Urine Turbidity CLEAR Urine pH 6.5 Urine Specific [place] 1.012 Urine Protein 300 Urine Glucose (UA) 70 Urine Ketones NEG Urine Occult Blood SMALL Urine Nitrite NEG Urine Bilirubin NEG Urine Urobilinogen LESS THAN 2.0 Urine Leukocyte Esterase NEG Urine RBC 5 Urine WBC LESS THAN 1 Urine Squamous Epithelial Cells <1 Urine Hyaline Casts 3 Microscopic Urinalysis Comment CULT NOT INDICATED Blood Urea Nitrogen 22 Creatinine 2.90 Random Glucose 79 Total Protein 6.3 Albumin 2.5 Calcium Level 8.1 Alkaline Phosphatase 82 Aspartate Amino Transf (AST/SGOT) 22 Alanine Aminotransferase (ALT/SGPT) 27 Total Bilirubin 0.3 Sodium Level 145 Potassium Level 3.7 Chloride Level 115 Carbon Dioxide Level 24.3 Anion Gap 6 Estimat Glomerular Filtration Rate 27 Lipase 77 Lactic Acid Level 0.5 Result Diagram: 12/22/17 1429 12/22/17 1429 Caprini VTE Risk Assessment Caprini VTE Risk Assessment: No/Low Risk (score <= 1) Caprini Risk Assessment Model Point Value = 1 Point Value = 2 Point Value = 3 Point Value = 5 Age 41-60 Minor surgery BMI > 25 kg/m2 Swollen legs Varicose veins or History of unexplained or recurrent spontaneous Oral contraceptives or hormone replacement Sepsis (< 1 month) Serious lung disease, including pneumonia (< 1 month) Abnormal pulmonary function Acute myocardial infarction Congestive heart failure (< 1 month) History of inflammatory bowel disease Medical patient at bed rest Age 61-74 Arthroscopic surgery Major open surgery (> 45 min) Laparoscopic surgery (> 45 min) Malignancy Confined to bed (> 72 hours) Immobilizing plaster cast Central venous access Age >= 75 History of VTE Family history of VTE Factor V Leiden Prothrombin [id number] Lupus anticoagulant Anticardiolipin antibodies Elevated serum homocysteine Heparin-induced thrombocytopenia Other congenital or acquired thrombophilia Stroke (< 1 month) Elective arthroplasty Hip, pelvis, or leg fracture Acute spinal cord injury (< 1 month) Prophylaxis Regimen Total Risk Factor Score Risk Level Prophylaxis Regimen 0-1 Low Early ambulation 2 Moderate Order ONE of the following: *Sequential Compression Device (SCD) *Heparin 5000 units SQ BID 3-4 Higher Order ONE of the following medications: *Heparin 5000 units SQ TID *Enoxaparin/Lovenox 40 mg SQ daily (WT < 150 kg, CrCl > 30 mL/min) *Enoxaparin/Lovenox 30 mg SQ daily (WT < 150 kg, CrCl > 10-29 mL/min) *Enoxaparin/Lovenox 30 mg SQ BID (WT < 150 kg, CrCl > 30 mL/min) AND/OR *Sequential Compression Device (SCD) 5 or more Highest Order ONE of the following medications: *Heparin 5000 units SQ TID (Preferred with Epidurals) *Enoxaparin/Lovenox 40 mg SQ daily (WT < 150 kg, CrCl > 30 mL/min) *Enoxaparin/Lovenox 30 mg SQ daily (WT < 150 kg, CrCl > 10-29 mL/min) *Enoxaparin/Lovenox 30 mg SQ BID (WT < 150 kg, CrCl > 30 mL/min) AND *Sequential Compression Device (SCD) Assessment and Plan Assessment and Plan Assessment/plan: 1. Abdominal pain/nausea/vomiting CT of the abdomen/pelvis significant for appendicolith near the tip of the appendix General surgery consulted, appreciate recommendations Flagyl/Levaquin per Gen. surgery Serial abdominal exams 2. Diabetes mellitus Holding home Levemir as patient nothing by mouth Sliding scale insulin Monitor blood glucose 3. Hypertension/hyperlipidemia/BPH/CHF Continue home medications 4. Acute on chronic kidney disease Creatinine 2.90, baseline approximately 2 IV fluid hydration Monitor renal function FEN CLD Electrolytes: monitor and replete prn NS at 100 cc/hr Alisha Hall MD Dec 23, 2017 02:30
[2017-12-23 03:46] VITALS: BP 193/108; PULSE 91; RESP 20; TEMP 98.8; O2SAT 100
[2017-12-23] MEDS: SODIUM CHLOR 0.9% 1000 ML INJ 1,000 ML IV SCH (06:46)
--- NOTE | 2017-12-23 07:48 | HHI.PR ---
Subjective Remarks Follow up on patient with abdominal pain. Patient seen and examined. "I'm hungry. I want to eat." Patient states his abdominal pain has nearly resolved. He denies any nausea or vomiting overnight. Also reports diarrhea previous to admission but has resolved. Denies any fever or chills. Denies any chest pain or shortness of breath. Objective Vitals Vital Signs Date Time Temp Pulse Resp B/P (MAP) Pulse Ox O2 Delivery O2 Flow Rate FiO2 12/23/17 03:46 98.8 91 20 193/108 (136) 100 12/23/17 02:53 18 12/22/17 23:37 94 20 194/97 (129) 98 12/22/17 20:53 97.6 91 20 186/89 (121) 100 12/22/17 20:04 12/22/17 18:53 85 18 170/79 (109) 98 Room Air 12/22/17 17:47 69 18 195/95 (128) 100 Room Air 12/22/17 17:23 84 208/98 (134) 194/102 (132) 12/22/17 16:07 80 18 200/99 (132) 100 Room Air 12/22/17 16:02 81 18 188/95 (126) 82 18 208/97 (134) 84 18 210/93 (132) 12/22/17 15:07 94 18 224/95 (138) 98 Room Air 12/22/17 13:38 98.8 77 16 210/109 (142) 96 I/O 12/22/17 12/22/17 12/22/17 12/23/17 12/23/17 12/23/17 07:00 15:00 23:00 07:00 15:00 23:00 Intake Total 100 ml Balance 100 ml Intake Oral 100 ml Result Diagram: 12/22/17 1429 12/22/17 1429 Imaging Last Impressions Head CT 12/22/17 0000 Signed Impressions: Service Date/Time: December 17:29 - CONCLUSION: 1. No acute findings in the brain. Leeroy Norman MD Abdomen/Pelvis CT 12/22/17 0000 Signed Impressions: Service Date/Time: December 17:33 - CONCLUSION: 1. Interval interval development of appendicolith near the tip the appendix with overall appendiceal size 6 mm, upper limits normal. 2. Prostate enlargement indenting on the urinary bladder, similar in configuration to prior. Leeroy Norman MD Objective Remarks GENERAL: Well developed well nourished male lying in bed, INAD. Visually impaired. Awake and alert. SKIN: No rashes, ecchymoses or lesions. Cool and dry. HEAD: Atraumatic. Normocephalic. EYES: Pupils equal round and reactive. Extraocular motions intact. No scleral icterus. No injection or drainage. ENT: Nose without bleeding or purulent drainage. Airway patent. MMM. NECK: Trachea midline. CARDIOVASCULAR: Regular rate and rhythm without murmurs, gallops, or rubs. RESPIRATORY: Clear to auscultation. Breath sounds equal bilaterally. No wheezes , rales, or rhonchi. GASTROINTESTINAL: Abdomen soft, nondistended, mild diffuse tenderness to palpation in bilateral upper and LLQ. No tenderness to palpation over RLQ. No hepato-splenomegaly, or palpable masses. No guarding. No peritoneal signs. No rebound tenderness. (+)well healed circular scar over RLQ where patient states he had a drain placed previously. MUSCULOSKELETAL: Extremities without clubbing, cyanosis, or edema. No joint tenderness, effusion, or edema noted. No calf tenderness. NEUROLOGICAL: Awake and alert. Cranial nerves II through XII grossly intact. Motor and sensory grossly within normal limits. Normal speech. Medications and IVs Current Medications Medications (Trade) Dose Ordered Sig/Anila Route Start Time Stop Time Status Last Admin Sodium Chloride 1,000 ml @ 100 mls/hr Q10H IV 12/22/17 18:19 12/23/17 06:46 (NS Flush) 2 ml UNSCH PRN IV FLUSH 12/22/17 18:30 (NS Flush) 2 ml BID IV FLUSH 12/22/17 21:00 12/22/17 22:07 (Zofran Inj) 4 mg Q6H PRN IVP 12/22/17 18:30 12/23/17 00:32 (Narcan Inj) 0.4 mg UNSCH PRN IV PUSH 12/22/17 18:30 (Morphine Inj) 2 mg Q3H PRN IV PUSH 12/22/17 18:30 12/23/17 00:15 (Protonix Inj) 40 mg Q24H IV PUSH 12/22/17 20:00 12/22/17 20:46 (D50w (Vial) Inj) 50 ml UNSCH PRN IV PUSH 12/23/17 02:30 (Glucagon Inj) 1 mg UNSCH PRN OTHER 12/23/17 02:30 (NovoLOG SUPPLEMENTAL SCALE) 1 ACHS SLIDING SCALE SQ 12/23/17 08:00 (Coreg) 3.125 mg BID PO 12/23/17 09:00 (Lasix) 40 mg DAILY PO 12/23/17 09:00 (Prinivil) 40 mg DAILY PO 12/23/17 09:00 A/P Assessment and Plan Assessment/plan: Abdominal pain/nausea/vomiting, improved -CT of the abdomen/pelvis significant for appendicolith near the tip of the appendix -General surgery consulted, appreciate recommendations -Flagyl/Levaquin per Gen. surgery -Serial abdominal exams Diabetes mellitus -Holding home Levemir as patient nothing by mouth -Sliding scale insulin -Monitor blood glucose -obtain A1c level Hypertension, poorly controlled -Hold home ACEI and Lasix secondary to kidney injury -Clonidine as needed with parameters -Started on Procardia 30 mg XL -Continue to monitor BP and adjust treatment accordingly CHF, not in acute exacerbation -Continue on Coreg 3.125 mg p.o. twice daily -Monitor for any evidence of fluid overload Acute on chronic kidney disease -Creatinine 2.90, baseline approximately 2 -worsening, creatinine now 3.18 -Avoid nephrotoxic agents -hold home dose of lisinopril and Lasix -UA not indicative of UTI -obtain kidney US -obtain urine creatinine and sodium -Monitor renal function -repeat BMP in a.m. Anemia, microcytic, hypochromic -Chronic, stable -Obtain iron studies, B12, folate level -Stool Hemoccult ordered -Repeat CBC in a.m. Thrombocytopenia -No active bleeding -Continue to monitor platelet FEN Electrolytes: monitor and replete prn NS at 100 cc/hr Discharge Planning Discharge pending clinical improvement and general surgery clearance Ghislaine Ricks Dec 23, 2017 07:48
[2017-12-23 07:51] LABS: BASOPHIL % 0.3 % (0.0-2.0); EOSINOPHIL # 0.1 TH/MM3 (0-0.4); EOSINOPHIL % 1.6 % (0.0-4.0); HEMATOCRIT 33.4 % (39.0-51.0); HEMOGLOBIN 10.8 GM/DL (13.0-17.0); LYMPH % 14.8 % (9.0-44.0); LYMPHOCYTE # 1.2 TH/MM3 (1.0-4.8); MEAN CELL VOLUME 77.8 FL (80.0-100.0); MEAN CORPUSCULAR HEMOGLOBIN 25.2 PG (27.0-34.0); MEAN CORPUSCULAR HGB CONC 32.5 % (32.0-36.0); MONO % 8.1 % (0.0-8.0); MONOCYTE # 0.6 TH/MM3 (0-0.9); NEUT % 75.2 % (16.0-70.0); PLATELET COUNT 142 TH/MM3 (150-450); RED BLOOD COUNT 4.29 MIL/MM3 (4.50-5.90); RED CELL DISTRIBUTION WIDTH 14.4 % (11.6-17.2)
[2017-12-23 08:25] VITALS: BP 205/98; PULSE 68; RESP 20; TEMP 97.9; O2SAT 96
[2017-12-23] MEDS: cloNIDine HCL 0.1 MG TAB PO PRN (08:36)
[2017-12-23] MEDS: CARVEDILOL 3.125 MG TAB PO SCH ×2 (08:36→21:40)
[2017-12-23] MEDS: SODIUM CHLORIDE 0.9% FLUSH 10 ML FLUSH IV FLUSH SCH ×2 (09:00→21:40)
[2017-12-23] MEDS ORDERED: FUROSEMIDE 40 MG TAB PO SCH (09:00)
[2017-12-23] MEDS ORDERED: LISINOPRIL 20 MG TAB PO SCH (09:00)
[2017-12-23 09:18] LABS: BICARBONATE 21.8 MEQ/L (21.0-32.0); CALCIUM 8.1 MG/DL (8.5-10.1); CREATININE 3.18 MG/DL (0.60-1.30)
--- NOTE | 2017-12-23 09:18 | MB ---
cc: Gaurav Harris MD DATE: 12/22/2017 REASON FOR CONSULTATION: Appendicolith seen on CT scan. HISTORY OF PRESENT ILLNESS: This is a pleasant 57-year-old gentleman who came to the emergency room. He was found to have severe hypertension, blood pressure in the 200/102 range. He had some nausea, headache and had some exacerbation of his chronic back pain. During the workup, he had a CT scan done and the radiologist felt that there was an appendicolith in the tip of the appendix. The appendix was 6 mm. The patient did not have any pain in his right lower quadrant. He does have some discomfort in the left upper quadrant and back pain, which is chronic, which is exacerbated. He denies any fevers or chills. ER physicians have asked me to evaluate the patient because he is getting admitted for control of his malignant hypertension. PAST MEDICAL HISTORY: Significant for about 2 or 3 years ago, he had a perforated duodenal ulcer that was a microperforation. He developed a liver abscess that required drainage. He was in the hospital for a fairly long time and recovered from that. He does have the hypertension as above, diabetes and some pulmonary issues, CHF and some renal insufficiency. He has been in the hospital numerous times. REVIEW OF SYSTEMS: Mainly as above with his GI complaints, back pain, his headache and dizziness related to his hypertension. No urinary symptoms. ALLERGIES: HE IS ALLERGIC TO GABAPENTIN. MEDICATIONS: On outpatient are aspirin, carvedilol, Lasix, insulin, lisinopril. PHYSICAL EXAMINATION: GENERAL: He is lying on his side. He complains of back pain. He wants a more comfortable bed. He says it is making his pain worse. NECK: Supple. CHEST: Clear. HEART: Regular rate. VITAL SIGNS: His last set of vital signs shows a blood pressure of 170/79, sats of 98%, pulse 85, respiratory rate 18. ABDOMEN: Slightly obese, soft, with tenderness in the left upper quadrant. He does not have any surgical scars. He has no tenderness at McBurney's point. No tenderness in the right upper quadrant. EXTREMITIES: Moves all extremities well. No clubbing, cyanosis or edema. NEUROLOGIC: He is alert, oriented and somewhat distressed. LABORATORY DATA: He has a white count of 8, H and H 11 and 33. He has longstanding anemia while looking in the chart. Chemistry shows a lactic acid of 0.5. His creatinine was 2.9 in March, last year was 1.9. His albumin is 2.5. Lipase was 77. Urinalysis was essentially clear. He was H. pylori positive back 4 years ago, when he had perforation. IMAGING: CT imaging was reviewed from this visit and numerous visits before. The abscess drainage 2013. He has this little appendicolith. He does have a significant sized prostate as well. ASSESSMENT AND PLAN: This is a 57-year-old gentleman who has hypertension, diabetes, chronic back pain, with exacerbation of uncontrolled hypertension. He had some symptomatology consistent with with his headache and dizziness. All of his abdominal pain appears to be localized on the left side, left upper. I do not get any clinical picture of appendicitis with him at this point. If he did have appendicitis, I would want his blood pressure better controlled. For this reason, we will just give him empiric antibiotics and watch him. If he localized to the right lower quadrant or has a clinical change to raise suspicion of appendicitis, would proceed with appendectomy. I will cover him for gastric problems like another perforation because of his history. Hold his aspirin. Will follow with you during this admission. MD DELORIS Doyle/CATRACHITA , 07:37 PM , 07:59 PM
[2017-12-23] MEDS: INSULIN ASPART SUPPLEMENTAL SCALE SQ SCH ×3 (09:37→17:00)
[2017-12-23 17:02] VITALS: BP 193/89; PULSE 88; RESP 20; TEMP 98.9; O2SAT 96
[2017-12-23] MEDS ORDERED: NIFEdipine 30 MG SUSTAINED RELEASE TAB PO ONE (17:30)
--- NOTE | 2017-12-23 17:31 | HHI.PR ---
cc: Jorge Jackson MD Subjective Subjective Notes DAILY PROGRESS NOTE FOR SURGICAL ATTENDING, DR. JORGE JACKSON Patient has no abdominal pain Blood pressure difficult to control Tolerating a regular diet Objective Vitals/I&O Vital Signs Date Time Temp Pulse Resp B/P (MAP) Pulse Ox O2 Delivery O2 Flow Rate FiO2 12/23/17 17:02 98.9 88 20 193/89 (123) 96 12/22/17 18:53 Room Air Labs Laboratory Tests Test 12/23/17 06:19 White Blood Count 8.0 Red Blood Count 4.29 Hemoglobin 10.8 Hematocrit 33.4 Mean Corpuscular Volume 77.8 Mean Corpuscular Hemoglobin 25.2 Mean Corpuscular Hemoglobin Concent 32.5 Red Cell Distribution Width 14.4 Platelet Count 142 Mean Platelet Volume 11.0 Neutrophils (%) (Auto) 75.2 Lymphocytes (%) (Auto) 14.8 Monocytes (%) (Auto) 8.1 Eosinophils (%) (Auto) 1.6 Basophils (%) (Auto) 0.3 Neutrophils # (Auto) 6.0 Lymphocytes # (Auto) 1.2 Monocytes # (Auto) 0.6 Eosinophils # (Auto) 0.1 Basophils # (Auto) 0.0 CBC Comment DIFF FINAL Differential Comment Blood Urea Nitrogen 21 Creatinine 3.18 Random Glucose 165 Calcium Level 8.1 Sodium Level 142 Potassium Level 3.7 Chloride Level 111 Carbon Dioxide Level 21.8 Anion Gap 9 Estimat Glomerular Filtration Rate 24 Radiology Last Impressions Head CT 12/22/17 0000 Signed Impressions: Service Date/Time: December 17:29 - CONCLUSION: 1. No acute findings in the brain. Leeroy Norman MD Abdomen/Pelvis CT 12/22/17 Signed Impressions: Service Date/Time: December 17:33 - CONCLUSION: 1. Interval interval development of appendicolith near the tip the appendix with overall appendiceal size 6 mm, upper limits normal. 2. Prostate enlargement indenting on the urinary bladder, similar in configuration to prior. 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 JORGE JACKSON I I attest that I had a [id number] encounter with the patient on the same day, and personally performed and documented my assessment and findings in the medical record. The following services were provided during this hospital visit: Chart data review, vital sign assessments/reviewing monitor data Review of consultations notes if present. Medication orders/review and/or management Ordering and/or reviewing lab tests Ordering and/or interpreting/reviewing x-rays and/or diagnostic studies Care of the patient and discussion of the patient with the care team Documentation time To help prompt me to consider important information that might be impacting today's encounter and assessment, Information from prior notes written by myself or my colleagues may have been "brought forward/copy and pasted" into today's note. Jorge Jackson MD Dec 23, 2017 17:31
--- NOTE | 2017-12-23 19:10 | RADRPT ---
EXAM DATE/TIME: 12/23/2017 18:27 [place] COMPARISON: No previous studies available for comparison. EXTERNAL COMPARISON : [facility], US BILATERAL RENAL & BLADDER, May 26, 2017 INDICATIONS : Increased BUN/Creatinine. MEDICAL HISTORY : Renal insufficiency, chronic. Congestive heart failure. Hypertension. Blindness. Pneumonia. Sepsis. U lcer. Mumps. BPH. Rheumatoid arthritis. Diabetes. Measles. SURGICAL HISTORY : Right knee surgery. Liver abscess drainage. ENCOUNTER: Subsequent ACUITY: 1 day PAIN SCORE: 0/10 LOCATION: Bilateral flank MEASUREMENTS: RIGHT KIDNEY: 12.1 x 6.6 x 6.5 cm LEFT KIDNEY: 12.8 x 5.9 x 6.5 cm FINDINGS: RIGHT KIDNEY: Renal cortex is normal in thickness and echotexture. 1.2 cm cyst mass. LEFT KIDNEY: Renal cortex is normal in thickness and echotexture. No hydronephrosis, stone, or mass. BLADDER: Mild bladder wall thickening CONCLUSION: Negative for mass or hydronephrosis. Mild bladder wall thickness. Kidneys are of normal size. Karthik Dallas MD FACR on December 23, 2017 at 19:06 Board Certified Radiologist. This report was verified electronically.
[2017-12-23 20:45] LABS: IRON (FE) 69 MCG/DL (65-175)
[2017-12-23 21:12] LABS: % SATURATION IRON PROFILE 28.3 % (20-50); FERRITIN 84 NG/ML (26-388); FOLATE 8.5 NG/ML (3.1-17.5); TOTAL IRON BINDING CAPACITY 244 MCG/DL (250-450)
[2017-12-23 23:48] VITALS: BP 173/85; PULSE 74; RESP 18; TEMP 98.1; O2SAT 97
[2017-12-24] VITALS (7 sets, daily range): BP systolic 180–188; BP diastolic 84–100; PULSE 73–81; RESP 16–20; TEMP 97.8–98; O2SAT 96–97
[2017-12-24] MEDS: INSULIN DETEMIR 100 UNITS/ML VIAL SQ SCH ×3 (01:43→21:53)
[2017-12-24] MEDS: INSULIN ASPART SUPPLEMENTAL SCALE SQ SCH ×5 (01:43→21:53)
[2017-12-24] MEDS: MORPHINE SULFATE 2 MG/ML SYRINGE IV PUSH PRN ×2 (01:43→09:29)
[2017-12-24] MEDS: cloNIDine HCL 0.1 MG TAB PO PRN (03:53)
[2017-12-24 08:24] LABS: HEMATOCRIT 34.5 % (39.0-51.0); HEMOGLOBIN 11.3 GM/DL (13.0-17.0); MEAN CELL VOLUME 77.2 FL (80.0-100.0); MEAN CORPUSCULAR HEMOGLOBIN 25.3 PG (27.0-34.0); MEAN CORPUSCULAR HGB CONC 32.8 % (32.0-36.0); MEAN PLATELET VOLUME 10.9 FL (7.0-11.0); PLATELET COUNT 157 TH/MM3 (150-450); RED BLOOD COUNT 4.47 MIL/MM3 (4.50-5.90); RED CELL DISTRIBUTION WIDTH 14.3 % (11.6-17.2); WHITE BLOOD COUNT 7.5 TH/MM3 (4.0-11.0)
[2017-12-24 08:36] LABS: BICARBONATE 22.7 MEQ/L (21.0-32.0); CALCIUM 8.6 MG/DL (8.5-10.1); CREATININE 3.23 MG/DL (0.60-1.30)
[2017-12-24] MEDS: SODIUM CHLORIDE 0.9% FLUSH 10 ML FLUSH IV FLUSH SCH ×2 (09:00→21:53)
[2017-12-24] MEDS ORDERED: NIFEdipine 30 MG SUSTAINED RELEASE TAB PO SCH (09:00)
[2017-12-24] MEDS: CARVEDILOL 3.125 MG TAB PO SCH (09:30)
[2017-12-24] MEDS: PANTOPRAZOLE SOD 40 MG DELAYED RELEASE TAB PO SCH (09:30)
[2017-12-24] MEDS ORDERED: CARVEDILOL 3.125 MG TAB PO ONE (12:00)
[2017-12-24 13:46] LABS: HEMOGLOBIN A1C 8.2 % (4.3-6.0)
--- NOTE | 2017-12-24 16:13 | HHI.PR ---
Subjective Remarks Blood pressure noted to be elevated with a systolic blood pressure in the 180s. . Patient complained of back pain. The patient denies abdominal pain, nausea, vomiting or diarrhea. Next Objective Vitals Vital Signs Date Time Temp Pulse Resp B/P (MAP) Pulse Ox O2 Delivery O2 Flow Rate FiO2 12/24/17 08:41 97.8 73 20 188/100 (129) 96 12/24/17 04:30 98.0 76 18 180/85 (116) 97 12/24/17 03:39 18 12/23/17 23:48 98.1 74 18 173/85 (114) 97 12/23/17 17:02 98.9 88 20 193/89 (123) 96 I/O 12/23/17 12/23/17 12/23/17 12/24/17 12/24/17 12/24/17 07:00 15:00 23:00 07:00 15:00 23:00 Intake Total 100 ml 200 ml Balance 100 ml 200 ml Intake Oral 100 ml 200 ml # Voids 4 Result Diagram: 12/24/17 0708 12/24/17 0708 Imaging Last Impressions Renal Ultrasound 12/23/17 0000 Signed Impressions: Service Date/Time: Saturday, December 23, 2017 18:27 - CONCLUSION: Negative for mass or hydronephrosis. Mild bladder wall thickness. Kidneys are of normal size. Karthik Dallas MD FACR Head CT 12/22/17 0000 Signed Impressions: Service Date/Time: December 17:29 - CONCLUSION: 1. No acute findings in the brain. Leeroy Norman MD Abdomen/Pelvis CT 12/22/17 0000 Signed Impressions: Service Date/Time: December 17:33 - CONCLUSION: 1. Interval interval development of appendicolith near the tip the appendix with overall appendiceal size 6 mm, upper limits normal. 2. Prostate enlargement indenting on the urinary bladder, similar in configuration to prior. Leeroy Norman MD Objective Remarks AAO 3. NAD Clear lungs bilaterally S1-S2 present with regular rate and rhythm, no murmurs gallops. Extremities without edema. Mild tenderness to palpation of lumbar spine. Medications and IVs Current Medications Medications (Trade) Dose Ordered Sig/Anila Route Start Time Stop Time Status Last Admin (NS Flush) 2 ml UNSCH PRN IV FLUSH 12/22/17 18:30 (NS Flush) 2 ml BID IV FLUSH 12/22/17 21:00 12/24/17 09:00 (Zofran Inj) 4 mg Q6H PRN IVP 12/22/17 18:30 12/23/17 00:32 (Narcan Inj) 0.4 mg UNSCH PRN IV PUSH 12/22/17 18:30 (Morphine Inj) 2 mg Q3H PRN IV PUSH 12/22/17 18:30 12/24/17 09:29 (D50w (Vial) Inj) 50 ml UNSCH PRN IV PUSH 12/23/17 02:30 (Glucagon Inj) 1 mg UNSCH PRN OTHER 12/23/17 02:30 (NovoLOG SUPPLEMENTAL SCALE) 1 ACHS SLIDING SCALE SQ 12/23/17 08:00 12/24/17 08:00 (Lasix) 40 mg DAILY PO 12/23/17 09:00 Future Hold (Prinivil) 40 mg DAILY PO 12/23/17 09:00 Future Hold (Levemir Inj) 5 units Q12HR SQ 12/23/17 21:00 12/24/17 09:29 (Protonix) 40 mg DAILY PO 12/24/17 09:00 12/24/17 09:30 (Coreg) 6.25 mg Q12HR PO 12/24/17 21:00 (Procardia Xl) 60 mg DAILY PO 12/25/17 09:00 (Catapres) 0.1 mg Q6H PRN PO 12/24/17 17:00 A/P Assessment and Plan Abdominal pain/nausea/vomiting, improved -CT of the abdomen/pelvis significant for appendicolith near the tip of the appendix -General surgery consulted, appreciate recommendations -Flagyl/Levaquin per Gen. surgery -12/24 patient denies abdominal pain, tolerating diet. Cleared to be discharged by general surgery. IV antibiotics discontinued 12/22.. Diabetes mellitus -Home insulin Levemir was held since patient was made n.p.o. -Placed on insulin sliding scale. -Monitor blood glucose - 12/24 hemoglobin A1c 8.2. Diabetes is uncontrolled. Blood sugar is acceptable. Continue SSI, Levemir resumed on 12/23. Continue. Hypertension, poorly controlled -Held ACEI and Lasix secondary to kidney injury -Clonidine as needed with parameters -Started on Procardia 30 mg XL -Continue to monitor BP and adjust treatment accordingly 12/24 increase Procardia to 60 mg daily. Increase Coreg to 6.25 mg p.o. every 12 hours. CHF, not in acute exacerbation -Continue on Coreg 3.125 mg p.o. twice daily -Monitor for any evidence of fluid overload Acute on chronic kidney disease -Creatinine 2.90, baseline approximately 2.1 to 2.5 -Avoid nephrotoxic agents -hold home dose of lisinopril and Lasix -UA not indicative of UTI -Monitor renal function -repeat BMP in a.m. 12/24 ultrasound of the kidneys negative for mass or hydronephrosis. Mild bladder wall thickness. Start gentle IV fluids. Consult nephrology since patient's creatinine is trending up and today is 3.23. Monitor BUN/creatinine, strict I's and O's. Anemia, microcytic, hypochromic -Chronic, stable -Obtain iron studies, B12, folate level -Stool Hemoccult ordered -12/24 hemoglobin is stable. Anemia is chronic. Iron studies shows normal iron and percent consideration. Anemia likely secondary to chronic kidney disease. Thrombocytopenia -No active bleeding -Continue to monitor platelet -Resolved. FEN Electrolytes: monitor and replete prn Resume normal saline at 84 cc an hour. Discharge Planning Continue to monitor in the observation unit. Patient creatinine trending up and blood pressure severely elevated. Maximino San MD Dec 24, 2017 16:13
[2017-12-24] MEDS: SODIUM CHLOR 0.9% 1000 ML INJ 1,000 ML IV SCH (17:30)
[2017-12-24] MEDS: ASPIRIN EC 81 MG TABEC PO SCH (18:30)
[2017-12-24] MEDS: CARVEDILOL 6.25 MG TAB PO SCH (21:53)
[2017-12-24] MEDS: diphenhydrAMINE HCL 25 MG CAP PO PRN (21:53)
[2017-12-25 02:51] VITALS: BP 196/93; PULSE 76; RESP 16; TEMP 98.3; O2SAT 96
[2017-12-25] MEDS: cloNIDine HCL 0.1 MG TAB PO PRN ×2 (03:00→19:48)
[2017-12-25] MEDS: INSULIN ASPART SUPPLEMENTAL SCALE SQ SCH ×4 (08:00→21:58)
[2017-12-25 08:16] VITALS: BP 198/92; PULSE 79; RESP 20; TEMP 97.9; O2SAT 96
[2017-12-25] MEDS: ASPIRIN EC 81 MG TABEC PO SCH (08:34)
[2017-12-25] MEDS: CARVEDILOL 6.25 MG TAB PO SCH ×2 (08:34→21:42)
[2017-12-25] MEDS: PANTOPRAZOLE SOD 40 MG DELAYED RELEASE TAB PO SCH (08:35)
[2017-12-25] MEDS: SODIUM CHLORIDE 0.9% FLUSH 10 ML FLUSH IV FLUSH SCH ×2 (08:35→21:42)
[2017-12-25] MEDS ORDERED: NIFEdipine 30 MG SUSTAINED RELEASE TAB PO SCH (09:00)
[2017-12-25] MEDS: INSULIN DETEMIR 100 UNITS/ML VIAL SQ SCH ×2 (09:39→21:58)
[2017-12-25] MEDS ORDERED: DOXAZOSIN MESYLATE 2 MG TAB PO ONE (12:00)
--- NOTE | 2017-12-25 12:02 | HHI.PR ---
Subjective Remarks Patient's blood pressure still severely elevated. The patient denies any chest pain, shortness of breath, headache, dizziness. Creatinine trending up. Objective Vitals Vital Signs Date Time Temp Pulse Resp B/P (MAP) Pulse Ox O2 Delivery O2 Flow Rate FiO2 12/25/17 08:16 97.9 79 20 198/92 (127) 96 12/25/17 02:51 98.3 76 16 196/93 (127) 96 12/24/17 22:06 98.0 80 16 188/98 (128) 97 12/24/17 20:00 78 12/24/17 19:16 98.0 81 20 186/95 (125) 97 12/24/17 16:35 97.9 80 20 186/84 (118) 96 I/O 12/24/17 12/24/17 12/24/17 12/25/17 12/25/17 12/25/17 07:00 15:00 23:00 07:00 15:00 23:00 Intake Total 800 ml Output Total 1200 ml 800 ml Balance -400 ml -800 ml Intake Oral 800 ml Output Urine Total 1200 ml 800 ml Stool Total 0 ml Result Diagram: 12/24/17 0708 12/24/17 0708 Imaging Last Impressions Renal Ultrasound 12/23/17 0000 Signed Impressions: Service Date/Time: Saturday, December 23, 2017 18:27 - CONCLUSION: Negative for mass or hydronephrosis. Mild bladder wall thickness. Kidneys are of normal size. Karthik Dallas MD FACR Head CT 12/22/17 0000 Signed Impressions: Service Date/Time: December 17:29 - CONCLUSION: 1. No acute findings in the brain. Leeroy Norman MD Abdomen/Pelvis CT 12/22/17 0000 Signed Impressions: Service Date/Time: December 17:33 - CONCLUSION: 1. Interval interval development of appendicolith near the tip the appendix with overall appendiceal size 6 mm, upper limits normal. 2. Prostate enlargement indenting on the urinary bladder, similar in configuration to prior. Leeroy Norman MD Objective Remarks AAO 3. NAD Clear lungs bilaterally S1-S2 present with regular rate and rhythm, no murmurs gallops. Extremities without edema. Mild tenderness to palpation of lumbar spine. Procedures None Medications and IVs Current Medications Medications (Trade) Dose Ordered Sig/Anila Route Start Time Stop Time Status Last Admin (NS Flush) 2 ml UNSCH PRN IV FLUSH 12/22/17 18:30 (NS Flush) 2 ml BID IV FLUSH 12/22/17 21:00 12/24/17 21:53 (Zofran Inj) 4 mg Q6H PRN IVP 12/22/17 18:30 12/23/17 00:32 (Narcan Inj) 0.4 mg UNSCH PRN IV PUSH 12/22/17 18:30 (Morphine Inj) 2 mg Q3H PRN IV PUSH 12/22/17 18:30 12/24/17 09:29 (D50w (Vial) Inj) 50 ml UNSCH PRN IV PUSH 12/23/17 02:30 (Glucagon Inj) 1 mg UNSCH PRN OTHER 12/23/17 02:30 (NovoLOG SUPPLEMENTAL SCALE) 1 ACHS SLIDING SCALE SQ 12/23/17 08:00 12/24/17 21:53 (Lasix) 40 mg DAILY PO 12/23/17 09:00 Future Hold (Prinivil) 40 mg DAILY PO 12/23/17 09:00 Future Hold (Levemir Inj) 5 units Q12HR SQ 12/23/17 21:00 12/25/17 09:39 (Protonix) 40 mg DAILY PO 12/24/17 09:00 12/25/17 08:35 (Coreg) 6.25 mg Q12HR PO 12/24/17 21:00 12/25/17 08:34 (Procardia Xl) 60 mg DAILY PO 12/25/17 09:00 12/25/17 08:35 (Catapres) 0.1 mg Q6H PRN PO 12/24/17 17:00 12/25/17 03:00 Sodium Chloride 1,000 ml @ 84 mls/hr [id number] IV 12/24/17 17:30 12/24/17 17:30 (Ecotrin Ec) 81 mg DAILY PO 12/24/17 17:30 12/25/17 08:34 (Benadryl) 25 mg Q4H PRN PO 12/24/17 21:30 12/24/17 21:53 A/P Problem List: (1) Uncontrolled hypertension ICD Code: I10 - Essential (primary) hypertension Status: Acute (2) Abdominal pain ICD Code: R10.9 - Unspecified abdominal pain Status: Resolved (3) Vomiting ICD Code: R11.10 - Vomiting, unspecified Status: Resolved (4) POLI (acute kidney injury) ICD Code: N17.9 - Acute kidney failure, unspecified Status: Acute (5) CKD (chronic kidney disease) stage 3, GFR 30-59 ml/min ICD Code: N18.3 - Chronic kidney disease, stage 3 (moderate) Status: Chronic (6) Anemia ICD Code: D64.9 - Anemia, unspecified Status: Chronic (7) Thrombocytopenia ICD Code: D69.6 - Thrombocytopenia, unspecified Status: Resolved Assessment and Plan Abdominal pain/nausea/vomiting, improved -CT of the abdomen/pelvis significant for appendicolith near the tip of the appendix -General surgery consulted, appreciate recommendations -Flagyl/Levaquin per Gen. surgery -12/24 patient denies abdominal pain, tolerating diet. Cleared to be discharged by general surgery. IV antibiotics discontinued 12/22.. Diabetes mellitus -Home insulin Levemir was held since patient was made n.p.o. -Placed on insulin sliding scale. -Monitor blood glucose - 12/24 hemoglobin A1c 8.2. Diabetes is uncontrolled. Blood sugar is acceptable. Continue SSI, Levemir resumed on 12/23. Continue. Hypertension, poorly controlled -Held ACEI and Lasix secondary to kidney injury -Clonidine as needed with parameters -Started on Procardia 30 mg XL -Continue to monitor BP and adjust treatment accordingly 12/24 increase Procardia to 60 mg daily. Increase Coreg to 6.25 mg p.o. every 12 hours. 12/25 blood pressure still severely elevated. Increase Procardia XL to 90 mg p.o. daily. Continue Coreg 6 at 6.25 mg p.o. every 12 hours. Start Cardura 2 mg p.o. daily. Continue clonidine as needed. CHF, not in acute exacerbation -Continue on Coreg 3.125 mg p.o. twice daily -Monitor for any evidence of fluid overload Acute on chronic kidney disease -Creatinine 2.90, baseline approximately 2.1 to 2.5 -Avoid nephrotoxic agents -hold home dose of lisinopril and Lasix -UA not indicative of UTI -Monitor renal function -repeat BMP in a.m. 12/24 ultrasound of the kidneys negative for mass or hydronephrosis. Mild bladder wall thickness. Start gentle IV fluids. Consult nephrology since patient's creatinine is trending up and today is 3.23. Monitor BUN/creatinine, strict I's and O's. 12/25 nephrology consulted. Recommendations pending. Monitor BMP, history I' s and O's, avoid nephrotoxins. Continue IV fluids. Anemia, microcytic, hypochromic -Chronic, stable -Obtain iron studies, B12, folate level -Stool Hemoccult ordered -12/24 hemoglobin is stable. Anemia is chronic. Iron studies shows normal iron and percent consideration. Anemia likely secondary to chronic kidney disease. Thrombocytopenia -No active bleeding -Continue to monitor platelet -Resolved. Monitor CBC per FEN Electrolytes: monitor and replete prn Resume normal saline at 84 cc an hour. Discharge Planning Continue to monitor in the observation unit. Patient creatinine trending up and blood pressure severely elevated. Problem Qualifiers (1) Vomiting: Qualified Codes: R11.10 - Vomiting, unspecified (2) Anemia: Qualified Codes: N18.3 - Chronic kidney disease, stage 3 (moderate); D63.1 - Anemia in chronic kidney disease Maximino San MD Dec 25, 2017 12:02
--- NOTE | 2017-12-25 12:04 | PD.CONS ---
HPI Service Nephrology Consult Requested By Dr. Liriano Reason for Consult Chronic kidney disease Primary Care Physician Marylin Gonzalez MD History of Present Illness Patient is a 57-year-old -Beninese male with history of chronic renal disease, diabetes, blindness, diabetic retinopathy came in with abdominal pain, nausea and vomiting, patient is feeling better but his creatinine is high at 3.24: Patient states that he has seen urologist Dr. 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 Granados followed him recently creatinine of 2.4-2.5 range. Review of Systems Constitutional: COMPLAINS OF: Fatigue Eyes: COMPLAINS OF: Vision loss Gastrointestinal: COMPLAINS OF: Abdominal pain, Nausea, Vomiting Past Family Social History Allergies: Coded Allergies: gabapentin (Unverified Allergy, Intermediate, Itching, 05/04/17) Past Medical History Diabetes mellitus Hypertension Hyperlipidemia BPH CHF Past Surgical History Eye surgery Bowel perforation secondary to ulcer Right knee surgery Reported Medications Reported Meds & Active Scripts Active Reported Aspirin EC (Aspirin) 81 Mg Tabdr 81 Mg PO DAILY Carvedilol 3.125 Mg Tab 3.125 Mg PO BID Furosemide 40 Mg Tab 40 Mg PO DAILY Levemir Inj (Insulin Detemir) 1,000 unit/ 10 ML Vial 28 Units SQ DAILY Do not mix with any other Insulin. Lisinopril 40 Mg Tab 40 Mg PO DAILY Active Ordered Medications Current Medications Medications (Trade) Dose Ordered Sig/Anila Route Start Time Stop Time Status Last Admin (NS Flush) 2 ml UNSCH PRN IV FLUSH 12/22/17 18:30 (NS Flush) 2 ml BID IV FLUSH 12/22/17 21:00 12/24/17 21:53 (Zofran Inj) 4 mg Q6H PRN IVP 12/22/17 18:30 12/23/17 00:32 (Narcan Inj) 0.4 mg UNSCH PRN IV PUSH 12/22/17 18:30 (Morphine Inj) 2 mg Q3H PRN IV PUSH 12/22/17 18:30 12/24/17 09:29 (D50w (Vial) Inj) 50 ml UNSCH PRN IV PUSH 12/23/17 02:30 (Glucagon Inj) 1 mg UNSCH PRN OTHER 12/23/17 02:30 (NovoLOG SUPPLEMENTAL SCALE) 1 ACHS SLIDING SCALE SQ 12/23/17 08:00 4/8/18 13:59 (Lasix) 40 mg DAILY PO 12/23/17 09:00 Future Hold (Prinivil) 40 mg DAILY PO 12/23/17 09:00 Future Hold (Levemir Inj) 5 units Q12HR SQ 12/23/17 21:00 12/25/17 09:39 (Protonix) 40 mg DAILY PO 12/24/17 09:00 12/25/17 08:35 (Coreg) 6.25 mg Q12HR PO 12/24/17 21:00 12/25/17 08:34 (Catapres) 0.1 mg Q6H PRN PO 12/24/17 17:00 12/25/17 03:00 Sodium Chloride 1,000 ml @ 84 mls/hr [id number] IV 12/24/17 17:30 12/25/17 14:01 (Ecotrin Ec) 81 mg DAILY PO 12/24/17 17:30 12/25/17 08:34 (Benadryl) 25 mg Q4H PRN PO 12/24/17 21:30 12/24/17 21:53 (Procardia Xl) 90 mg DAILY PO 12/26/17 09:00 (Cardura) 2 mg DAILY PO 12/26/17 09:00 Family History Noncontributory Social History Denies smoking or alcohol Physical Exam Vital Signs Vital Signs Date Time Temp Pulse Resp B/P (MAP) Pulse Ox O2 Delivery O2 Flow Rate FiO2 12/25/17 08:16 97.9 79 20 198/92 (127) 96 12/25/17 02:51 98.3 76 16 196/93 (127) 96 12/24/17 22:06 98.0 80 16 188/98 (128) 97 12/24/17 20:00 78 12/24/17 19:16 98.0 81 20 186/95 (125) 97 12/24/17 16:35 97.9 80 20 186/84 (118) 96 Physical Exam GENERAL: Well-nourished, well-developed patient. SKIN: Warm and dry. HEAD: Normocephalic. EYES: Patient is blind NECK: Supple, trachea midline. No JVD or lymphadenopathy. CARDIOVASCULAR: Regular rate and rhythm without murmurs, gallops, or rubs. RESPIRATORY: Breath sounds equal bilaterally. No accessory muscle use. GASTROINTESTINAL: Abdomen soft, non-tender, nondistended. EXTREMITIES: No cyanosis, or edema. NEUROLOGICAL: Awake, alert, and oriented x 3. Non-focal. Result Diagram: 12/24/17 0708 12/24/17 0708 Imaging Last Impressions Renal Ultrasound 12/23/17 0000 Signed Impressions: Service Date/Time: Saturday, December 23, 2017 18:27 - CONCLUSION: Negative for mass or hydronephrosis. Mild bladder wall thickness. Kidneys are of normal size. Karthik Dallas MD FACR Head CT 12/22/17 0000 Signed Impressions: Service Date/Time: December 17:29 - CONCLUSION: 1. No acute findings in the brain. Leeroy Norman MD Abdomen/Pelvis CT 12/22/17 0000 Signed Impressions: Service Date/Time: December 17:33 - CONCLUSION: 1. Interval interval development of appendicolith near the tip the appendix with overall appendiceal size 6 mm, upper limits normal. 2. Prostate enlargement indenting on the urinary bladder, similar in configuration to prior. Leeroy Norman MD Assessment and Plan Problem List: (1) ARF (acute renal failure) ICD Codes: N17.9 - ARF (acute renal failure) Status: Acute Plan: He has ARF/CKD reviewed labs Proteinuria suggested Diabetic Kidney disease Protein/cr ratio SPEP LAUREL Avoid Nephrotoxins Blood pressure controlled nifedipine given I will add hydralazine Dr. Granados to follow (2) CKD (chronic kidney disease) stage 3, GFR 30-59 ml/min ICD Codes: N18.3 - Chronic kidney disease, stage 3 (moderate) Status: Chronic Plan: Likely due to diabetes (3) Diabetes mellitus ICD Codes: E11.9 - Diabetes mellitus Status: Chronic Plan: On insulin (4) Abdominal pain ICD Codes: R10.9 - Unspecified abdominal pain Status: Resolved (5) Uncontrolled hypertension ICD Codes: I10 - Essential (primary) hypertension Status: Acute Plan: Blood pressure labile and hydralazine Patient was on lisinopril this has been held due to acute renal failure Mary Julian MD Dec 25, 2017 12:04
[2017-12-25 12:25] VITALS: BP 189/90; PULSE 75; RESP 20; TEMP 98.2; O2SAT 98
[2017-12-25] MEDS: SODIUM CHLOR 0.9% 1000 ML INJ 1,000 ML IV SCH ×2 (14:01→17:20)
[2017-12-25 14:37] LABS: BICARBONATE 23.8 MEQ/L (21.0-32.0); CALCIUM 7.9 MG/DL (8.5-10.1); CREATININE 3.24 MG/DL (0.60-1.30)
[2017-12-25 16:27] VITALS: BP 199/100; PULSE 80; RESP 20; TEMP 98.2; O2SAT 96
[2017-12-25] MEDS: hydrALAZINE HCL 25 MG TAB PO SCH ×2 (17:37→21:42)
[2017-12-25 19:23] VITALS: BP 173/89; PULSE 85; RESP 16; TEMP 97.9; O2SAT 96
[2017-12-25] MEDS: MORPHINE SULFATE 2 MG/ML SYRINGE IV PUSH PRN (19:38)
[2017-12-25] MEDS: diphenhydrAMINE HCL 25 MG CAP PO PRN (19:38)
[2017-12-25 22:54] VITALS: PULSE 76
[2017-12-26] VITALS (11 sets, daily range): BP systolic 132–177; BP diastolic 66–87; PULSE 65–83; RESP 15–16; TEMP 98–98.7; O2SAT 93–98
[2017-12-26] MEDS: SODIUM CHLOR 0.9% 1000 ML INJ 1,000 ML IV SCH (00:50)
[2017-12-26] MEDS: hydrALAZINE HCL 25 MG TAB PO SCH ×3 (06:04→20:41)
[2017-12-26 06:54] LABS: COMPLEMENT C3 127 MG/DL (90-180); COMPLEMENT C4 28 MG/DL (10-40)
[2017-12-26 07:19] LABS: BICARBONATE 25.9 MEQ/L (21.0-32.0); CALCIUM 8.2 MG/DL (8.5-10.1); CREATININE 3.26 MG/DL (0.60-1.30)
[2017-12-26] MEDS: PANTOPRAZOLE SOD 40 MG DELAYED RELEASE TAB PO SCH (08:05)
[2017-12-26] MEDS: ASPIRIN EC 81 MG TABEC PO SCH (08:05)
[2017-12-26] MEDS: CARVEDILOL 6.25 MG TAB PO SCH ×2 (08:05→20:41)
[2017-12-26] MEDS: NIFEdipine 90 MG SUSTAINED RELEASE TAB PO SCH (08:05)
[2017-12-26] MEDS: INSULIN DETEMIR 100 UNITS/ML VIAL SQ SCH ×2 (08:05→20:42)
[2017-12-26] MEDS: DOXAZOSIN MESYLATE 2 MG TAB PO SCH (08:05)
[2017-12-26] MEDS: SODIUM CHLORIDE 0.9% FLUSH 10 ML FLUSH IV FLUSH SCH ×2 (08:06→20:42)
[2017-12-26] MEDS: MORPHINE SULFATE 2 MG/ML SYRINGE IV PUSH PRN ×2 (08:06→18:20)
[2017-12-26] MEDS: INSULIN ASPART SUPPLEMENTAL SCALE SQ SCH ×4 (09:32→20:43)
[2017-12-26] MEDS: cloNIDine HCL 0.1 MG TAB PO PRN (11:20)
--- NOTE | 2017-12-26 15:30 | HHI.NPPN ---
Subjective Renal Failure: Chronic, Acute, Stage III Interval History Renal function is stable. Blood pressure control is better. (Britney Perry) Review of Systems Eyes Eyes Remarks blind at baseline (Britney Perry) Gastrointestinal Gastrointestinal: Abdominal Pain, Nausea & Vomiting (Britney Perry) Objective Data Data 12/26/17 12/27/17 19:00 07:00 Intake Total 700 ml Output Total 1600 ml Balance -900 ml IV Total 700 ml Output Urine Total 1600 ml Bladder Scan Volume Amount 166 ml Vital Signs Date Time Temp Pulse Resp B/P (MAP) Pulse Ox O2 Delivery O2 Flow Rate FiO2 12/26/17 15:18 98.0 73 16 142/80 (100) 95 12/26/17 11:55 81 12/26/17 11:03 98.5 83 16 173/85 (114) 96 12/26/17 08:14 78 12/26/17 07:06 98.5 78 16 177/85 (115) 98 12/26/17 04:22 80 12/26/17 04:21 98.3 65 16 132/73 (92) 97 12/26/17 01:33 98.2 70 16 169/87 (114) 98 12/25/17 22:54 76 12/25/17 19:23 97.9 85 16 173/89 (117) 96 12/25/17 16:27 98.2 80 20 199/100 (133) 96 (Britney Perry) -: 12/24/17 0708 12/26/17 0510 Physical Exam General Appearance: Well Developed, No Acute Distress, Comfortable (Britney Perry) Eyes Eye Remarks he is blind (Britney Perry) Pulmonary Resp Exam: Clear Bilaterally, Breath Sounds Equal (Britney Perry) Cardiology CV Exam: Regular, Normal Sinus Rhythm (Britney Perry) Gastrointestinal/Abdomen GI Exam: Soft, Non-Tender, Bowel Sounds Present (Britney Perry) Musculoskeletal MS Exam: Joints Intact, Normal Gait, Normal Tone (Britney Perry) Integumentary Skin Exam: Clear, Warm, Dry, Intact (Britney Perry) Extremeties Extremities Exam: No Edema, Pedal Pulses Palpable (Britney Perry) Neurologic Neuro Exam: Alert, Awake, Oriented, Speech Clear, Moving All Extremities (Britney Perry) Psychiatric Psych Exam: Appropriate Responses (Britney Perry) Assessment/Plan Discussed Condition With: Patient Assessment Summary: Hypertension Problem List: (1) ARF (acute renal failure) ICD Codes: N17.9 - ARF (acute renal failure) Status: Acute Plan: POLI on CKD Most likely has underlying diabetic nephropathy. He has had a renal decline over the past year. Most recently his creatinine was 2.87 (Sep 2017). Prior to that it was 2.37 and 1.64. He has proteinuria. Serologies and complement levels with LAUREL have been ordered. Negative to date POLI may be due to prerenal azotemia Renal function has been stable overnight Quantify proteinuria. Avoid nephrotoxic agents Avoid hypotension. Repeat labs in AM. Tolerating oral fluids. (2) CKD (chronic kidney disease) stage 3, GFR 30-59 ml/min ICD Codes: N18.3 - Chronic kidney disease, stage 3 (moderate) Status: Chronic Plan: Hx diabetic nephropathy, see above. (3) Abdominal pain ICD Codes: R10.9 - Unspecified abdominal pain Status: Resolved Plan: Management per hospitalist. May need GI evaluation. (4) Diabetes mellitus ICD Codes: E11.9 - Diabetes mellitus Status: Chronic Plan: Maintain glucose 140-180 mg/dL while hospitalized (5) Uncontrolled hypertension ICD Codes: I10 - Essential (primary) hypertension Status: Acute Plan: Blood pressure control has improved Medications reviewed, they include Coreg, nifedipine, doxazosin, and hydralazine. Patient was on lisinopril this has been held due to acute renal failure Stop IVF that is infusing. (Britney Perry) Plan patient was seen and examined on 12/26/17. Renal function is significantly worse compared to his baseline. Serologies ordered. Agree with above assessment and plan. (Rohit Granados MD) Britney Perry Dec 26, 2017 15:30 Rohit Granados MD Dec 27, 2017 10:30
--- NOTE | 2017-12-26 15:31 | HHI.PR ---
Subjective Remarks Deferred entry - patient seen at Denies cp/sob Denies dizziness and headache. Afebrile BP still elevated but with improved control. Objective Vitals Vital Signs Date Time Temp Pulse Resp B/P (MAP) Pulse Ox O2 Delivery O2 Flow Rate FiO2 12/26/17 15:18 98.0 73 16 142/80 (100) 95 12/26/17 11:55 81 12/26/17 11:03 98.5 83 16 173/85 (114) 96 12/26/17 08:14 78 12/26/17 07:06 98.5 78 16 177/85 (115) 98 12/26/17 04:22 80 12/26/17 04:21 98.3 65 16 132/73 (92) 97 12/26/17 01:33 98.2 70 16 169/87 (114) 98 12/25/17 22:54 76 12/25/17 19:23 97.9 85 16 173/89 (117) 96 12/25/17 16:27 98.2 80 20 199/100 (133) 96 I/O 12/25/17 12/25/17 12/25/17 12/26/17 12/26/17 12/26/17 06:59 14:59 22:59 06:59 14:59 22:59 Intake Total 1150 ml 1000 ml 700 ml Output Total 800 ml 1200 ml 1600 ml Balance -800 ml -50 ml 1000 ml -900 ml Intake Oral 900 ml IV Total 250 ml 1000 ml 700 ml Output Urine Total 800 ml 1200 ml 1600 ml Stool Total 0 ml Bladder Scan Volume Amount 166 ml Result Diagram: 12/24/17 0708 12/26/17 0510 Imaging Last Impressions Renal Ultrasound 12/23/17 0000 Signed Impressions: Service Date/Time: Saturday, December 23, 2017 18:27 - CONCLUSION: Negative for mass or hydronephrosis. Mild bladder wall thickness. Kidneys are of normal size. Karthik Dallas MD FACR Head CT 12/22/17 0000 Signed Impressions: Service Date/Time: December 17:29 - CONCLUSION: 1. No acute findings in the brain. Leeroy Norman MD Abdomen/Pelvis CT 12/22/17 0000 Signed Impressions: Service Date/Time: December 17:33 - CONCLUSION: 1. Interval interval development of appendicolith near the tip the appendix with overall appendiceal size 6 mm, upper limits normal. 2. Prostate enlargement indenting on the urinary bladder, similar in configuration to prior. Leeroy Norman MD Objective Remarks AAO 3. NAD Clear lungs bilaterally S1-S2 present with regular rate and rhythm, no murmurs gallops. Extremities without edema. Mild tenderness to palpation of lumbar spine. Procedures None Medications and IVs Current Medications Medications (Trade) Dose Ordered Sig/Anila Route Start Time Stop Time Status Last Admin (NS Flush) 2 ml UNSCH PRN IV FLUSH 12/22/17 18:30 (NS Flush) 2 ml BID IV FLUSH 12/22/17 21:00 12/26/17 08:06 (Zofran Inj) 4 mg Q6H PRN IVP 12/22/17 18:30 12/23/17 00:32 (Narcan Inj) 0.4 mg UNSCH PRN IV PUSH 12/22/17 18:30 (Morphine Inj) 2 mg Q3H PRN IV PUSH 12/22/17 18:30 12/26/17 08:06 (D50w (Vial) Inj) 50 ml UNSCH PRN IV PUSH 12/23/17 02:30 (Glucagon Inj) 1 mg UNSCH PRN OTHER 12/23/17 02:30 (NovoLOG SUPPLEMENTAL SCALE) 1 ACHS SLIDING SCALE SQ 12/23/17 08:00 12/26/17 13:34 (Lasix) 40 mg DAILY PO 12/23/17 09:00 Future Hold (Prinivil) 40 mg DAILY PO 12/23/17 09:00 Future Hold (Levemir Inj) 5 units Q12HR SQ 12/23/17 21:00 12/26/17 08:05 (Protonix) 40 mg DAILY PO 12/24/17 09:00 12/26/17 08:05 (Coreg) 6.25 mg Q12HR PO 12/24/17 21:00 12/26/17 08:05 (Catapres) 0.1 mg Q6H PRN PO 12/24/17 17:00 12/26/17 11:20 (Ecotrin Ec) 81 mg DAILY PO 12/24/17 17:30 12/26/17 08:05 (Benadryl) 25 mg Q4H PRN PO 12/24/17 21:30 12/25/17 19:38 (Procardia Xl) 90 mg DAILY PO 12/26/17 09:00 12/26/17 08:05 (Cardura) 2 mg DAILY PO 12/26/17 09:00 12/26/17 08:05 (Apresoline) 25 mg Q8HR PO 12/25/17 15:15 12/26/17 13:34 A/P Problem List: (1) Uncontrolled hypertension ICD Code: I10 - Essential (primary) hypertension Status: Acute (2) Abdominal pain ICD Code: R10.9 - Unspecified abdominal pain Status: Resolved (3) Vomiting ICD Code: R11.10 - Vomiting, unspecified Status: Resolved (4) POLI (acute kidney injury) ICD Code: N17.9 - Acute kidney failure, unspecified Status: Acute (5) CKD (chronic kidney disease) stage 3, GFR 30-59 ml/min ICD Code: N18.3 - Chronic kidney disease, stage 3 (moderate) Status: Chronic (6) Anemia ICD Code: D64.9 - Anemia, unspecified Status: Chronic (7) Thrombocytopenia ICD Code: D69.6 - Thrombocytopenia, unspecified Status: Resolved Assessment and Plan Abdominal pain/nausea/vomiting, improved -CT of the abdomen/pelvis significant for appendicolith near the tip of the appendix -General surgery consulted, appreciate recommendations -Flagyl/Levaquin per Gen. surgery -12/24 patient denies abdominal pain, tolerating diet. Cleared to be discharged by general surgery. IV antibiotics discontinued 12/22. Diabetes mellitus -Home insulin Levemir was held since patient was made n.p.o. -Placed on insulin sliding scale. -Monitor blood glucose - 12/24 hemoglobin A1c 8.2. Diabetes is uncontrolled. Blood sugar is acceptable. Continue SSI, Levemir resumed on 12/23. Continue. Hypertension, poorly controlled -Held ACEI and Lasix secondary to kidney injury -Clonidine as needed with parameters -Started on Procardia 30 mg XL -Continue to monitor BP and adjust treatment accordingly 12/24 increase Procardia to 60 mg daily. Increase Coreg to 6.25 mg p.o. every 12 hours. 12/25 blood pressure still severely elevated. Increase Procardia XL to 90 mg p.o. daily. Continue Coreg 6 at 6.25 mg p.o. every 12 hours. Start Cardura 2 mg p.o. daily. Continue clonidine as needed. 12/26 blood pressure still elevated but with better control. Continue Procardia, Coreg, Cardura and hydralazine 25 mg p.o. every 8 hours. Continue clonidine as needed. CHF, not in acute exacerbation -Continue on Coreg 3.125 mg p.o. twice daily -Monitor for any evidence of fluid overload Acute on chronic kidney disease -Creatinine 2.90, baseline approximately 2.1 to 2.5 -Avoid nephrotoxic agents -hold home dose of lisinopril and Lasix -UA not indicative of UTI -Monitor renal function -repeat BMP in a.m. 12/24 ultrasound of the kidneys negative for mass or hydronephrosis. Mild bladder wall thickness. Start gentle IV fluids. Consult nephrology since patient's creatinine is trending up and today is 3.23. Monitor BUN/creatinine, strict I's and O's. 12/25 nephrology consulted. Recommendations pending. Monitor BMP, history I' s and O's, avoid nephrotoxins. Continue IV fluids. 12/26 appreciate nephrology recommendations. The patient likely has underlying diabetic nephropathy. AKA may be due to prerenal azotemia. Renal function is stable. Patient has good urine output. Anemia, microcytic, hypochromic -Chronic, stable -Obtain iron studies, B12, folate level -Stool Hemoccult ordered -12/24 hemoglobin is stable. Anemia is chronic. Iron studies shows normal iron and percent consideration. Anemia likely secondary to chronic kidney disease. Thrombocytopenia -No active bleeding -Continue to monitor platelet -Resolved. Monitor CBC. FEN Electrolytes: monitor and replete prn Discharge Planning DC pending nephrology clearance. Problem Qualifiers (1) Vomiting: Qualified Codes: R11.10 - Vomiting, unspecified (2) Anemia: Qualified Codes: N18.3 - Chronic kidney disease, stage 3 (moderate); D63.1 - Anemia in chronic kidney disease Maximino San MD Dec 26, 2017 15:31
[2017-12-26 18:24] LABS: CREATININE, RANDOM URINE 49.2 MG/DL
[2017-12-27] VITALS (9 sets, daily range): BP systolic 122–159; BP diastolic 68–85; PULSE 75–90; RESP 16–17; TEMP 97.2–98.2; O2SAT 93–97
[2017-12-27] MEDS: MORPHINE SULFATE 2 MG/ML SYRINGE IV PUSH PRN ×3 (01:12→19:27)
[2017-12-27] MEDS: hydrALAZINE HCL 25 MG TAB PO SCH ×3 (04:55→21:49)
[2017-12-27 07:35] LABS: ALBUMIN 2.3 GM/DL (3.4-5.0); BICARBONATE 24.6 MEQ/L (21.0-32.0); CALCIUM 8.1 MG/DL (8.5-10.1); CREATININE 3.5 MG/DL (0.60-1.30)
[2017-12-27 07:37] LABS: PHOSPHORUS 3.5 MG/DL (2.5-4.9)
[2017-12-27] MEDS: INSULIN ASPART SUPPLEMENTAL SCALE SQ SCH ×4 (08:02→19:27)
[2017-12-27] MEDS: SODIUM CHLORIDE 0.9% FLUSH 10 ML FLUSH IV FLUSH SCH ×2 (08:15→19:26)
[2017-12-27] MEDS: ASPIRIN EC 81 MG TABEC PO SCH (08:16)
[2017-12-27] MEDS: DOXAZOSIN MESYLATE 2 MG TAB PO SCH (08:16)
[2017-12-27] MEDS: CARVEDILOL 6.25 MG TAB PO SCH ×2 (08:16→19:25)
[2017-12-27] MEDS: NIFEdipine 90 MG SUSTAINED RELEASE TAB PO SCH (08:16)
[2017-12-27] MEDS: PANTOPRAZOLE SOD 40 MG DELAYED RELEASE TAB PO SCH (08:16)
[2017-12-27] MEDS: INSULIN DETEMIR 100 UNITS/ML VIAL SQ SCH ×2 (08:16→19:27)
--- NOTE | 2017-12-27 09:48 | HHI.NPPN ---
Subjective Renal Failure: Chronic, Acute, Stage III Interval History Sitting on edge of bed eating breakfast. Abdominal pain improved. Renal function is worse. (Britney Perry) Review of Systems Eyes Eyes Remarks blind at baseline (Britney Perry) Gastrointestinal Gastrointestinal: Abdominal Pain, Nausea & Vomiting GI Remarks mostly resolved (Britney Perry) Objective Data Data 12/27/17 12/28/17 19:00 07:00 Output Total 400 ml Balance -400 ml Output Urine Total 400 ml Vital Signs Date Time Temp Pulse Resp B/P (MAP) Pulse Ox O2 Delivery O2 Flow Rate FiO2 12/27/17 07:14 97.8 80 16 159/85 (109) 96 12/27/17 03:53 98.2 75 16 124/71 (88) 97 12/27/17 01:17 18 12/26/17 23:29 98.5 75 15 132/66 (88) 93 12/26/17 20:12 98.7 77 16 161/80 (107) 97 12/26/17 16:13 68 12/26/17 15:18 98.0 73 16 142/80 (100) 95 12/26/17 11:55 81 12/26/17 11:03 98.5 83 16 173/85 (114) 96 (Britney Perry) -: 12/24/17 0708 12/27/17 0625 Imaging Last Impressions Renal Ultrasound 12/23/17 0000 Signed Impressions: Service Date/Time: Saturday, December 23, 2017 18:27 - CONCLUSION: Negative for mass or hydronephrosis. Mild bladder wall thickness. Kidneys are of normal size. Karthik Dallas MD FACR Head CT 12/22/17 0000 Signed Impressions: Service Date/Time: December 17:29 - CONCLUSION: 1. No acute findings in the brain. Leeroy Norman MD Abdomen/Pelvis CT 12/22/17 0000 Signed Impressions: Service Date/Time: December 17:33 - CONCLUSION: 1. Interval interval development of appendicolith near the tip the appendix with overall appendiceal size 6 mm, upper limits normal. 2. Prostate enlargement indenting on the urinary bladder, similar in configuration to prior. Leeroy Norman MD (Britney Perry. [employer]ILER [employer]) Physical Exam General Appearance: Well Developed, No Acute Distress, Comfortable (Britney Perry B. [employer]ILER [employer]) Eyes Eye Remarks he is blind (Britney Perry. [employer]ILER MA[employer]ER) Pulmonary Resp Exam: Clear Bilaterally, Breath Sounds Equal (Britney Perry B. [employer]IL[employer]) Cardiology CV Exam: Regular, Normal Sinus Rhythm (Britney Perry B. [employer]IL[employer]) Gastrointestinal/Abdomen GI Exam: Soft, Non-Tender, Bowel Sounds Present (Britney Perry B. [employer]IL[employer]) Musculoskeletal MS Exam: Joints Intact, Normal Gait, Normal Tone (Britney Perry B. [employer]IL[employer]) Integumentary Skin Exam: Clear, Warm, Dry, Intact (Britney Perry B. [employer]IL[employer]KER) Extremeties Extremities Exam: No Edema, Pedal Pulses Palpable (Britney Perry B. [employer]ILER MAKER) Neurologic Neuro Exam: Alert, Awake, Oriented, Speech Clear, Moving All Extremities (Britney Perry. [employer]ILER MA[employer]ER) Psychiatric Psych Exam: Appropriate Responses (Britney Perry) Assessment/Plan Discussed Condition With: Patient Assessment Summary: Hypertension Problem List: (1) ARF (acute renal failure) ICD Codes: N17.9 - ARF (acute renal failure) Status: Acute Plan: POLI on CKD Most likely has underlying diabetic nephropathy with proteinuria. We have noted a rapid decline over the past year. LAUREL and complement levels are normal. Serum electrophoresis is pending. He may require a renal biopsy. In the interim he is not on IVF. Tolerating oral fluids. Avoid hypotension, BP markedly elevated on arrival. Avoid nephrotoxic agents. Medications reviewed. CHANTAL and lasix on hold. Obtain daily labs. (2) CKD (chronic kidney disease) stage 3, GFR 30-59 ml/min ICD Codes: N18.3 - Chronic kidney disease, stage 3 (moderate) Status: Chronic Plan: Hx diabetic nephropathy, see above. (3) Abdominal pain ICD Codes: R10.9 - Unspecified abdominal pain Status: Resolved Plan: Improved. Management per hospitalist. (4) Diabetes mellitus ICD Codes: E11.9 - Diabetes mellitus Status: Chronic Plan: Maintain glucose 140-180 mg/dL while hospitalized (5) Uncontrolled hypertension ICD Codes: I10 - Essential (primary) hypertension Status: Acute Plan: Blood pressure control has improved Medications reviewed, they include Coreg, nifedipine, doxazosin, and hydralazine. Patient was on lisinopril this has been held due to acute renal failure Stop IVF that is infusing. (Britney Perry) Plan patient was seen and examined. Renal function is worse. May consider renal biopsy. Serologies negative so far. (Rohit Granados MD) Britney Perry Dec 27, 2017 09:48 Rohit Granados MD Dec 27, 2017 10:40
--- NOTE | 2017-12-27 12:39 | HHI.PR ---
Subjective Remarks Denies headache, chest pain, shortness of breath. Creatinine noted to be trending up. BP much better. Objective Vitals Vital Signs Date Time Temp Pulse Resp B/P (MAP) Pulse Ox O2 Delivery O2 Flow Rate FiO2 12/27/17 11:30 82 12/27/17 07:59 77 12/27/17 07:14 97.8 80 16 159/85 (109) 96 12/27/17 03:53 98.2 75 16 124/71 (88) 97 12/27/17 01:17 18 12/26/17 23:29 98.5 75 15 132/66 (88) 93 12/26/17 20:12 98.7 77 16 161/80 (107) 97 12/26/17 16:13 68 12/26/17 15:18 98.0 73 16 142/80 (100) 95 I/O 12/26/17 12/26/17 12/26/17 12/27/17 12/27/17 12/27/17 07:00 15:00 23:00 07:00 15:00 23:00 Intake Total 1000 ml 700 ml Output Total 1600 ml 200 ml 1300 ml Balance 1000 ml -900 ml -200 ml -1300 ml IV Total 1000 ml 700 ml Output Urine Total 1600 ml 200 ml 1300 ml Bladder Scan Volume Amount 166 ml Result Diagram: 12/24/17 0708 12/27/17 0625 Imaging Last Impressions Renal Ultrasound 12/23/17 0000 Signed Impressions: Service Date/Time: Saturday, December 23, 2017 18:27 - CONCLUSION: Negative for mass or hydronephrosis. Mild bladder wall thickness. Kidneys are of normal size. Karthik Dallas MD FACR Head CT 12/22/17 0000 Signed Impressions: Service Date/Time: December 17:29 - CONCLUSION: 1. No acute findings in the brain. Leeroy Norman MD Abdomen/Pelvis CT 12/22/17 0000 Signed Impressions: Service Date/Time: December 17:33 - CONCLUSION: 1. Interval interval development of appendicolith near the tip the appendix with overall appendiceal size 6 mm, upper limits normal. 2. Prostate enlargement indenting on the urinary bladder, similar in configuration to prior. Leeroy Norman MD Objective Remarks AAO 3. NAD Clear lungs bilaterally S1-S2 present with regular rate and rhythm, no murmurs gallops. Extremities without edema. Mild tenderness to palpation of lumbar spine. Procedures None Medications and IVs Current Medications Medications (Trade) Dose Ordered Sig/Anila Route Start Time Stop Time Status Last Admin (NS Flush) 2 ml UNSCH PRN IV FLUSH 12/22/17 18:30 12/26/17 18:21 (NS Flush) 2 ml BID IV FLUSH 12/22/17 21:00 12/27/17 08:15 (Zofran Inj) 4 mg Q6H PRN IVP 12/22/17 18:30 12/23/17 00:32 (Narcan Inj) 0.4 mg UNSCH PRN IV PUSH 12/22/17 18:30 (Morphine Inj) 2 mg Q3H PRN IV PUSH 12/22/17 18:30 12/27/17 08:16 (D50w (Vial) Inj) 50 ml UNSCH PRN IV PUSH 12/23/17 02:30 (Glucagon Inj) 1 mg UNSCH PRN OTHER 12/23/17 02:30 (NovoLOG SUPPLEMENTAL SCALE) 1 ACHS SLIDING SCALE SQ 12/23/17 08:00 12/26/17 20:43 (Lasix) 40 mg DAILY PO 12/23/17 09:00 Future Hold (Prinivil) 40 mg DAILY PO 12/23/17 09:00 Future Hold (Levemir Inj) 5 units Q12HR SQ 12/23/17 21:00 12/27/17 08:16 (Protonix) 40 mg DAILY PO 12/24/17 09:00 12/27/17 08:16 (Coreg) 6.25 mg Q12HR PO 12/24/17 21:00 12/27/17 08:16 (Catapres) 0.1 mg Q6H PRN PO 12/24/17 17:00 12/26/17 11:20 (Ecotrin Ec) 81 mg DAILY PO 12/24/17 17:30 12/27/17 08:16 (Benadryl) 25 mg Q4H PRN PO 12/24/17 21:30 12/25/17 19:38 (Procardia Xl) 90 mg DAILY PO 12/26/17 09:00 12/27/17 08:16 (Cardura) 2 mg DAILY PO 12/26/17 09:00 12/27/17 08:16 (Apresoline) 25 mg Q8HR PO 12/25/17 15:15 12/27/17 04:55 A/P Problem List: (1) Uncontrolled hypertension ICD Code: I10 - Essential (primary) hypertension Status: Acute (2) Abdominal pain ICD Code: R10.9 - Unspecified abdominal pain Status: Resolved (3) Vomiting ICD Code: R11.10 - Vomiting, unspecified Status: Resolved (4) POLI (acute kidney injury) ICD Code: N17.9 - Acute kidney failure, unspecified Status: Acute (5) CKD (chronic kidney disease) stage 3, GFR 30-59 ml/min ICD Code: N18.3 - Chronic kidney disease, stage 3 (moderate) Status: Chronic (6) Anemia ICD Code: D64.9 - Anemia, unspecified Status: Chronic (7) Thrombocytopenia ICD Code: D69.6 - Thrombocytopenia, unspecified Status: Resolved Assessment and Plan Abdominal pain/nausea/vomiting, improved -CT of the abdomen/pelvis significant for appendicolith near the tip of the appendix -General surgery consulted, appreciate recommendations -Flagyl/Levaquin per Gen. surgery -12/27 patient denies abdominal pain, tolerating diet. Cleared to be discharged by general surgery. IV antibiotics discontinued 12/22. Diabetes mellitus type II without any acute complication -Home insulin Levemir was held since patient was made n.p.o. -Placed on insulin sliding scale. -Monitor blood glucose - 12/27 hemoglobin A1c 8.2. Diabetes is uncontrolled. Blood sugar is acceptable. Continue SSI, Levemir resumed on 12/23. Continue. Hypertension, poorly controlled -Held ACEI and Lasix secondary to kidney injury -Clonidine as needed with parameters -Started on Procardia 30 mg XL -Continue to monitor BP and adjust treatment accordingly 12/24 increase Procardia to 60 mg daily. Increase Coreg to 6.25 mg p.o. every 12 hours. 12/25 blood pressure still severely elevated. Increase Procardia XL to 90 mg p.o. daily. Continue Coreg 6 at 6.25 mg p.o. every 12 hours. Start Cardura 2 mg p.o. daily. Continue clonidine as needed. 12/26 blood pressure still elevated but with better control. Continue Procardia, Coreg, Cardura and hydralazine 25 mg p.o. every 8 hours. Continue clonidine as needed. 12/27 blood pressure much improved. Continue management as above. Stable chronic systolic heart failure -Continue on Coreg 3.125 mg p.o. twice daily -Monitor for any evidence of fluid overload Acute on chronic kidney disease stage III-IV per -Creatinine 2.90, baseline approximately 2.1 to 2.5 -Avoid nephrotoxic agents -hold home dose of lisinopril and Lasix -UA not indicative of UTI -Monitor renal function -repeat BMP in a.m. 12/24 ultrasound of the kidneys negative for mass or hydronephrosis. Mild bladder wall thickness. Start gentle IV fluids. Consult nephrology since patient's creatinine is trending up and today is 3.23. Monitor BUN/creatinine, strict I's and O's. 12/25 nephrology consulted. Recommendations pending. Monitor BMP, history I' s and O's, avoid nephrotoxins. Continue IV fluids. 12/26 appreciate nephrology recommendations. The patient likely has underlying diabetic nephropathy. POLI may be due to prerenal azotemia. Renal function is stable. Patient has good urine output. 12/27 creatinine is trending up. Creatinine went up from 3.26-3.50. Nephrology following. I will start the patient on gentle IV fluids as he is blind and he may not be having enough oral intake of fluids. Anemia, microcytic, hypochromic -Chronic, stable -Obtain iron studies, B12, folate level -Stool Hemoccult ordered -12/24 hemoglobin is stable. Anemia is chronic. Iron studies shows normal iron and percent consideration. Anemia likely secondary to chronic kidney disease. Thrombocytopenia -No active bleeding -Continue to monitor platelet -Resolved. Monitor CBC. FEN Electrolytes: monitor and replete prn Discharge Planning Pending a stabilization of renal function and nephrology clearance. Problem Qualifiers (1) Vomiting: Qualified Codes: R11.10 - Vomiting, unspecified (2) Anemia: Qualified Codes: N18.3 - Chronic kidney disease, stage 3 (moderate); D63.1 - Anemia in chronic kidney disease Maximino San MD Dec 27, 2017 12:39
[2017-12-27] MEDS: SODIUM CHLOR 0.9% 1000 ML INJ 1,000 ML IV SCH (13:21)
[2017-12-27] MEDS: ARTIFICIAL TEARS OPTH SOLN 15 ML BTL EACH EYE PRN (14:59)
[2017-12-27 22:06] LABS: ALB/GLOB RATIO (SPE) 1.05 (1.39-2.23)
[2017-12-28] VITALS: BP 145/77; PULSE 81; PULSE 89; RESP 17; TEMP 96.8; O2SAT 98
[2017-12-28] MEDS: SODIUM CHLOR 0.9% 1000 ML INJ 1,000 ML IV SCH (00:40)
[2017-12-28 04:00] VITALS: BP 140/73; PULSE 75; PULSE 84; RESP 17; TEMP 97.2; O2SAT 94
[2017-12-28] MEDS: hydrALAZINE HCL 25 MG TAB PO SCH ×2 (05:31→14:25)
[2017-12-28] MEDS: MORPHINE SULFATE 2 MG/ML SYRINGE IV PUSH PRN ×3 (05:37→11:52)
[2017-12-28 08:00] VITALS: BP 170/97; PULSE 79; PULSE 84; RESP 18; TEMP 95.5; O2SAT 97
[2017-12-28] MEDS: DOXAZOSIN MESYLATE 2 MG TAB PO SCH (08:54)
[2017-12-28] MEDS: INSULIN ASPART SUPPLEMENTAL SCALE SQ SCH ×2 (08:54→11:50)
[2017-12-28] MEDS: CARVEDILOL 6.25 MG TAB PO SCH (08:54)
[2017-12-28] MEDS: SODIUM CHLORIDE 0.9% FLUSH 10 ML FLUSH IV FLUSH SCH (08:54)
[2017-12-28] MEDS: ASPIRIN EC 81 MG TABEC PO SCH (08:55)
[2017-12-28] MEDS: PANTOPRAZOLE SOD 40 MG DELAYED RELEASE TAB PO SCH (08:55)
[2017-12-28] MEDS: INSULIN DETEMIR 100 UNITS/ML VIAL SQ SCH (08:55)
[2017-12-28] MEDS: ARTIFICIAL TEARS OPTH SOLN 15 ML BTL EACH EYE PRN (08:58)
[2017-12-28] MEDS: NIFEdipine 90 MG SUSTAINED RELEASE TAB PO SCH (10:14)
--- NOTE | 2017-12-28 11:34 | HHI.NPPN ---
Subjective Renal Failure: Chronic, Acute, Stage III Interval History Labs from today are pending. He has excellent urine output. (Britney Perry) Review of Systems Eyes Eyes Remarks blind at baseline (Britney Perry) Gastrointestinal Gastrointestinal: Abdominal Pain, Nausea & Vomiting GI Remarks mostly resolved (Britney Perry) Objective Data Data Vital Signs Date Time Temp Pulse Resp B/P (MAP) Pulse Ox O2 Delivery O2 Flow Rate FiO2 12/28/17 08:00 79 12/28/17 08:00 95.5 84 18 170/97 (121) 97 12/28/17 05:42 18 12/28/17 04:00 75 12/28/17 04:00 97.2 84 17 140/73 (95) 94 12/28/17 00:00 81 12/28/17 00:00 96.8 89 17 145/77 (99) 98 12/27/17 22:38 81 12/27/17 19:00 97.2 83 17 122/68 (86) 93 12/27/17 16:15 97.3 90 16 139/76 (97) 97 12/27/17 14:56 98.0 90 16 132/69 (90) 97 12/27/17 12:52 98.2 83 16 136/78 (97) 96 (Britney Perry) -: 12/24/17 0708 12/27/17 0625 Physical Exam General Appearance: Well Developed, No Acute Distress, Comfortable (Britney Perry) Eyes Eye Remarks he is blind (Britney Perry) Pulmonary Resp Exam: Clear Bilaterally, Breath Sounds Equal (Britney Perry) Cardiology CV Exam: Regular, Normal Sinus Rhythm (Britney Perry) Gastrointestinal/Abdomen GI Exam: Soft, Non-Tender, Bowel Sounds Present (Britney Perry) Musculoskeletal MS Exam: Joints Intact, Normal Gait, Normal Tone (Briteny Perry) Integumentary Skin Exam: Clear, Warm, Dry, Intact (Britney Perry) Extremeties Extremities Exam: No Edema, Pedal Pulses Palpable (Britney Perry) Neurologic Neuro Exam: Alert, Awake, Oriented, Speech Clear, Moving All Extremities (Britney Perry) Psychiatric Psych Exam: Appropriate Responses (Britney Perry) Assessment/Plan Discussed Condition With: Patient Assessment Summary: POLI/Acute Renal Failure, Hypertension, CKD Stage IV Problem List: (1) ARF (acute renal failure) ICD Codes: N17.9 - ARF (acute renal failure) Status: Acute Plan: POLI on CKD Most likely has underlying diabetic nephropathy with proteinuria. We have noted a rather rapid decline over the past year. LAUREL and complement levels are normal. Serum electrophoresis and ANCA panel are pending. In the interim stop IVF. Tolerating oral fluids. Avoid hypertension, Avoid nephrotoxic agents. Medications reviewed. CHANTAL and Lasix on hold. Obtain daily labs. IF renal function is stable, we can follow in outpatient setting. (2) CKD (chronic kidney disease) stage 3, GFR 30-59 ml/min ICD Codes: N18.3 - Chronic kidney disease, stage 3 (moderate) Status: Chronic Plan: Hx diabetic nephropathy, see above. (3) Uncontrolled hypertension ICD Codes: I10 - Essential (primary) hypertension Status: Acute Plan: Blood pressure still elevated On Coreg, nifedipine, doxazosin, and hydralazine. Add 5 mg amlodipine. CHANTAL and diuretic to be resumed after discharge. Stop IVF that is infusing. (4) Diabetes mellitus ICD Codes: E11.9 - Diabetes mellitus Status: Chronic Plan: Maintain glucose 140-180 mg/dL while hospitalized (5) Abdominal pain ICD Codes: R10.9 - Unspecified abdominal pain Status: Resolved Plan: Improved. Management per hospitalist. (Britney Perry) Problem List: (1) ARF (acute renal failure) ICD Codes: N17.9 - ARF (acute renal failure) Status: Acute Plan: POLI on CKD Most likely has underlying diabetic nephropathy with proteinuria. We have noted a rather rapid decline over the past year. LAUREL and complement levels are normal. Serum electrophoresis and ANCA panel are pending. In the interim stop IVF. Tolerating oral fluids. Avoid hypertension, Avoid nephrotoxic agents. Medications reviewed. CHANTAL and Lasix on hold. Obtain daily labs. IF renal function is stable, we can follow in outpatient setting. (2) CKD (chronic kidney disease) stage 3, GFR 30-59 ml/min ICD Codes: N18.3 - Chronic kidney disease, stage 3 (moderate) Status: Chronic Plan: Hx diabetic nephropathy, see above. (3) Uncontrolled hypertension ICD Codes: I10 - Essential (primary) hypertension Status: Acute Plan: Blood pressure still elevated On Coreg, nifedipine, doxazosin, and hydralazine. Add 5 mg amlodipine. CHANTAL and diuretic to be resumed after discharge. Stop IVF that is infusing. (4) Diabetes mellitus ICD Codes: E11.9 - Diabetes mellitus Status: Chronic Plan: Maintain glucose 140-180 mg/dL while hospitalized (5) Abdominal pain ICD Codes: R10.9 - Unspecified abdominal pain Status: Resolved Plan: Improved. Management per hospitalist. Plan patient was seen and examined. Creatinine slightly better. He can be discharged from renal standpoint. We will follow him in our CKD clinic. (Rohit Granados MD) Britney PerryP Dec 28, 2017 11:34 Rohit Granados MD Dec 28, 2017 21:50
[2017-12-28] MEDS ORDERED: amLODIPine BESYLATE 5 MG TAB PO SCH (11:45)
[2017-12-28 12:00] VITALS: BP 166/85; PULSE 83; PULSE 85; RESP 17; TEMP 96.1; O2SAT 98
[2017-12-28 12:33] LABS: ALBUMIN 2.5 GM/DL (3.4-5.0); BICARBONATE 22.1 MEQ/L (21.0-32.0); CALCIUM 8.4 MG/DL (8.5-10.1); CREATININE 3.44 MG/DL (0.60-1.30); PHOSPHORUS 3.1 MG/DL (2.5-4.9)
[2017-12-28 13:54] VITALS: BP 164/85; PULSE 77
[2017-12-28] MEDS ORDERED: HYDR-3799 PO (14:54)
[2017-12-28] MEDS ORDERED: NIFE90TA2 PO (14:54)
[2017-12-28] MEDS ORDERED: LEVEMIR SQ (14:54)
[2017-12-28] MEDS ORDERED: CARD2TAB PO (14:54)
[2017-12-28] MEDS ORDERED: CARV6.25 PO (14:54)
[2017-12-28 16:00] VITALS: BP 167/81; PULSE 79; RESP 16; TEMP 96.8; O2SAT 95
--- NOTE | 2017-12-28 17:55 | HHI.DS ---
Discharge Summary Admission Date Dec 26, 2017 at 11:44 Discharge Date: Dec 28, 2017 Admitting Diagnosis abdominal pain, vomiting, appendicolith, hypertensive urgency (1) Uncontrolled hypertension ICD Code: I10 - Essential (primary) hypertension Status: Acute (2) Abdominal pain ICD Code: R10.9 - Unspecified abdominal pain Status: Resolved (3) Vomiting ICD Code: R11.10 - Vomiting, unspecified Status: Resolved (4) POLI (acute kidney injury) ICD Code: N17.9 - Acute kidney failure, unspecified Status: Acute (5) CKD (chronic kidney disease) stage 3, GFR 30-59 ml/min ICD Code: N18.3 - Chronic kidney disease, stage 3 (moderate) Status: Chronic (6) Anemia ICD Code: D64.9 - Anemia, unspecified Status: Chronic (7) Thrombocytopenia ICD Code: D69.6 - Thrombocytopenia, unspecified Status: Resolved Procedures None Brief History - From Admission 57-year-old male with a past medical history significant for diabetes mellitus, hypertension, hyperlipidemia, BPH and CHF (no recent echo for comparison) presents to the emergency department evaluation of 2 days of abdominal pain. The patient reports he's had associated nausea/vomiting/diarrhea. He states he has been unable to keep any oral intake down. He endorses dizziness upon standing. Denies any chest pain or shortness of breath. No fever/chills. No lateralizing signs/symptoms. CBC/BMP: 12/24/17 0708 12/28/17 1144 Significant Findings Laboratory Tests Test 12/26/17 05:10 12/27/17 06:25 12/27/17 11:04 12/28/17 11:44 Blood Urea Nitrogen 30 MG/DL (7-18) 36 MG/DL (7-18) 38 MG/DL (7-18) Creatinine 3.26 MG/DL (0.60-1.30) 3.50 MG/DL (0.60-1.30) 3.44 MG/DL (0.60-1.30) Random Glucose 113 MG/DL (74-106) 138 MG/DL (74-106) 195 MG/DL (74-106) Calcium Level 8.2 MG/DL (8.5-10.1) 8.1 MG/DL (8.5-10.1) 8.4 MG/DL (8.5-10.1) Estimat Glomerular Filtration Rate 24 ML/MIN (>89) 22 ML/MIN (>89) 22 ML/MIN (>89) Albumin/Globulin Ratio 1.05 (1.39-2.23) [id number] 1.16 GM/DL (0.22-1.00) Albumin 2.3 GM/DL (3.4-5.0) 2.5 GM/DL (3.4-5.0) Chloride Level 110 MEQ/L (98-107) 109 MEQ/L (98-107) Imaging Last Impressions Renal Ultrasound 12/23/17 0000 Signed Impressions: Service Date/Time: Saturday, December 23, 2017 18:27 - CONCLUSION: Negative for mass or hydronephrosis. Mild bladder wall thickness. Kidneys are of normal size. Karthik Dallas MD FACR Head CT 12/22/17 0000 Signed Impressions: Service Date/Time: December 17:29 - CONCLUSION: 1. No acute findings in the brain. Leeroy Norman MD Abdomen/Pelvis CT 12/22/17 0000 Signed Impressions: Service Date/Time: December 17:33 - CONCLUSION: 1. Interval interval development of appendicolith near the tip the appendix with overall appendiceal size 6 mm, upper limits normal. 2. Prostate enlargement indenting on the urinary bladder, similar in configuration to prior. Leeroy Norman MD PE at Discharge AAO 3. NAD Clear lungs bilaterally S1-S2 present with regular rate and rhythm, no murmurs gallops. Extremities without edema. Mild tenderness to palpation of lumbar spine. Pt update on day of discharge Patient is currently doing well. No acute concerns. Ambulating well, no CP, SOB , fever, chills. On room air. Tolerating diet well. Hospital Course On 12/23/2017, Mr. Avila with a history of diabetes mellitus, hypertension, hyperlipidemia, BPH and CHF presented to the ED due to 2 day duration of abdominal pain. He had N/V, diarrhea. CT of the abdomen/pelvis significant for appendicolith near the tip of the appendix. General surgery indicated no surgical intervention. Patient also had acute on chronic kidney disease. Nephrology followed patient. Patient's creatinine has been around 3.2 to 3.5. On the day of discharge, 12/28/2017, Cr was 3.44. I discussed with nephrology who was okay with patient going home and follow up in the outpatient setting. Due to acute on CKD, we did not continue lisinopril for BP. In future, Nephrology can initiate CHANTAL inhibitor for diabetic nephropathy. With regards to diabetes, patient's home med included Levemir 28 units QHS. In the hospital he was only getting 5 units BID. We discharged him on Levemir 12 units QHS. Close monitoring and titration would be required. Recommended patient to follow up with PCP within one week. Pt Condition on Discharge: Good Discharge Disposition: Discharge Home Discharge Time: <= 30 minutes Discharge Instructions DIET: Follow Instructions for: Heart Healthy Diet Activities you can perform: Regular-No Restrictions Follow up Referrals: Nephrology - 2 Weeks with Rohit Granados MD PCP Follow-up - 1 Week New Medications: Carvedilol (Coreg) 6.25 Mg Tab 6.25 MG PO Q12HR for Heart, #60 TAB Doxazosin (Cardura) 2 Mg Tab 2 MG PO DAILY for prostate, #30 TAB Hydralazine HCl (Hydralazine HCl) 25 Mg Tablet 25 MG PO Q8HR for Blood Pressure Management, #90 TAB 3 Refills Nifedipine (Nifedipine ER) 90 Mg Tab 90 MG PO DAILY for Blood Pressure Management, #30 TAB 3 Refills Changed Medications: Insulin Detemir Inj (Levemir Inj) 1,000 unit/ 10 ML Vial 12 UNITS SQ HS for Blood Sugar Management for 30 Days, VIAL 0 Refills (Changed from: 28 UNITS; DAILY) Do not mix with any other Insulin. Continued Medications: Aspirin DR (Aspirin EC) 81 Mg Tabdr 81 MG PO DAILY, TAB 0 Refills Carvedilol (Carvedilol) 3.125 Mg Tab 3.125 MG PO BID, #60 TAB 0 Refills Furosemide (Furosemide) 40 Mg Tab 40 MG PO DAILY, #30 TAB 0 Refills Discontinued Medications: Lisinopril (Lisinopril) 40 Mg Tab 40 MG PO DAILY for Blood Pressure Management, #30 TAB 0 Refills Rufino Sandoval DO Dec 28, 2017 17:55
== END 2017-12-28 16:18 | disposition home or self-care (01) | DRG 392 ==
LOC: NEPE 12:57 → NEDA 18:26 → NEPHCDU 19:50 → OBSVTOIN 12-26 11:44 → N03B 12-27 17:02
PROVIDERS: ADMIT Hospitalist; ATTEND Hospitalist
DX: R11.2 Nausea with vomiting, unspecified (principal); N18.4 Chronic kidney disease, stage 4 (severe); D69.6 Thrombocytopenia, unspecified; E11.21 Type 2 diabetes mellitus with diabetic nephropathy; N17.9 Acute kidney failure, unspecified; I13.0 Hypertensive heart and chronic kidney disease with heart failure and stage 1 through stage 4 chronic kidney disease, or unspecified chronic kidney disease; I50.22 Chronic systolic (congestive) heart failure; E11.22 Type 2 diabetes mellitus with diabetic chronic kidney disease; I16.0 Hypertensive urgency; R42 Dizziness and giddiness; G89.29 Other chronic pain; M54.9 Dorsalgia, unspecified; E11.319 Type 2 diabetes mellitus with unspecified diabetic retinopathy without macular edema; N28.9 Disorder of kidney and ureter, unspecified; N40.0 Benign prostatic hyperplasia without lower urinary tract symptoms; K38.1 Appendicular concretions; E78.5 Hyperlipidemia, unspecified; R19.7 Diarrhea, unspecified; D50.9 Iron deficiency anemia, unspecified; D63.1 Anemia in chronic kidney disease; H54.7 Unspecified visual loss; J44.9 Chronic obstructive pulmonary disease, unspecified; M19.90 Unspecified osteoarthritis, unspecified site; Z87.11 Personal history of peptic ulcer disease; Z87.891 Personal history of nicotine dependence; Z83.3 Family history of diabetes mellitus; Z79.4 Long term (current) use of insulin
CPT/HCPCS: 70450; 74176; 76775; 80048; 80053; 80069; 81001; 82570; 82607; 82728; 82746; 82948; 83036; 83540; 83550; 83605; 83690; 84156; 84165; 84300; 84443; 85025; 85027; 86021; 86038; 86160; 93005; 96361; 96365; 96367; 96372; 96374; 96375; 96376; C9113; G0378; G8987-GP; G8988-GP; J0360; J1815; J1956; J2270; J2405; J7030

== ENCOUNTER 2018-07-21 14:46 | Observation (INO) ==
[2018-07-21] MEDS ORDERED: Hypromellose 0.3% Opth Gel 10 GM Bottle EACH EYE ONE (15:42)
--- NOTE | 2018-07-21 15:59 | XR ---
EXAM DATE: 07/21/2018 3:55 PM EDT AGE/SEX: 58 years / Male INDICATIONS: Bilateral chest and upper abdomen pain. CLINICAL DATA: This is the patient's initial encounter. Patient reports that signs and symptoms have been present for 1 day and indicates a pain score of 5/10. MEDICAL/SURGICAL HISTORY: . Renal insufficiency, chronic. Congestive heart failure. Hypertensio n. Blindness. Pneumonia. Sepsis. Ulcer. Mumps. BPH. Rheumatoid arthritis. Diabetes. Measles. . Righ t knee surgery. Liver abscess drainage. COMPARISON: [facility] [place], CHEST SINGLE AP, 03/27/2017. . FINDINGS: A single AP view of the chest demonstrates the lungs to be symmetrically aerated without evidence of mass, infiltrate or effusion. The cardiomediastinal contours are unremarkable. Osseous structures a re intact. CONCLUSION: Negative for acute process Electronically signed by: Karthik Dallas MD 07/21/2018 3:58 PM EDT
--- NOTE | 2018-07-21 16:19 | CT ---
EXAM DATE: 07/21/2018 4:12 PM EDT AGE/SEX: 58 years / Male INDICATIONS: Dizziness and vomiting for four days. CLINICAL DATA: This is the patient's initial encounter. Patient reports that signs and symptoms have been present for 4 - 6 days and indicates a pain score of 4/10. MEDICAL/SURGICAL HISTORY: Diabetes. Renal disease. None. RADIATION DOSE: 38.28 CTDI (mGy) [place] [facility] [place]/22/[place]. . TECHNIQUE: CT of the head without contrast. Using automated exposure control and adjustment of the mA and/or kV according to patient size, radiation dose was kept as low as reasonably achievable to ob tain optimal diagnostic quality images. DICOM format image data is available electronically for revi ew and comparison. FINDINGS: Cerebrum: The ventricles are normal for age. There is a 1 cm hypodensity in the centrum semiovale re gion on the left probably a chronic lacunar infarct however it is new since December 2017. No evidence o f midline shift, mass lesion, hemorrhage or acute infarction. No extraaxial fluid collections are se en. Posterior Fossa: The cerebellum and brainstem are intact. The 4th ventricle is midline. The cerebe llopontine angle is unremarkable. Extracranial: Both] contracted and partially calcified Skull: The calvaria is intact. No evidence of skull fracture. CONCLUSION: 1. 1 cm hypodensity in the left centrum semiovale region new since December but I still believe its chr onic. No definite acute hemorrhage or edema. 2. Calcified shrunken globes bilaterally. . Electronically signed by: Ion Staley MD 07/21/2018 4:17 PM EDT
[2018-07-21 16:21] LABS: Baso % (Auto) 0.4 % (0.0-2.0); Eos # (Auto) 0.1 th/mm3 (0.0-0.4); Eos % (Auto) 1.5 % (0.0-4.0); Hematocrit 31.7 % (39.0-51.0); Hemoglobin 10.6 gm/dL (13.0-17.0); Lymph # (Auto) 1.6 th/mm3 (1.0-4.8); Lymph % (Auto) 21.4 % (9.0-44.0); Mean Corpuscular HGB Conc 33.6 % (32.0-36.0); Mean Corpuscular Hemoglobin 26.9 pg (27.0-34.0); Mean Corpuscular Volume 80.2 fL (80.0-100.0); Mean Platelet Volume 10.1 fL (7.0-11.0); Mono # (Auto) 0.6 th/mm3 (0.0-0.9); Mono % (Auto) 7.7 % (0.0-8.0); Neut # (Auto) 5.2 th/mm3 (1.8-7.7); Platelet Count 171 th/mm3 (150-450); Red Blood Count 3.95 mil/mm3 (4.50-5.90); Red Cell Distribution Width 15.5 % (11.6-17.2); White Blood Count 7.5 th/mm3 (4.0-11.0)
[2018-07-21 16:37] LABS: Prothrombin Time 10.3 sec (9.8-11.6)
[2018-07-21 16:48] LABS: Bilirubin,Urine Negative (Negative); Clarity,Urine Clear (Clear); Color,Urine Yellow (Yellw/Straw); Glucose,Urine (UA) 50 mg/dL (Negative); Leukocyte Esterase,Urine Negative (Negative); Nitrite,Urine Negative (Negative); Specific Gravity,Urine 1.014 (1.002-1.035); Squamous Epithelial Cell,Urine <1 /hpf (0-5)
[2018-07-21 16:55] LABS: Albumin 3.4 g/dL (3.4-5.0); Anion Gap 9 meq/L (5-15); Aspartate Aminotransferase 17 U/L (15-37); Blood Urea Nitrogen 56 mg/dL (7-18); Calcium 8.6 mg/dL (8.5-10.1); Carbon Dioxide 21.7 meq/L (21.0-32.0); Chloride 110 meq/L (98-107); Glomerular Filtration Rate 15 mL/min (>89); Glucose,Random 122 mg/dL (74-106); Lipase 103 U/L (73-393); Magnesium 2.3 mg/dL (1.5-2.5); Potassium 4.5 meq/L (3.5-5.1); Sodium 141 meq/L (136-145)
[2018-07-21 17:01] LABS: Alanine Aminotransferase 28 U/L (12-78); Alkaline Phosphatase 89 U/L (45-117); Creatine Kinase 538 U/L (39-308); Total Protein 7.4 g/dL (6.4-8.2); Troponin I 0.03 ng/mL (0.02-0.05)
[2018-07-21 17:13] LABS: CKMB Percent 0.9 % (0.0-4.0); Creatine Kinase MB 4.8 ng/mL (0.5-3.6)
--- NOTE | 2018-07-21 17:56 | ED ---
HPI General Chief complaint: Medical Clearance Stated complaint: Dizzy,Headache,Chest,Stomach Complaint Time Seen by Provider: 07/21/18 15:24 Source: patient Mode of arrival: ambulatory Limitations: no limitations History of Present Illness HPI Narrative: 58-year-old male the presents to the ED via private vehicle for evaluation of dizziness, chest pains and abdominal pain. Per patient he has had this on and off for 4 days. Patient chest pain abdominal pain, comes and go. Nothing seems to really make it better or worse. He states that the chest pain when he comes feels like a pressure. He has a history of ESRD and diabetes. He takes medications for this. Patient had a fistula placed on his left arm but has yet to start dialysis. Patient follows with Dr. Hawkins for this. Patient states the pain when he comes to his. Has not seen anybody for this. Takes tramadol chronically for his pain. Per patient he has no bowel movement or urinary issues. No fevers chills or sweats. Patient states that pain is 6/10 when it comes. No other medical issues at this time. No fevers, chills or sweats. Nothing seems to make the pain worse. Home Medications Medication Instructions Recorded Confirmed aspirin [Adult Low Dose Aspirin] 81 mg PO DAILY 06/02/18 07/21/18 carvedilol [Coreg] 6.25 mg PO BID 06/02/18 07/21/18 doxazosin [Cardura] 2 mg PO DAILY 06/02/18 07/21/18 furosemide 40 mg PO DAILY 06/02/18 07/21/18 hydralazine 25 mg PO TID 06/02/18 07/21/18 insulin detemir U-100 28 unit SUB-Q QPM 06/02/18 07/21/18 nifedipine 90 mg PO DAILY 06/02/18 07/21/18 Allergies Allergy/AdvReac Type Severity Reaction Status Date / Time gabapentin Allergy Intermediate Itching Verified 07/21/18 15:30 Review of Systems ROS: all other systems reviewed are negative [facility] Medical History Medical History AV fistula (Acute) Diabetes mellitus, type 2 (Acute) Chronic kidney disease (Acute) Diabetic retinopathy (Acute) Enlarged prostate (Acute) Generalized body aches (Acute) Hx of retinal hemorrhage (Acute) Hypertension (Acute) Joint pain (Acute) Rheumatoid arthritis (Acute) Surgical History Surgical History History of repair of anterior cruciate ligament of right knee (Acute) Hx of exploratory laparotomy (Acute) Hx of laser photocoagulation of retina (Acute) Social History Social History Substance History: No History of Abuse Second Hand Smoke Exposure: No Smoking Status: Former smoker Tobacco Type: Cigarettes How Often Do You Have a Drink Containing Alcohol: Never Recent Travel [facility] within the Last 8 Weeks: No Recent Out of Country Travel within the Last 8 Weeks: No Immunization History Tetanus Immunization: >5 Years Exam Narrative Exam Narrative: GENERAL: Well appearing SKIN: Focused skin assessment warm/dry. Patient has a working fistula on the left arm. HEAD: Atraumatic. Normocephalic. EYES: Pupils equal and round. No scleral icterus. No injection or drainage. ENT: No nasal bleeding or discharge. Mucous membranes pink and moist. Tongue is midline. No uvula deviation. NECK: Trachea midline. No JVD. CARDIOVASCULAR: Regular rate and rhythm. No murmur appreciated. RESPIRATORY: No accessory muscle use. Clear to auscultation. Breath sounds equal bilaterally. GASTROINTESTINAL: Abdomen soft, non-tender, nondistended. Hepatic and splenic margins not palpable. MUSCULOSKELETAL: No obvious deformities. No clubbing. No cyanosis. No edema. Full range of motion of the upper and lower extremities bilaterally. 2+ pulses bilaterally. NEUROLOGICAL: Awake and alert. No obvious cranial nerve deficits. Motor grossly within normal limits. Normal speech. PSYCHIATRIC: Appropriate mood and affect; insight and judgment normal. Course Initial Documented Vital Signs Temperature 98.4 F 07/21/18 15:13 Pulse Rate 84 07/21/18 15:13 Respiratory Rate 20 07/21/18 15:13 Blood Pressure 199/91 H 07/21/18 15:13 Pulse Oximetry 96 07/21/18 15:13 Last Documented Vital Signs Temperature 97.9 F 07/21/18 17:53 Pulse Rate 87 07/21/18 18:09 Respiratory Rate 23 07/21/18 18:09 Blood Pressure 199/96 H 07/21/18 18:09 Pulse Oximetry 100 07/21/18 18:09 Medical Decision Making MDM Narrative Medical decision making narrative: 58-year-old male the presents to the ED for evaluation of chest pain, dizziness and abdominal pain. Patient was properly examined and was found to have signs and symptoms of unclear etiology. Labs and imaging were ordered. Labs and imaging showed no sign of acute disease. Unclear etiology at this time of the symptoms. Patient does have chronic kidney disease. At this time I recommend admission to the chest pain center for chest pain center rule out. I suspect that this is more typical chest pain. But unfortunately patient does have multiple risk factors for cardiac disease. Patient agrees to admission. Patient was admitted to chest pain center by me. Medical Screen Exam Complete: Yes Emergency Medical Condition: Yes Differential Diagnosis Differential Diagnosis: Chest pain versus atypical chest pain versus ESRD versus acute abdomen versus normal exam Medical Records Medical records reviewed: Yes I reviewed the patient's medical records. Lab Data Lab results reviewed: Yes I reviewed the patient's lab results. Lab results narrative: trop negative CKMB negative Result diagrams: 07/21/18 15:40 07/21/18 15:40 Lab Results 07/21/18 07/21/18 07/21/18 Range/Units 15:40 15:40 15:40 WBC 7.5 (4.0-11.0) th/mm3 RBC 3.95 L (4.50-5.90) mil/mm3 Hgb 10.6 L (13.0-17.0) gm/dL Hct 31.7 L (39.0-51.0) % MCV 80.2 (80.0-100.0) fL MCH 26.9 L (27.0-34.0) pg MCHC 33.6 (32.0-36.0) % RDW 15.5 (11.6-17.2) % Plt Count 171 (150-450) th/mm3 MPV 10.1 (7.0-11.0) fL Neut % (Auto) 69.0 (16.0-70.0) % Lymph % (Auto) 21.4 (9.0-44.0) % Leslie % (Auto) 7.7 (0.0-8.0) % Eos % (Auto) 1.5 (0.0-4.0) % Baso % (Auto) 0.4 (0.0-2.0) % Neut # (Auto) 5.2 (1.8-7.7) th/mm3 Lymph # (Auto) 1.6 (1.0-4.8) th/mm3 Leslie # (Auto) 0.6 (0.0-0.9) th/mm3 Eos # (Auto) 0.1 (0.0-0.4) th/mm3 Baso # (Auto) 0.0 (0.0-0.2) th/mm3 WBC Differential . Differential Comment Auto diff final PT 10.3 (9.8-11.6) sec INR 1.0 Ratio APTT 26.0 (23.4-31.7) sec Sodium 141 (136-145) meq/L Potassium 4.5 (3.5-5.1) meq/L Chloride 110 H (98-107) meq/L Carbon Dioxide 21.7 (21.0-32.0) meq/L Anion Gap 9 (5-15) meq/L BUN 56 H (7-18) mg/dL Creatinine 4.87 H (0.60-1.30) mg/dL Estimated GFR 15 L (>89) mL/min Random Glucose 122 H (74-106) mg/dL Calcium 8.6 (8.5-10.1) mg/dL Magnesium 2.3 (1.5-2.5) mg/dL Total Bilirubin 0.3 (0.2-1.0) mg/dL AST 17 (15-37) U/L ALT 28 (12-78) U/L Alkaline Phosphatase 89 (45-117) U/L Total Creatine Kinase 538 H (39-308) U/L CK-MB (CK-2) 4.8 H (0.5-3.6) ng/mL CK-MB (CK-2) % 0.9 (0.0-4.0) % Troponin I 0.03 (0.02-0.05) ng/mL B-Natriuretic Peptide (0-100) pg/mL Total Protein 7.4 (6.4-8.2) g/dL Albumin 3.4 (3.4-5.0) g/dL Lipase 103 (73-393) U/L Urine Color (Yellw/Straw) Urine Clarity (Clear) Urine pH (5.0-8.5) Ur Specific [place] (1.002-1.035) Urine Protein (Neg-Trace) mg/dL Urine Glucose (UA) (Negative) mg/dL Urine Ketones (Negative) mg/dL Urine Occult Blood (Negative) Urine Nitrate (Negative) Urine Bilirubin (Negative) Urine Urobilinogen (Less than 2) mg/dL Ur Leukocyte Esterase (Negative) Urine RBC (0-3) /hpf Urine WBC (0-5) /hpf Ur Squamous Epith Cells (0-5) /hpf Granular Casts (None) /lpf Micro UA Comment Ur Microscopic Review Urine Culture Comments 07/21/18 07/21/18 Range/Units 15:40 16:00 WBC (4.0-11.0) th/mm3 RBC (4.50-5.90) mil/mm3 Hgb (13.0-17.0) gm/dL Hct (39.0-51.0) % MCV (80.0-100.0) fL MCH (27.0-34.0) pg MCHC (32.0-36.0) % RDW (11.6-17.2) % Plt Count (150-450) th/mm3 MPV (7.0-11.0) fL Neut % (Auto) (16.0-70.0) % Lymph % (Auto) (9.0-44.0) % Leslie % (Auto) (0.0-8.0) % Eos % (Auto) (0.0-4.0) % Baso % (Auto) (0.0-2.0) % Neut # (Auto) (1.8-7.7) th/mm3 Lymph # (Auto) (1.0-4.8) th/mm3 Leslie # (Auto) (0.0-0.9) th/mm3 Eos # (Auto) (0.0-0.4) th/mm3 Baso # (Auto) (0.0-0.2) th/mm3 WBC Differential Differential Comment PT (9.8-11.6) sec INR Ratio APTT (23.4-31.7) sec Sodium (136-145) meq/L Potassium (3.5-5.1) meq/L Chloride (98-107) meq/L Carbon Dioxide (21.0-32.0) meq/L Anion Gap (5-15) meq/L BUN (7-18) mg/dL Creatinine (0.60-1.30) mg/dL Estimated GFR (>89) mL/min Random Glucose (74-106) mg/dL Calcium (8.5-10.1) mg/dL Magnesium (1.5-2.5) mg/dL Total Bilirubin (0.2-1.0) mg/dL AST (15-37) U/L ALT (12-78) U/L Alkaline Phosphatase (45-117) U/L Total Creatine Kinase (39-308) U/L CK-MB (CK-2) (0.5-3.6) ng/mL CK-MB (CK-2) % (0.0-4.0) % Troponin I (0.02-0.05) ng/mL B-Natriuretic Peptide 90 (0-100) pg/mL Total Protein (6.4-8.2) g/dL Albumin (3.4-5.0) g/dL Lipase (73-393) U/L Urine Color Yellow (Yellw/Straw) Urine Clarity Clear (Clear) Urine pH 5.0 (5.0-8.5) Ur Specific [place] 1.014 (1.002-1.035) Urine Protein 500 or greater (Neg-Trace) mg/dL Urine Glucose (UA) 50 (Negative) mg/dL Urine Ketones Negative (Negative) mg/dL Urine Occult Blood Small H (Negative) Urine Nitrate Negative (Negative) Urine Bilirubin Negative (Negative) Urine Urobilinogen Less than 2 (Less than 2) mg/dL Ur Leukocyte Esterase Negative (Negative) Urine RBC 1 (0-3) /hpf Urine WBC 1 (0-5) /hpf Ur Squamous Epith Cells <1 (0-5) /hpf Granular Casts 5 (None) /lpf Micro UA Comment Culture not ind Ur Microscopic Review Not Reportable Urine Culture Comments Culture not ind Imaging Data Attestation: I personally reviewed and interpreted this imaging study as follows : Radiologist's impression: Chest X-Ray 07/21/18 15:33 CONCLUSION: Negative for acute process Head CT 07/21/18 15:35 CONCLUSION: 1. 1 cm hypodensity in the left centrum semiovale region new since December but I still believe its chronic. No definite acute hemorrhage or edema. 2. Calcified shrunken globes bilaterally. . Abdomen/Pelvis CT 07/21/18 17:50 CONCLUSION: 1. No acute findings within the abdomen and pelvis. 2. Markedly enlarged prostate. Tiny appendicolith without evidence for appendicitis. Small hiatal hernia. Trace pericardial fluid. ECG Data Attestation: I personally reviewed and interpreted this ECG as follows: Interpretation: EKG shows sinus rhythm no sign of acute ischemia and arrhythmia read by me and attending. Discharge Plan Discharge Disposition Patient Disposition: 30 Still Patient Discharge Details Diagnosis: Chest pain Physicians Team ED Provider: Adri De Santiago ED Midlevel Provider: Petros Jordan Primary Care Provider: Marylin Gonzalez Attending Provider: Sadiq Orozco Status ED Status: Admitted Observation Patient
--- NOTE | 2018-07-21 19:13 | CT ---
EXAM DATE: 07/21/2018 7:00 PM EDT AGE/SEX: 58 years / Male INDICATIONS: Abdominal pain. CLINICAL DATA: This is the patient's initial encounter. Patient reports that signs and symptoms have been present for 4 - 6 days and indicates a pain score of 5/10. MEDICAL/SURGICAL HISTORY: Diabetes. Chronic renal failure. Hypertension. Enlarged prostate. AV Fistula. None. RADIATION DOSE: 7.66 CTDI (mGy) COMPARISON: [facility] [place], CT ABDOMEN & PELVIS W/O CONTRAST, 12/22/2017. . TECHNIQUE: Multiple contiguous axial images were obtained through the abdomen. Images were obtained using multiple row detector helical technique. Using automated exposure control and adjustment of the mA and/or kV according to patient size, radiation dose was kept as low as reasonably achievable to o btain optimal diagnostic quality images. DICOM format image data is available electronically for rev iew and comparison. FINDINGS: Lung bases are clear. Small pericardial effusion. Small hiatal hernia. No acute findings in the liver, spleen, adrenals, kidneys or pancreas. Questionable tiny appendicolith distally but no inflammatory changes within the appendix. The prostate is enlarged and lobulated in appearance. Moderate degenerative disc disease in the spine . CONCLUSION: 1. No acute findings within the abdomen and pelvis. 2. Markedly enlarged prostate. Tiny appendicolith without evidence for appendicitis. Small hiatal he rnia. Trace pericardial fluid. Electronically signed by: Gaurav Sosa MD 07/21/2018 7:12 PM EDT
[2018-07-21] MEDS ORDERED: Morphine Inj 4 MG/ML Vial IV.PUSH PRN (19:25)
[2018-07-21] MEDS ORDERED: Acetaminophen 500 MG Tablet PO PRN (19:25)
[2018-07-21 20:10] LABS: Troponin I 0.04 ng/mL (0.02-0.05)
[2018-07-21 20:22] LABS: CKMB Percent 0.9 % (0.0-4.0); Creatine Kinase MB 4.1 ng/mL (0.5-3.6)
[2018-07-21 23:23] LABS: Troponin I 0.05 ng/mL (0.02-0.05)
[2018-07-21 23:35] LABS: CKMB Percent 0.8 % (0.0-4.0); Creatine Kinase MB 3.6 ng/mL (0.5-3.6)
[2018-07-22 08:04] VITALS: O2SAT 100
--- NOTE | 2018-07-22 08:38 | P.HPCA ---
History of Present Illness Primary Care Physician: Marylin Gonzalez MD Chief Complaint: Abdominal and chest pain History of Present Illness: 58-year-old male with history of ESRD, type 2 diabetes, hypertension,, remote congestive heart failure, and legally blind presents emergency room for further evaluation of abdominal pain, dizziness, and chest pain. Onset 4 days ago. Initially occurred with repositioning. Feeling dizzy associated abdominal pain characterized as aching. Location midabdominal area with intermittent radiation to "both left and right sides" of abdomen. Associated symptoms included nausea. No change in appetite. In regards to nonexertional, chest pain, onset x2 days ago. Location left inframammary area. Characterized as dull ache. Pain rated 3/ 10. No radiation. Nausea not made worse with chest pain, denies any associated symptoms with chest discomfort. No precipitation or relieving factors. States chest discomfort seem to occur with abdominal discomfort or when he was nauseated. Denies similar pain in the past. No recent illness, fever, or injury. Known ESRD, not currently on dialysis. Recently AV fistula placed by Dr. Villarreal , stating follow up appointment with surgeon in one month. Follows closely with Dr. Granados. Past cardiac testing No past cardiac stress testing to his knowledge. History of CHF diagnosed systolic dysfunction with EF 30-35%, does not follow with a professional services manager. 06/28/14 Echocardiogram-Systolic function moderate to sever limited. ER 30-35%. No wall motion abnormalities. Mild to moderate mitral regurgitation. RV elevated systolic pressure. Mild to moderate regurgitation of tricuspid valve. PA peak pressure 60. Social history Known hypertension and diabetes. No known CAD or hyperlipidemia. Former smoker. No alcohol or recreational drug use. Legally blind. - Diagnosis (1) Atypical chest pain (2) Abdominal pain of unknown cause (3) Hypertension (4) BPH (benign prostatic hyperplasia) (5) History of congestive heart failure (6) Type II diabetes mellitus with blindness (7) ESRD (end stage renal disease) (8) Anemia Review of Systems All other systems reviewed negative except as stated in [facility] - History History Provided By: Patient - Medical History Medical History: Medical History (Last Updated 07/22/18 @ 09:24 by KRISTINE Fletcher) AV fistula Blindness of both eyes CHF (congestive heart failure) Diabetes mellitus, type 2 Duodenal perforation Onset Date: ~06/28/14 Chronic kidney disease Diabetic retinopathy Enlarged prostate Generalized body aches Hx of retinal hemorrhage Hypertension Joint pain Rheumatoid arthritis - Surgical History Surgical History: Surgical History (Last Reviewed 07/22/18 @ 08:52 by KRISTINE Fletcher) History of repair of anterior cruciate ligament of right knee Hx of exploratory laparotomy Hx of laser photocoagulation of retina - Tobacco History Second Hand Smoke Exposure: No Tobacco Use In Past 30 Days: No Smoking Status: Former smoker Tobacco Type: Cigarettes - Alcohol History How Often Do You Have a Drink Containing Alcohol: Never - Substance Use History Substance History: No History of Abuse - Travel History Recent Travel in the [place] Within the Last 8 Weeks: No Recent Travel Out of the Country Within the Last 8 Weeks: No - Immunization History Tetanus Immunization: >5 Years Medications and Allergies Active Medications: Active Medications Acetaminophen (Tylenol) 500 mg PO Q4H PRN PRN Reason: HEADACHE Hydrocodone Bitart/Acetaminophen ([place] 7.5/325) 1 tab PO Q4H PRN PRN Reason: PAIN SCALE 1 TO 7 Last Admin: 07/22/18 07:58 Dose: 1 tab Morphine Sulfate (Morphine Inj) 2 mg IV.PUSH Q4H PRN PRN Reason: PAIN SCALE 8 TO 10 Ondansetron HCl (Zofran Inj) 4 mg IV.PUSH Q6H PRN PRN Reason: NAUSEA Sodium Chloride (Ns Flush) 2 ml IV.FLUSH UNSCH PRN PRN Reason: FLUSH AFTER USING IV ACCESS Last Admin: 07/21/18 15:40 Dose: 2 ml Sodium Chloride (Ns Flush) 2 ml IV.FLUSH BID ANA Last Admin: 07/22/18 07:59 Dose: 2 ml Sodium Chloride (Ns Flush) 2 ml IV.FLUSH PRN PRN PRN Reason: FLUSH AFTER USING IV ACCESS Allergies Allergy/AdvReac Type Severity Reaction Status Date / Time gabapentin Allergy Intermediate Itching Verified 07/21/18 15:30 Home Medications Medication Instructions Recorded Confirmed Type aspirin [Adult Low Dose Aspirin] 81 mg PO DAILY 06/02/18 07/21/18 History carvedilol [Coreg] 6.25 mg PO BID 06/02/18 07/21/18 History doxazosin [Cardura] 2 mg PO DAILY 06/02/18 07/21/18 History furosemide 40 mg PO DAILY 06/02/18 07/21/18 History hydralazine 25 mg PO TID 06/02/18 07/21/18 History insulin detemir U-100 28 unit SUB-Q QPM 06/02/18 07/21/18 History nifedipine 90 mg PO DAILY 06/02/18 07/21/18 History Exam Vital signs: Vital Signs 07/21/18 15:13 07/21/18 15:17 07/21/18 15:33 Temperature 98.4 F 97.8 F 97.8 F Pulse Rate 84 83 80 Respiratory Rate 20 16 17 Blood Pressure 199/91 H 174/83 H 191/90 H Pulse Oximetry 96 100 07/21/18 16:15 07/21/18 16:38 07/21/18 17:53 Temperature 97.9 F 97.9 F Pulse Rate 79 62 Respiratory Rate 17 21 19 Blood Pressure 176/84 H 200/112 H Pulse Oximetry 99 96 07/21/18 18:09 07/21/18 21:09 07/21/18 22:22 Temperature 98.2 F Pulse Rate 87 76 86 Respiratory Rate 23 16 17 Blood Pressure 199/96 H 179/89 H 168/76 H Pulse Oximetry 100 99 07/22/18 04:33 07/22/18 08:04 Temperature 98.3 F 98.5 F Pulse Rate 81 79 Respiratory Rate 17 16 Blood Pressure 165/87 H 176/97 H Pulse Oximetry 99 100 Intake & Output 07/21/18 07/22/18 07/22/18 18:59 06:59 18:59 Output Total 400 / 400 Balance -400 / -400 Weight 77.111 kg 77.111 kg Output: Urine 400 / 400 Other: # Voids 1 Date of Last Bowel Movement 07/21/18 Weight On Admission 77.111 kg Narrative: GENERAL: Alert WN, WD, NAD, pleasant, thin, -[place] male who appears older than stated age HEAD: NC, AT EYES: Bilateral opacifications with scarring, sclera reddened ENT: Mucous membranes pink and moist, poor dentition, multiple caries NECK: Supple, no masses, trachea midline CV: RRR, without murmur, rub, gallop, no JVD, S1-S2. No carotid bruits. Left AV fistule +bruit, + thrill RESP: Clear, slightly diminished throughout bilateral, no crackles, wheeze, rhonchi, symmetrical chest rise, nonlabored, able to speak in full sentences ABD: Soft, ND, no rebound tenderness, decreased bowel tones, no masses, mildly tender midabdominal area to palpation EXT: Pulses +2x4, no dependent edema MS: Normal tone x4 extremities, nontender, no obvious deformities, full range of motion NEURO: CN II through CN XII grossly intact, motor strength 5/5 PSYCH: A+O x3, pleasant affect, appropriate speech, appropriate mood, insight and judgment SKIN: Normal turgor, normal texture, no lesions, no rashes, lower extremities dry Results 07/21/18 15:40 07/21/18 15:40 Cardiac Enzymes 07/21/18 07/21/18 07/21/18 Range/Units 15:40 15:40 19:20 AST 17 (15-37) U/L CK-MB (CK-2) 4.8 H 4.1 H (0.5-3.6) ng/mL Troponin I 0.03 0.04 (0.02-0.05) ng/mL B-Natriuretic Peptide 90 (0-100) pg/mL 07/21/18 Range/Units 22:38 AST (15-37) U/L CK-MB (CK-2) 3.6 (0.5-3.6) ng/mL Troponin I 0.05 (0.02-0.05) ng/mL B-Natriuretic Peptide (0-100) pg/mL Coagulation 07/21/18 07/21/18 Range/Units 15:40 15:40 PT 10.3 (9.8-11.6) sec APTT 26.0 (23.4-31.7) sec B-Natriuretic Peptide 90 (0-100) pg/mL CBC 07/21/18 Range/Units 15:40 WBC 7.5 (4.0-11.0) th/mm3 RBC 3.95 L (4.50-5.90) mil/mm3 Hgb 10.6 L (13.0-17.0) gm/dL Hct 31.7 L (39.0-51.0) % Plt Count 171 (150-450) th/mm3 Neut # (Auto) 5.2 (1.8-7.7) th/mm3 Lymph # (Auto) 1.6 (1.0-4.8) th/mm3 [place] # (Auto) 0.6 (0.0-0.9) th/mm3 Eos # (Auto) 0.1 (0.0-0.4) th/mm3 Baso # (Auto) 0.0 (0.0-0.2) th/mm3 Comprehensive Metabolic Panel 07/21/18 Range/Units 15:40 Sodium 141 (136-145) meq/L Potassium 4.5 (3.5-5.1) meq/L Chloride 110 H (98-107) meq/L Carbon Dioxide 21.7 (21.0-32.0) meq/L BUN 56 H (7-18) mg/dL Creatinine 4.87 H (0.60-1.30) mg/dL Calcium 8.6 (8.5-10.1) mg/dL AST 17 (15-37) U/L ALT 28 (12-78) U/L Alkaline Phosphatase 89 (45-117) U/L Total Protein 7.4 (6.4-8.2) g/dL Albumin 3.4 (3.4-5.0) g/dL Intake and Output 07/21/18 07/22/18 07/22/18 22:59 06:59 14:59 Output Total 400 / 400 Balance -400 / -400 Output: Urine 400 / 400 Other: # Voids 1 Date of Last Bowel Movement 07/21/18 Weight 77.111 kg 77.111 kg Weight On Admission 77.111 kg - Imaging and Cardiology Imaging: Impressions Chest X-Ray 07/21/18 15:33 CONCLUSION: Negative for acute process Head CT 07/21/18 15:35 CONCLUSION: 1. 1 cm hypodensity in the left centrum semiovale region new since December but I still believe its chronic. No definite acute hemorrhage or edema. 2. Calcified shrunken globes bilaterally. . Abdomen/Pelvis CT 07/21/18 17:50 CONCLUSION: 1. No acute findings within the abdomen and pelvis. 2. Markedly enlarged prostate. Tiny appendicolith without evidence for appendicitis. Small hiatal hernia. Trace pericardial fluid. EKG interpretations - EKG EKG results cardiology: sinus rhythm, normal axis, normal QRS (nonspecifict t wave changes (compared with past EKG without significant change)) Caprini VTE Risk Assessment Caprini VTE Risk Assessment: No/Low Risk (score <= 1) Caprini Risk Assessment Model: Point Value = 1 Point Value = 2 Point Value = 3 Point Value = 5 Age 41-60 Minor surgery BMI > 25 kg/m2 Swollen legs Varicose veins or History of unexplained or recurrent spontaneous Oral contraceptives or hormone replacement Sepsis (< 1 month) Serious lung disease, including pneumonia (< 1 month) Abnormal pulmonary function Acute myocardial infarction Congestive heart failure (< 1 month) History of inflammatory bowel disease Medical patient at bed rest Age 61-74 Arthroscopic surgery Major open surgery (> 45 min) Laparoscopic surgery (> 45 min) Malignancy Confined to bed (> 72 hours) Immobilizing plaster cast Central venous access Age >= 75 History of VTE Family history of VTE Factor V Leiden Prothrombin [id number] Lupus anticoagulant Anticardiolipin antibodies Elevated serum homocysteine Heparin-induced thrombocytopenia Other congenital or acquired thrombophilia Stroke (< 1 month) Elective arthroplasty Hip, pelvis, or leg fracture Acute spinal cord injury (< 1 month) Prophylaxis Regimen: Total Risk Factor Score Risk Level Prophylaxis Regimen 0-1 Low Early ambulation 2 Moderate Order ONE of the following: *Sequential Compression Device (SCD) *Heparin 5000 units SQ BID 3-4 Higher Order ONE of the following medications: *Heparin 5000 units SQ TID *Enoxaparin/Lovenox 40 mg SQ daily (WT < 150 kg, CrCl > 30 mL/min) *Enoxaparin/Lovenox 30 mg SQ daily (WT < 150 kg, CrCl > 10-29 mL/min) *Enoxaparin/Lovenox 30 mg SQ BID (WT < 150 kg, CrCl > 30 mL/min) AND/OR *Sequential Compression Device (SCD) 5 or more Highest Order ONE of the following medications: *Heparin 5000 units SQ TID (Preferred with Epidurals) *Enoxaparin/Lovenox 40 mg SQ daily (WT < 150 kg, CrCl > 30 mL/min) *Enoxaparin/Lovenox 30 mg SQ daily (WT < 150 kg, CrCl > 10-29 mL/min) *Enoxaparin/Lovenox 30 mg SQ BID (WT < 150 kg, CrCl > 30 mL/min) AND *Sequential Compression Device (SCD) Assessment and Plan - Assessment (1) Atypical chest pain Code(s): R07.89 - Other chest pain Status: Acute Plan: Admitted to chest pain center. ACS ruled out with 3 sets of EKGs and cardiac enzymes, troponin's 0.03,0.04,0.05 mild tread likely due to chronic kidney disease. Seen and evaluated by Dr. Leonardo Gilmore. Discomfort atypical for cardiac presentation however has multiple risks factors. Proceed with Lexiscan this morning. If unremarkable, plans to discharge home with follow up with primary care provider. (2) Abdominal pain of unknown cause Code(s): R10.9 - Unspecified abdominal pain Status: Acute Plan: Abdomen/pelvis CT Conclusion: 1. No acute finding within the abdomen and pelvis. 2. Markedly enlarged prostate. Tiny appendicolith with evidence for appendicitis. Small hiatal hernia. Trace pericardial fluid. Abdomen is slightly tender with palpation without rebound tenderness. Afebrile. Requesting to eat. Likely will discharge home with follow up with primary care provider. (3) Hypertension Code(s): I10 - Essential (primary) hypertension Status: Chronic Plan: Continue to monitor. Hypertension on admission, treading blood pressure decreasing. Remains hypertensive. Continue nifedipine, hydralazine and furosemide.Continue to monitor. (4) BPH (benign prostatic hyperplasia) Code(s): N40.0 - Benign prostatic hyperplasia without lower urinary tract symptoms Status: Chronic Plan: Continue doxazosin. (5) History of congestive heart failure Code(s): Z86.79 - Personal history of other diseases of the circulatory system Status: Chronic Plan: Echocardiogram reviewed from 06/28/14. No current assessment findings for heart failure. Follow up with primary care provider. (6) Type II diabetes mellitus with blindness Code(s): E11.39 - Type 2 diabetes mellitus with other diabetic ophthalmic complication; H54.7 - Unspecified visual loss Status: Chronic Plan: Hold long acting insulin while NPO. Begin moderate dose SSI coverage. (7) ESRD (end stage renal disease) Code(s): N18.6 - End stage renal disease Status: Chronic Plan: Follows closely with Dr. Granados. Dr. Villarreal recently placed AV fistula .. Per patient report likely will start dialysis in near future. Creatinine tread reviewed 12/28/17 3.44, 06/05/18 4.86, 07/21/18 4.87. (8) Anemia Code(s): D64.9 - Anemia, unspecified Status: Chronic Plan: Stable when compared to past laboratory studies. Likely related to chronic disease state. H&P: Quality - VTE Deep Vein Thrombosis/Pulmonary Embolism Present on Admission: No (3) Hypertension Qualifiers: Hypertension type: unspecified Qualified Code(s): I10 - Essential (primary) hypertension (4) BPH (benign prostatic hyperplasia) Qualifiers: Lower urinary tract symptom detail: unspecified (8) Anemia Qualifiers: Anemia type: unspecified type Qualified Code(s): D64.9 - Anemia, unspecified
[2018-07-22] MEDS ORDERED: Carvedilol 6.25 MG Tablet PO SCH (09:00)
[2018-07-22] MEDS ORDERED: Furosemide 40 MG Tablet PO SCH (09:00)
[2018-07-22] MEDS ORDERED: hydrALAZINE 25 MG Tablet PO SCH (09:00)
--- NOTE | 2018-07-22 09:00 | P.PNCA ---
Subjective Interval history: The patient was seen and examined in concert with the nurse practitioner. He is a complex presentation due to his blindness end-stage renal disease diabetes hypertension rheumatoid arthritis and known cardiomyopathy. I am in agreement with documentation as recorded with no additional information. The patient has already been evaluated using chest pain center protocol and discussion regarding further evaluation was carried out and agreed upon. A nuclear stress test will be obtained to determine if the patient has any current issues with ischemia. If this is unremarkable he will be discharged back to his outpatient care and if positive further cardiac evaluation will be requested. Medications and Allergies Active Medications: Active Medications Acetaminophen (Tylenol) 500 mg PO Q4H PRN PRN Reason: HEADACHE Hydrocodone Bitart/Acetaminophen ([place] 7.5/325) 1 tab PO Q4H PRN PRN Reason: PAIN SCALE 1 TO 7 Last Admin: 07/22/18 07:58 Dose: 1 tab Carvedilol (Coreg) 6.25 mg PO BID ANA Furosemide (Lasix) 40 mg PO DAILY ANA Hydralazine HCl (Apresoline) 25 mg PO TID ANA Morphine Sulfate (Morphine Inj) 2 mg IV.PUSH Q4H PRN PRN Reason: PAIN SCALE 8 TO 10 Non-Formulary Medication (Nifedipine [Nifedipine]) 90 mg PO DAILY ANA Ondansetron HCl (Zofran Inj) 4 mg IV.PUSH Q6H PRN PRN Reason: NAUSEA Sodium Chloride (Ns Flush) 2 ml IV.FLUSH UNSCH PRN PRN Reason: FLUSH AFTER USING IV ACCESS Last Admin: 07/21/18 15:40 Dose: 2 ml Sodium Chloride (Ns Flush) 2 ml IV.FLUSH BID ANA Last Admin: 07/22/18 07:59 Dose: 2 ml Sodium Chloride (Ns Flush) 2 ml IV.FLUSH PRN PRN PRN Reason: FLUSH AFTER USING IV ACCESS Allergies Allergy/AdvReac Type Severity Reaction Status Date / Time gabapentin Allergy Intermediate Itching Verified 07/21/18 15:30 Home Medications Medication Instructions Recorded Confirmed Type aspirin [Adult Low Dose Aspirin] 81 mg PO DAILY 06/02/18 07/21/18 History carvedilol [Coreg] 6.25 mg PO BID 06/02/18 07/21/18 History doxazosin [Cardura] 2 mg PO DAILY 06/02/18 07/21/18 History furosemide 40 mg PO DAILY 06/02/18 07/21/18 History hydralazine 25 mg PO TID 06/02/18 07/21/18 History insulin detemir U-100 28 unit SUB-Q QPM 06/02/18 07/21/18 History nifedipine 90 mg PO DAILY 06/02/18 07/21/18 History Physical Exam Vital signs: Vital Signs 07/21/18 15:13 07/21/18 15:17 07/21/18 15:33 Temperature 98.4 F 97.8 F 97.8 F Pulse Rate 84 83 80 Respiratory Rate 20 16 17 Blood Pressure 199/91 H 174/83 H 191/90 H Pulse Oximetry 96 100 07/21/18 16:15 07/21/18 16:38 07/21/18 17:53 Temperature 97.9 F 97.9 F Pulse Rate 79 62 Respiratory Rate 17 21 19 Blood Pressure 176/84 H 200/112 H Pulse Oximetry 99 96 07/21/18 18:09 07/21/18 21:09 07/21/18 22:22 Temperature 98.2 F Pulse Rate 87 76 86 Respiratory Rate 23 16 17 Blood Pressure 199/96 H 179/89 H 168/76 H Pulse Oximetry 100 99 07/22/18 04:33 07/22/18 08:04 Temperature 98.3 F 98.5 F Pulse Rate 81 79 Respiratory Rate 17 16 Blood Pressure 165/87 H 176/97 H Pulse Oximetry 99 100 Intake & Output 07/21/18 07/22/18 07/22/18 18:59 06:59 18:59 Output Total 400 / 400 Balance -400 / -400 Weight 77.111 kg 77.111 kg Output: Urine 400 / 400 Other: # Voids 1 Date of Last Bowel Movement 07/21/18 Weight On Admission 77.111 kg Narrative: Patient is blind but awake and alert Head normocephalic atraumatic Eyes corneal opacifications with extensive scarring both eyes. He is blind to light. Mouth mucous membranes moist and well papillated teeth in poor state of repair but no lesions Neck supple no JVD masses nodes or bruits Chest diminished breath sounds but clear to auscultation with no rales wheezes or rhonchi Cardiovascular PMI appears to be diffuse rhythm is regular no gallops rubs or murmurs are noted Abdomen fairly tender in the mid upper portion in the left upper quadrant but no guarding or rebound and no masses are noted Extremities no clubbing cyanosis or edema Results 07/21/18 15:40 07/21/18 15:40 Cardiac Enzymes 07/21/18 07/21/18 07/21/18 Range/Units 15:40 15:40 19:20 AST 17 (15-37) U/L CK-MB (CK-2) 4.8 H 4.1 H (0.5-3.6) ng/mL Troponin I 0.03 0.04 (0.02-0.05) ng/mL B-Natriuretic Peptide 90 (0-100) pg/mL 07/21/18 Range/Units 22:38 AST (15-37) U/L CK-MB (CK-2) 3.6 (0.5-3.6) ng/mL Troponin I 0.05 (0.02-0.05) ng/mL B-Natriuretic Peptide (0-100) pg/mL Coagulation 07/21/18 07/21/18 Range/Units 15:40 15:40 PT 10.3 (9.8-11.6) sec APTT 26.0 (23.4-31.7) sec B-Natriuretic Peptide 90 (0-100) pg/mL CBC 07/21/18 Range/Units 15:40 WBC 7.5 (4.0-11.0) th/mm3 RBC 3.95 L (4.50-5.90) mil/mm3 Hgb 10.6 L (13.0-17.0) gm/dL Hct 31.7 L (39.0-51.0) % Plt Count 171 (150-450) th/mm3 Neut # (Auto) 5.2 (1.8-7.7) th/mm3 Lymph # (Auto) 1.6 (1.0-4.8) th/mm3 [place] # (Auto) 0.6 (0.0-0.9) th/mm3 Eos # (Auto) 0.1 (0.0-0.4) th/mm3 Baso # (Auto) 0.0 (0.0-0.2) th/mm3 Comprehensive Metabolic Panel 07/21/18 Range/Units 15:40 Sodium 141 (136-145) meq/L Potassium 4.5 (3.5-5.1) meq/L Chloride 110 H (98-107) meq/L Carbon Dioxide 21.7 (21.0-32.0) meq/L BUN 56 H (7-18) mg/dL Creatinine 4.87 H (0.60-1.30) mg/dL Calcium 8.6 (8.5-10.1) mg/dL AST 17 (15-37) U/L ALT 28 (12-78) U/L Alkaline Phosphatase 89 (45-117) U/L Total Protein 7.4 (6.4-8.2) g/dL Albumin 3.4 (3.4-5.0) g/dL Intake and Output 07/21/18 07/22/18 07/22/18 22:59 06:59 14:59 Output Total 400 / 400 Balance -400 / -400 Output: Urine 400 / 400 Other: # Voids 1 Date of Last Bowel Movement 07/21/18 Weight 77.111 kg 77.111 kg Weight On Admission 77.111 kg - Imaging and Cardiology Imaging: Impressions Chest X-Ray 07/21/18 15:33 CONCLUSION: Negative for acute process Head CT 07/21/18 15:35 CONCLUSION: 1. 1 cm hypodensity in the left centrum semiovale region new since December but I still believe its chronic. No definite acute hemorrhage or edema. 2. Calcified shrunken globes bilaterally. . Abdomen/Pelvis CT 07/21/18 17:50 CONCLUSION: 1. No acute findings within the abdomen and pelvis. 2. Markedly enlarged prostate. Tiny appendicolith without evidence for appendicitis. Small hiatal hernia. Trace pericardial fluid. Assessment and Plan - Plan Patient has already ruled out for ACS and will be further evaluated with nuclear stress test. Disposition pending results
--- NOTE | 2018-07-22 09:10 | ECG ---
Date Performed: 07/21/2018 Time Performed: 22:32:46 PTAGE: 58 years EKG: Sinus rhythm POSSIBLE LEFT ATRIAL ENLARGEMENT NONSPECIFIC T-WAVE ABNORMALITY BORDERLINE ECG No significant change NO PREVIOUS TRACING DOCTOR: Leonardo Gilmore Interpretating Date/Time 07/22/2018 09:10:02
[2018-07-22] MEDS ORDERED: Regadenoson Inj 0.4 MG/5 ML Syringe IV.PUSH ONE (10:21)
[2018-07-22 11:53] VITALS: RESP 18; TEMP 98.4
[2018-07-22 11:54] VITALS: BP 195/97; PULSE 79
--- NOTE | 2018-07-22 12:06 | NM ---
EXAM DATE: 07/22/2018 12:01 PM EDT AGE/SEX: 58 years / Male INDICATIONS:Angina. . Chest pain. CLINICAL DATA: This is the patient's initial encounter. Patient reports that signs and symptoms have been present for 1 day and indicates a pain score of 4/10. MEDICAL/SURGICAL HISTORY: Diabetes. Hypertension. Renal disease. Left AV fistula, enlarged p rostate, duodenal perforation, rheumatoid arthritis. . ACL repair, exploratory laparotomy. COMPARISON: No prior exams available for comparison. DOSE: 8.7 mCi Tc 99m Myoview at rest 26.9 mCi [id number] at stress 0.4 mg Lexiscan STRESS SYMPTOMS: Chest tightness. EJECTION FRACTION: 41 % TECHNIQUE: The patient underwent pharmacologic stress with infusion of prescribed dose. Continuous ECG tracing was monitored during stress. Gated SPECT imaging was performed after stress and conventi onal SPECT imaging was performed at rest. The examination was performed on a SPECT/CT scanner, both attenuation and non-corrected datasets were reviewed. FINDINGS: Distribution: The maximum perfused segment at stress is in the septal wall. Perfusion Study: The pattern of perfusion at stress is within normal limits. Gated Study: There is mild global hypokinesis. The ejection fraction is calculated at 41%. RISK CATEGORY: Intermediate (1-3 % Annual Mortality Rate) CONCLUSION: 1. Ejection fraction 41% with mild global hypokinesis. 2. No reversible perfusion defects. Electronically signed by: Alex Marley MD 07/22/2018 12:05 PM EDT
--- NOTE | 2018-07-23 10:12 | TR ---
Date Performed: 07/22/2018 Time Performed: 10:21:18 DOCTOR: Leonardo Gilmore DRUG LIST: CLINICAL HISTORY: REASON FOR TEST: Angina REASON FOR ENDING: OBSERVATION: CONCLUSION: Lexiscan stress test was performed under standard four minute protocol. Radionuclide was injected one minute prior to ending the test. No electrocardiographic abormalities were present to suggest ischemia. Nuclear imaging and interpretation are pending. COMMENTS:
--- NOTE | 2018-07-24 00:24 | ECG ---
Date Performed: 07/21/2018 Time Performed: 19:40:08 PTAGE: 58 years EKG: Sinus rhythm POSSIBLE LEFT ATRIAL ENLARGEMENT NONSPECIFIC T-WAVE ABNORMALITY BORDERLINE ECG PREVIOUS TRACING : 07/21/2018 15.39 Since the previous tracing, no significant change noted DOCTOR: Wallace Lechuga Interpretating Date/Time 07/24/2018 00:23:04
--- NOTE | 2018-07-24 00:37 | ECG ---
Date Performed: 07/21/2018 Time Performed: 15:39:15 PTAGE: 58 years EKG: Sinus rhythm POSSIBLE LEFT ATRIAL ENLARGEMENT NONSPECIFIC T-WAVE ABNORMALITY BORDERLINE ECG PREVIOUS TRACING : 12/22/2017 15.59 Since the previous tracing, no significant change noted DOCTOR: Wallace Lechuga Interpretating Date/Time 07/24/2018 00:36:13
== END 2018-07-22 15:36 | disposition home or self-care (01) ==
LOC: NEPE 14:46 → NEDA 14:46 → NEPFCDU 21:59